=== PATIENT | male | born 1955 | race African-American/Black ===

== ENCOUNTER 2023-10-19 00:06 | Emergency (ER) | payer MEDICARE, SELFPAY ==
[2023-10-19 00:07] VITALS: BP 153/68; PULSE 89; RESP 18; TEMP 37.2; O2SAT 96; BMI 22.2
--- NOTE | 2023-10-19 00:25 | EDS_ITS ---
HPI History of Present Illness Chief Complaint: General Illness Informant: patient and family Narrative Narrative: Family member brings in his patient because has not been feeling well for 3 days, and he seemed a little confused tonight. Patient states he had a bout of diarrhea today. States has been feeling generally weak and a little dehydrated. He has urinary frequency, so he has not been drinking as much water because it makes him have to urinate even more. He is a diabetic but was controlled with diet, then 1 point he was put on metformin but he went to the doctor his blood sugar was low so they took him off the metformin estimated 6 months or so ago. The last time he checked his blood sugar with a finger prick was about 2 months ago. Family member states she was gone for 9 days with some friends and came back to him like this and it is a big change. [facility] Medical History (Updated 10/19/23 @ 04:[address] Juan M Ferris MD) Hearing deficit Type 2 diabetes mellitus Allergy/AdvReac Type Severity Reaction Status Date / Time No Known Allergies Allergy Verified 10/19/23 00:07 Social History Smoking Status: Never smoker ROS ROS ED Constitutional Constitutional ED: Reports fatigue and malaise; Denies chills or fever(s) Eyes Eyes: Denies change in vision or diplopia ENT ENT ED: Reports dry mouth; Denies rhinorrhea or sore throat Cardiovascular Cardiovascular: Denies chest pain or palpitations Respiratory/Chest Respiratory/Chest: Denies cough or dyspnea Gastrointestinal Gastrointestinal: Reports diarrhea; Denies abdominal pain, nausea or vomiting Genitourinary Genitourinary ED: Reports urinary frequency; Denies dysuria or hematuria Musculoskeletal Musculoskeletal: Denies back pain or neck pain Integumentary Denies abscess or rash Neurologic Neurologic: Reports confusion; Denies headache(s), paresthesias or weakness Psychiatric Psychiatric: Denies anxiety or suicidal thoughts EXAM Physical Exam Const Vital Signs: 10/19/23 00:07 10/19/23 01:00 10/19/23 02:12 Temperature 98.9 F 99.9 F H Temperature Source Oral Oral Pulse Rate 89 68 Respiratory Rate 18 16 Respiratory Effort Normal Respiratory Pattern Normal Blood Pressure 153/68 H 153/68 H Blood Pressure Mean 96 96 Pulse Ox 96 98 Oxygen Delivery Method Room Air 10/19/23 02:20 10/19/23 02:30 10/19/23 02:45 Temperature 99.5 F H Temperature Source Oral Pulse Rate Respiratory Rate Respiratory Effort Respiratory Pattern Blood Pressure 153/71 H 145/67 H Blood Pressure Mean 93 89 Pulse Ox 99 98 97 Oxygen Delivery Method Positive well nourished and well developed General Appearance ED: well developed and NAD HEENT Reports moist mucous membranes normocephalic and atraumatic Eyes PERRL and EOMs intact bilaterally Neck full ROM, no lymphadenopathy, supple, no meningeal signs and thyroid normal Chest Wall inspection of chest normal and palpation of chest normal Resp normal respiratory effort and clear to auscultation bilaterally Cardio regular rate, regular rhythm and no murmurs Rate: tachycardic GI non-tender and non-distended Auscultation: normoactive bowel sounds Palpation: soft Back/Spine no CVA tenderness General Back: other FROM Extremity normal to inspection General Extremety ED: Negative for edema, pulses abnormal or tenderness General Extremity: Negative for edema or pulses abnormal Neuro oriented x3, CN's II-XII intact bilaterally and no sensory deficits noted Sensorium / Orientation: awake and alert Motor Exam: strength 5/5 throughout Skin no rashes or lesions noted and no wounds MDM MDM MDM Narrative Medical decision making narrative: Patient sounds like he is having urinary frequency possibly due to hyperglycemia possibly due to infection. We started with a BGT, it is 246, which is abnormally high but not as high as I expected. He is not dyspneic or tachypneic or appearing like he is in DKA. Obtain some basic labs in addition to urinalysis. Did an EKG, he was initially tachycardic but by the time EKG was obtained his pulse was down to the 80s, it is abnormal but there is no old 1 for comparison so I ran a troponin. It is within normal limits and he has been having symptoms for several days. His other blood counts are noted. His BUN and creatinine are abnormal but I do not have any other values to compare it with since he has never been here before. However I was able to access [facility] and see that he had a record from 2018 at [facility] showing a normal creatinine of 0.84 with a BUN of 19 as part of a renal function panel. Of course, it is unknown if his creatinine elevation is acute or happened a long time ago as there is 6 years in between these 2 measurements. I do not think he needs to be admitted for this abnormality at this time, it can be followed up on as an outpatient. In discussing his blood sugar further with him, he admits that he removed himself from metformin when his blood sugar was low at 1 point. I advised him to go back on the medication which he has at home, and reassured him that this medication will not cause a hypoglycemic reaction. It took him a while to give us a urine sample, it shows proteinuria but no signs of infection. Patient is doing well clinically and hemodynamically. At this time my recommendation is to go back on his metformin, stay hydrated, and follow-up with his doctor for repeat testing. The proteinuria suggest kidney injury, but he is also probably dehydrated due to the glycosuria. This will need to be repeated but he does not need to be admitted for emergently. History & Record Review Additional record(s) reviewed:: Prior labs (, 11/21/2017 renal function panel) Lab Data Attestation: I reviewed the patient's lab results. Labs: Laboratory Results - last 24 hr 10/19/23 10/19/23 10/19/23 00:45 01:10 02:55 WBC 9.9 RBC 3.97 L Hgb 11.2 L Hct 35.2 L MCV 88.7 MCH 28.2 MCHC 31.8 L RDW Std Deviation 42.5 RDW Coeff of Natalee 13.0 Plt Count 146 L MPV 11.8 Immature Gran % (Auto) 1.200 H Neut % (Auto) 83.0 H Lymph % (Auto) 5.7 L Elbert % (Auto) 9.9 Eos % (Auto) 0.0 Baso % (Auto) 0.2 Absolute Neuts (auto) 8.2 H Absolute Lymphs (auto) 0.56 L Nucleated RBC % 0 Sodium 133 L Potassium 3.7 Chloride 99 Carbon Dioxide 28.0 Anion Gap 6 BUN 32 H Creatinine 1.70 H Estim Creat Clear Calc 39.12 Est GFR (MDRD) Af Amer 51 L Est GFR (MDRD) Non-Af 43 L BUN/Creatinine Ratio 18.8 Glucose 201 H Calcium 8.8 Troponin I High Sens 58 Urine Color Yellow Urine Clarity Clear Urine pH 6.0 Ur Specific [place] 1.015 Urine Protein 500 H Urine Glucose (UA) Normal Urine Ketones 5 H Urine Occult Blood 50 H Urine Nitrite Negative Urine Bilirubin Negative Urine Urobilinogen Normal Ur Leukocyte Esterase Negative Urine RBC 0 SEEN Urine WBC 0 SEEN Ur Squamous Epith Cells 0 SEEN Urine Bacteria 1+ Urine Mucus 0 SEEN POC Glucose 247 H Rhythm Strip Rhythm Strip: Sinus Rhythm Rate: 90 Ectopy: PVC(s) EKG Initial EKG: Attestation: I personally reviewed and interpreted this EKG as follows: Interpretation: Sinus Rhythm and Non-Specific ST Changes (0.5mm STD V4-6 and I, aVL laterally w/ T wave inv's, upsloping FRANK V1-2 1mm) Prior EKG tracings: not available for review Prior: No Prior Discharge Plan Triage Chief Complaint: General Illness ED Provider: Juan M Ferris Dx/Rx/DC Orders Clinical Impression: Hyperglycemia due to type 2 diabetes mellitus, Renal insufficiency, Proteinuria Instructions: Diabetes and Kidney Disease, Blood Sugar Check Steps Primary Care Provider: Sivan Henderson Referrals: Sivan Henderson MD [Primary Care Provider] - 3-5 Days Activity Restrictions/Additional Instructions: Take your metformin as previously prescribed. Drink plenty of water. Print Language: Indonesian Disposition Disposition: Home, Self Care
--- NOTE | 2023-10-19 00:25 | EKG12_ITS ---
Test Reason : BB Blood Pressure : / mmHG Vent. Rate : 091 BPM Atrial Rate : 091 BPM P-R Int : 166 ms QRS Dur : 088 ms QT Int : 318 ms P-R-T Axes : 062 -07 101 degrees QTc Int : 391 ms Sinus rhythm with occasional Premature ventricular complexes Possible Left atrial enlargement Left ventricular hypertrophy ( R in aVL , Sokolow-Gilbert ) ST & T WAVE ABNORMALITY, PROBABLY LVH Abnormal ECG Confirmed by Karlos Saleh ([id number]), acquisition editor HYACINTH CORONADO ([id number]) on 10/19/2023 8:11:37 AM Referred By: Confirmed By:Karlos Saleh
[2023-10-19 01:00] VITALS: BP 153/68; PULSE 68; RESP 16; TEMP 37.7; O2SAT 98
[2023-10-19 01:08] LABS: Absolute Lymphocyte Count 0.56 X10^3/uL (0.83-4.51); Absolute Neutrophil Count 8.2 X10^3/uL (2.0-7.7); Basophil# 0.02 X10^3/uL; Basophil% 0.2 % (0-1); Hematocrit 35.2 % (40-54); Hemoglobin 11.2 g/dL (13.0-16.5); Lymphocyte # 0.56 X10^3/ul (0.83-4.51); Lymphocyte % 5.7 % (19-41); Mean Corp Hgb Conc 31.8 g/dL (32-36); Mean Corpuscular Hgb 28.2 pg (27.0-32.0); Mean Corpuscular Volume 88.7 fL (80-94); Mean Platelet Vol. 11.8 fl (6.2-12.0); Monocyte# 0.98 X10^3/uL; Monocyte% 9.9 % (0-10); NRBC Flagged by Analyzer 0 % (0-5); Neutrophil # 8.19 X10^3/uL (2.7-7.7); POSITIVE DIFFERENTIAL YES; Platelet Count 146 K/mm3 (150-450); RBC Distribution Width SD 42.5 fl (35.1-43.9); Red Blood Count 3.97 M/mm3 (4.6-6.2); White Blood Count 9.9 K/mm3 (4.4-11.0)
[2023-10-19 01:26] LABS: Anion Gap 6 (5-15); BUN 32 mg/dL (7-18); BUN/Creat Ratio 18.8 RATIO (10-20); Calcium,Total 8.8 mg/dL (8.5-10.1); Chloride 99 mmol/L (98-107); EST Glomerular Filtration Rate 43 mL/min (>60); Est Glom Filt Rate - Afr Amer 51 mL/min (>60); Estimated Creatinine Clearance 39.12 ml/min; Glucose 201 mg/dL (74-106); Potassium 3.7 mmol/L (3.5-5.1); Sodium Level 133 mmol/L (136-145); Troponin-I HS 58 pg/mL (3.0-78.0)
[2023-10-19 01:29] LABS: Bedside Glucose 247 mg/dL (74-106)
[2023-10-19] MEDS: 0.9% Normal Saline (1000mL) 1,000 ML 999 ML IV (02:07)
[2023-10-19 02:20] VITALS: O2SAT 99
[2023-10-19 02:30] VITALS: BP 153/71; O2SAT 98
[2023-10-19 02:45] VITALS: BP 145/67; TEMP 37.5; O2SAT 97
[2023-10-19 03:01] LABS: Mucous, Urine 0 SEEN /hpf (<or=2+); Red Blood Cells-Urine 0 SEEN /hpf (0-5); Squamous Epithelial Cells - UA 0 SEEN /hpf (0-5); White Blood Cells 0 SEEN /hpf (0-5)
[2023-10-19 03:02] LABS: Glucose, Dipstick Normal (Normal); Ketone-Dipstick 5 mg/dl (Negative); Leukocyte Esterase-Dipstick Negative /ul (Negative); Nitrite-Dipstick Negative (Negative); Occult Blood-Urine 50 /ul (Negative); Protein-Dipstick 500 mg/dl (Negative); Specific Gravity, Urine 1.015 (1.002-1.030); Urine Bilirubin Dipstick Negative (Negative); Urine Urobilinogen Normal (Normal)
[2023-10-19 03:03] LABS: Color, Urine Yellow (Yellow); Urine Clarity Clear (Clear)
[2023-10-19 03:51] LABS: Bacteria 1+ /hpf (None Seen)
[2023-10-19 04:29] VITALS: BP 140/67; PULSE 72; RESP 16; TEMP 36.3; O2SAT 99
== END 2023-10-19 04:40 | disposition home or self-care (01) ==
PROVIDERS: Emergency Provider Emergency Medicine; PCP Family Medicine Sports Medicine; Visit Provider Emergency Medicine
DX: E11.65 Type 2 diabetes mellitus with hyperglycemia (principal); R80.9 Proteinuria, unspecified; N28.9 Disorder of kidney and ureter, unspecified
CPT/HCPCS: 96360; 99283; 80048; 81001; 82962; 84484; 85025; 93005; J7030; A4216

== ENCOUNTER 2023-10-21 20:06 | Inpatient (IN) | payer MEDICARE, SELFPAY ==
[2023-10-21] VITALS (9 sets, daily range): BP systolic 124–184; BP diastolic 63–84; PULSE 72–84; RESP 15–26; TEMP 36.4–37.1; O2SAT 94–100; BMI 23.6; BMI 21.9
--- NOTE | 2023-10-21 20:31 | EKG12_ITS ---
Test Reason : DYSRHYTHMIA Blood Pressure : / mmHG Vent. Rate : 086 BPM Atrial Rate : 086 BPM P-R Int : 154 ms QRS Dur : 092 ms QT Int : 366 ms P-R-T Axes : 070 003 073 degrees QTc Int : 437 ms Normal sinus rhythm Possible Left atrial enlargement Minimal voltage criteria for LVH, may be normal variant ( Sokolow-Gilbert ) Cannot rule out Septal infarct , age undetermined Abnormal ECG Confirmed by Karlos Saleh ([id number]), mapping editor PRICE CHAVEZ ([id number]) on 10/22/2023 10:15:13 AM Referred By: Confirmed By:Karlos Saleh
--- NOTE | 2023-10-21 20:32 | CT_ITS ---
STUDY: CT BRAIN WITHOUT CONTRAST REASON FOR EXAM: Male, 68 years old. dizzy RADIATION DOSAGE (If Supplied By Facility): CTDIvol = ( 44.99 ) mGy, DLP = ( 796.11 ) mGycm TECHNIQUE: Transaxial CT imaging of the brain was performed without administration of intravenous contrast material. Individualized dose optimization techniques were used for this CT. COMPARISON: No relevant priors. FINDINGS: Normal soft tissue structures. Normal calvarium. There is mild cerebral atrophy with widening of the extra-axial spaces and ventricular dilatation. There are areas of decreased attenuation within the white matter tracts of the supratentorial brain, consistent with microvascular disease changes. 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 Normal brainstem. Normal cerebellum. 5 mm round dense mass with possible small calcifications within the third ventricle and correlation with MRI with contrast would be useful. There is no intracranial hemorrhage. There are no findings of an acute ischemic infarction. Mucosal thickening of the right maxillary sinus consistent with chronic sinusitis. CT/Brain/Head without Contrast IMPRESSION: Chronic involutional changes of the brain. 5 mm round mass within the third ventricle and correlation with MRI with contrast recommended. Electronically Signed: Quintin Padilla MD at 21:04 EDT ,
--- NOTE | 2023-10-21 20:32 | EX.ED.DYSGE1 ---
HPI <TERESO Fermin - Last Filed: 10/21/23 22:05> History of Present Illness Chief Complaint: Fever Narrative Narrative: Patient is a 68-year-old male with history of hypertension hyperlipidemia, diabetes who presents to the emerged department for ongoing weakness, fever and chills. Patient is speaking for the patient, the patient is alert however slightly somnolent, patient does appear to be confused. Per the , the patient has been feeling this way for the last 4 to 5 days. Over the last 2 days, the patient had a 102 fever at home. Patient was seen here on early Wednesday morning, and was discharged home. The patient has not gotten better is actually getting worse. The is concerned because the patient is not acting like himself. Patient is urinating more frequently and sometimes incontinent. The did not give any antipyretics at home. PFSH <TERESO Fermin - Last Filed: 10/21/23 22:05> [facility] Medical History (Updated 10/21/23 @ 22:[address] Luis Carlos Wolff, DO) Hearing deficit Type 2 diabetes mellitus Home Medications ?Medication ?Instructions ?Recorded ?Last Taken ?Type ascorbic acid (vitamin C) 1,000 mg 1,000 mg PO DAILY 10/21/23 Unknown History tablet,extended release (C Complex) aspirin 81 mg chewable tablet 1 tab PO DAILY 10/21/23 Unknown History (Aspirin Childrens) atorvastatin 40 mg tablet 40 mg PO QHS 10/21/23 Unknown History cholecalciferol (vitamin D3) 25 25 mcg PO DAILY 10/21/23 Unknown History mcg (1,000 unit) capsule (Vitamin D3) lisinopril 40 mg tablet 40 mg PO DAILY 10/21/23 Unknown History metformin 500 mg tablet 500 mg PO BID 10/21/23 Unknown History metoprolol succinate 50 mg 50 mg PO DAILY 10/21/23 Unknown History tablet,extended release 24 hr multivitamin (Daily Multi-Vitamin 1 tab PO DAILY 10/21/23 Unknown History tablet) vitamin B12 500 mcg-folic acid 400 1 tab PO DAILY 10/21/23 Unknown History mcg tablet Allergy/AdvReac Type Severity Reaction Status Date / Time No Known Allergies Allergy Verified 10/21/23 20:09 Social History Smoking Status: Never smoker ROS <TERESO Fermin - Last Filed: 10/21/23 22:05> ROS ED ROS Narrative Constitutional: Negative for weight loss. Positive for fever, chills, weakness Eyes: Negative for vision loss, vision change, double vision ENT: Negative for any sore throat, ear pain, congestion Cardiovascular: Negative for any chest pain, tightness, palpitations Respiratory: Negative for any cough, sputum production, hemoptysis, dyspnea, dyspnea on exertion, orthopnea Gastrointestinal: Negative for any abdominal pain, nausea, vomiting, diarrhea, constipation, blood in stool, blood in vomit : Negative for any dysuria, retention, blood in urine. Positive for urinary frequency Muscle skeletal: Negative for any neck pain, back pain Neurological: Negative for any headache, syncope. Positive for dizziness Skin: Negative for any rashes, itching, abrasions, lacerations Psychiatric: Negative for any depression, anxiety, stress, suicidal ideation, homicidal ideation Hematologic: Negative for any excessive bruising, easy bleeding EXAM <Jorge L Ordoñez NP-C - Last Filed: 10/21/23 22:05> Physical Exam Narrative Exam Narrative: Vital signs reviewed. Patient is febrile here at 38.1. Patient is alert and orient x 1-2 however the does most the talking. The patient does appear to lose his thought when he starts speaking. HEET: Head normocephalic atraumatic, TMs clear bilaterally. Posterior pharynx is clear, dry mucous membranes. Nares clear bilaterally. Neck: Supple with no lymphadenopathy or tenderness. No signs of meningismus. Cardiac: Regular rate and rhythm no murmurs gallops or rubs, equal peripheral pulses bilaterally. Respiratory: Lung sounds are clear upper lobes, diminished lower lobes. No chest tenderness. Abdomen: Soft, nontender, nondistended. No abdominal bruit or pulsatile masses. No hepatosplenomegaly Extremities: No peripheral edema, no signs of gross trauma or deformity. Active full range of motion of all extremities. Neuro: Cranial nerves II through XII intact, no focal neurological deficits. Skin: Clean dry and intact with no rash, purpura, petechiae, vesicles or pustules. Backs/flank: No CVA tenderness, no midline spinal tenderness, no deformity. Psych: Normal mood and affect. No SI, HI or acute psychosis. Const Vital Signs: 10/21/23 20:07 10/21/23 20:09 10/21/23 21:09 Temperature 98.8 F 98.8 F 98.2 F Temperature Source Temporal Temporal Temporal Pulse Rate 84 84 84 Respiratory Rate 16 16 18 Blood Pressure 144/63 H 144/63 H 184/84 H Blood Pressure Mean 90 90 117 Pulse Ox 97 94 100 Oxygen Delivery Method Room Air Room Air Room Air 10/21/23 21:15 10/21/23 22:00 10/21/23 22:06 Temperature 98.5 F Temperature Source Temporal Pulse Rate 79 Respiratory Rate 16 Blood Pressure 133/63 H 133/63 H Blood Pressure Mean 86 86 Pulse Ox 96 Oxygen Delivery Method Room Air Room Air 10/21/23 22:30 Temperature 98.5 F Temperature Source Pulse Rate 80 Respiratory Rate 16 Blood Pressure 144/65 H Blood Pressure Mean 91 Pulse Ox 95 Oxygen Delivery Method Positive well nourished and well developed General Appearance ED: well developed <Dr. Luis Carlos Wolff DO - Last Filed: 10/21/23 22:43> Physical Exam Const Vital Signs: 10/21/23 20:07 10/21/23 20:09 10/21/23 21:09 Temperature 98.8 F 98.8 F 98.2 F Temperature Source Temporal Temporal Temporal Pulse Rate 84 84 84 Respiratory Rate 16 16 18 Blood Pressure 144/63 H 144/63 H 184/84 H Blood Pressure Mean 90 90 117 Pulse Ox 97 94 100 Oxygen Delivery Method Room Air Room Air Room Air 10/21/23 21:15 10/21/23 22:00 10/21/23 22:06 Temperature 98.5 F Temperature Source Temporal Pulse Rate 79 Respiratory Rate 16 Blood Pressure 133/63 H 133/63 H Blood Pressure Mean 86 86 Pulse Ox 96 Oxygen Delivery Method Room Air Room Air 10/21/23 22:30 Temperature 98.5 F Temperature Source Pulse Rate 80 Respiratory Rate 16 Blood Pressure 144/65 H Blood Pressure Mean 91 Pulse Ox 95 Oxygen Delivery Method MDM <TERESO Fermin - Last Filed: 10/21/23 22:05> MDM Lab Data Labs: Laboratory Results - last 24 hr 10/21/23 10/21/23 20:25 21:08 WBC 14.1 H RBC 4.18 L Hgb 11.9 L Hct 36.6 L MCV 87.6 MCH 28.5 MCHC 32.5 RDW Std Deviation 41.7 RDW Coeff of Natalee 13.0 Plt Count 206 MPV 11.8 Immature Gran % (Auto) 0.400 Neut % (Auto) 87.8 H Lymph % (Auto) 4.2 L [place] % (Auto) 7.5 Eos % (Auto) 0.0 Baso % (Auto) 0.1 Absolute Neuts (auto) 12.3 H Absolute Lymphs (auto) 0.59 L Nucleated RBC % 0 Differential Comment SEE COMMENT Platelet Estimate ADEQUATE RBC Morphology N CHROM Anisocytosis RARE PT 15.2 H INR 1.2 APTT 39.0 H Sodium 129 L Potassium 4.3 Chloride 96 L Carbon Dioxide 25.0 Anion Gap 8 BUN 29 H Creatinine 2.06 H Estim Creat Clear Calc 33.37 Est GFR (MDRD) Af Amer 41 L Est GFR (MDRD) Non-Af 34 L BUN/Creatinine Ratio 14.1 Glucose 240 H Lactic Acid 1.8 Calcium 8.6 Total Bilirubin 0.50 AST 79 H ALT 55 Alkaline Phosphatase 105 Total Protein 8.5 H Albumin 2.5 L Globulin 6.0 H Albumin/Globulin Ratio 0.4 L Urine Color Yellow Urine Clarity Sl. Cloudy Urine pH 6.0 Ur Specific [place] 1.015 Urine Protein 500 H Urine Glucose (UA) Normal Urine Ketones Negative Urine Occult Blood 25 H Urine Nitrite Negative Urine Bilirubin Negative Urine Urobilinogen Normal Ur Leukocyte Esterase Negative Urine RBC 0-5 SEEN Urine WBC 0-5 SEEN Ur Squamous Epith Cells 0-5 SEEN Amorphous Sediment 2+ URATE Urine Bacteria RARE Urine Mucus 0 SEEN Radiography Diagnostic Testing: Clinical Impression(s) from Imaging Studies Brain CT 10/21/23 20:32 IMPRESSION: Chronic involutional changes of the brain. 5 mm round mass within the third ventricle and correlation with MRI with contrast recommended. Electronically Signed: Quintin Padilla MD at 21:04 EDT Reading Location ID and State: [id number] / [employer] Tel , Service support , Chest X-Ray 10/21/23 20:50 IMPRESSION: Left lower lobe pneumonia. Electronically Signed: Quintin Padilla MD at 21:04 EDT , EKG Normal sinus rhythm: Attestation: I personally reviewed and interpreted this EKG as follows: Treatment and Re-Evaluation :: Differential diagnosis includes however is not limited to: Septicemia, UTI, COVID-19 influenza, RSV, CVA, dehydration, hyperglycemia Patient does appear weak, does appear ill appearing, he was febrile on my initial evaluation. He is alert however some of his answers are not appropriate. Per the , this is not like him. Patient secondary to the fever, multiple days of altered mental status, patient received a septic workup. Patient received a chest x-ray, CT scan of the brain. Urinalysis basic laboratory values. Patient be given oral Tylenol because he has not received any recently. IV fluids will be given. All radiologic examinations were read, reviewed by the emergency department attending. From these reads, a plan of care will be put in place. Patient CBC shows a leukocytosis with a white blood count of 14.1, hemoglobin 11.9, patient's PT was 15.2 with an INR of 1.2 APTT 39.0. Patient's sodium was low at 129, it was 133 2 days ago. Patient's creatinine was 2.06, 2 days ago was 1.7. Patient's AST is 79, patient currently waiting for CT scan of the brain, chest x-ray. Patient given IV fluids, oral Tylenol. <Dr. Luis Carlos Wolff, DO - Last Filed: 10/21/23 22:43> [facility] Narrative Medical decision making narrative: I have personally performed a face to face assessment of the patient and have reviewed the SANDRA Note. I performed a substantive portion of the visit including all aspects of the following. My tenorio findings include: History is [patient presents to the emergency department with complaint of fever and confusion x 5 days. Seen in the emergency department 5 days ago for same complaint. Fever up to 102. He had had 1 or 2 episodes of diarrhea. He was given fluids and had a workup in the emergency department and sent home. He continued with fever. He is weak and having a hard time ambulating and making at the bathroom on time. He stumbles. Has been off balance. Denies headache. Denies chest pain. Denies abdominal pain. No rashes. He has had no vomiting or diarrhea or significant cough.] Exam is [HEENT-PERRLA, EOMI. Cranial nerves II through XII grossly intact. TMs clear. Mucous membranes moist. No adenopathy. Cardiovascular-regular rate and rhythm without murmur or ectopy Lungs-clear to auscultation, chest wall stable without crepitus or subcu emphysema Abdomen-normoactive bowel sounds, soft, nontender, no rebound or rigidity, no peritoneal signs. Extremities-intact ?4, normal range of motion, normal pulses, atraumatic] Medical Decison Making [patient presents with fever and confusion ongoing for at least 5 days. Seen in the emergency department 4 days ago had workup that was relatively benign. IV line established. Blood cultures ordered. CBC with differential white count of 14.1 with hemoglobin 11.9 platelet count of 206. Chemistries unremarkable. BUN was elevated 29 and creatinine 2.06. Glucose was 240. Urinalysis was unremarkable 1 view chest x-ray obtained showed left lower lobe infiltrate. Patient started on Rocephin and Zithromax. CT scan of the brain without contrast obtained showed 5 mm mass in the third ventricle and recommended obtaining MRI to evaluate further.] Case discussed with hospitalist will evaluate patient for admission Other additions or changes: [None] Lab Data Attestation: I reviewed the patient's lab results. Labs: Laboratory Results - last 24 hr 10/21/23 10/21/23 20:25 21:08 WBC 14.1 H RBC 4.18 L Hgb 11.9 L Hct 36.6 L MCV 87.6 MCH 28.5 MCHC 32.5 RDW Std Deviation 41.7 RDW Coeff of Natalee 13.0 Plt Count 206 MPV 11.8 Immature Gran % (Auto) 0.400 Neut % (Auto) 87.8 H Lymph % (Auto) 4.2 L [place] % (Auto) 7.5 Eos % (Auto) 0.0 Baso % (Auto) 0.1 Absolute Neuts (auto) 12.3 H Absolute Lymphs (auto) 0.59 L Nucleated RBC % 0 Differential Comment SEE COMMENT Platelet Estimate ADEQUATE RBC Morphology N CHROM Anisocytosis RARE PT 15.2 H INR 1.2 APTT 39.0 H Sodium 129 L Potassium 4.3 Chloride 96 L Carbon Dioxide 25.0 Anion Gap 8 BUN 29 H Creatinine 2.06 H Estim Creat Clear Calc 33.37 Est GFR (MDRD) Af Amer 41 L Est GFR (MDRD) Non-Af 34 L BUN/Creatinine Ratio 14.1 Glucose 240 H Lactic Acid 1.8 Calcium 8.6 Total Bilirubin 0.50 AST 79 H ALT 55 Alkaline Phosphatase 105 Total Protein 8.5 H Albumin 2.5 L Globulin 6.0 H Albumin/Globulin Ratio 0.4 L Urine Color Yellow Urine Clarity Sl. Cloudy Urine pH 6.0 Ur Specific [place] 1.015 Urine Protein 500 H Urine Glucose (UA) Normal Urine Ketones Negative Urine Occult Blood 25 H Urine Nitrite Negative Urine Bilirubin Negative Urine Urobilinogen Normal Ur Leukocyte Esterase Negative Urine RBC 0-5 SEEN Urine WBC 0-5 SEEN Ur Squamous Epith Cells 0-5 SEEN Amorphous Sediment 2+ URATE Urine Bacteria RARE Urine Mucus 0 SEEN Radiography Diagnostic Testing: Clinical Impression(s) from Imaging Studies Brain CT 10/21/23 20:32 IMPRESSION: Chronic involutional changes of the brain. 5 mm round mass within the third ventricle and correlation with MRI with contrast recommended. Electronically Signed: Quintin Padilla MD at 21:04 EDT Reading Location ID and State: [address] [place] [address] Tel , Service support , Chest X-Ray 10/21/23 20:50 IMPRESSION: Left lower lobe pneumonia. Electronically Signed: Quintin Padilla MD at 21:04 EDT Reading Location ID and State: [place] / [employer] Tel , Service support , 1 view chest x-ray obtained interpreted by myself as increased markings left lower lobe suspicious for infiltrate. Radiology in agreement. EKG Initial EKG: Attestation: I personally reviewed and interpreted this EKG as follows: Comments: Sinus rhythm with rate of 86 bpm with old septal infarct Discharge Plan Dx/Rx/DC Orders Clinical Impression: Fever, Pneumonia, Confusion, Mass of brain Disposition Disposition: Acute Care [facility]
[2023-10-21 20:40] LABS: Mucous, Urine 0 SEEN /hpf (<or=2+)
[2023-10-21 20:43] LABS: Color, Urine Yellow (Yellow); Glucose, Dipstick Normal (Normal); Ketone-Dipstick Negative (Negative); Leukocyte Esterase-Dipstick Negative /ul (Negative); Nitrite-Dipstick Negative (Negative); Occult Blood-Urine 25 /ul (Negative); Protein-Dipstick 500 mg/dl (Negative); Specific Gravity, Urine 1.015 (1.002-1.030); Urine Bilirubin Dipstick Negative (Negative); Urine Clarity Sl. Cloudy (Clear); Urine Urobilinogen Normal (Normal)
--- NOTE | 2023-10-21 20:50 | RAD_ITS ---
STUDY: X-RAY CHEST REASON FOR EXAM: Male, 68 years old. cough TECHNIQUE: Single AP portable view of the chest. COMPARISON: None. FINDINGS: Status post median sternotomy. Alveolar opacity in the lower left lung consistent with left lower lobe pneumonia. There is no demonstrated pleural abnormality. Normal size heart. Normal mediastinum and nam. Normal visualized pulmonary arteries. Normal visualized aortic arch and descending thoracic aorta. Normal visualized thoracic spine. Normal visualized ribs, clavicles, and shoulders. There is no demonstrated abnormality of the visualized soft tissue structures of the upper abdomen. RAD/Chest 1 View (Portable) IMPRESSION: Left lower lobe pneumonia. Electronically Signed: Quintin Padilla MD at 21:04 EDT ,
[2023-10-21 20:53] LABS: Amorphous Sediment 2+ URATE; Bacteria RARE /hpf (None Seen); Red Blood Cells-Urine 0-5 SEEN /hpf (0-5); Squamous Epithelial Cells - UA 0-5 SEEN /hpf (0-5); White Blood Cells 0-5 SEEN /hpf (0-5)
[2023-10-21 21:18] LABS: Absolute Lymphocyte Count 0.59 X10^3/uL (0.83-4.51); Absolute Neutrophil Count 12.3 X10^3/uL (2.0-7.7); Basophil# 0.02 X10^3/uL; Basophil% 0.1 % (0-1); Hematocrit 36.6 % (40-54); Hemoglobin 11.9 g/dL (13.0-16.5); Lymphocyte # 0.59 X10^3/ul (0.83-4.51); Lymphocyte % 4.2 % (19-41); Mean Corp Hgb Conc 32.5 g/dL (32-36); Mean Corpuscular Hgb 28.5 pg (27.0-32.0); Mean Corpuscular Volume 87.6 fL (80-94); Mean Platelet Vol. 11.8 fl (6.2-12.0); Monocyte# 1.05 X10^3/uL; Monocyte% 7.5 % (0-10); NRBC Flagged by Analyzer 0 % (0-5); Neutrophil # 12.34 X10^3/uL (2.7-7.7); Neutrophil % 87.8 % (47-70); POSITIVE DIFFERENTIAL YES; Platelet Count 206 K/mm3 (150-450); RBC Distribution Width SD 41.7 fl (35.1-43.9); Red Blood Count 4.18 M/mm3 (4.6-6.2); White Blood Count 14.1 K/mm3 (4.4-11.0)
[2023-10-21] MEDS: 0.9% Normal Saline (1000mL) 1,000 ML 999 ML IV (21:18)
[2023-10-21] MEDS: Acetaminophen 500 MG Tablet 1000 MG PO (21:22)
[2023-10-21 21:31] LABS: International Normalized Ratio 1.2; Prothrombin Time (Protime)PT. 15.2 SECONDS (11.7-14.9)
[2023-10-21 21:37] LABS: ALB/GLOB Ratio 0.4 RATIO (0.9-2.4); AST(SGOT) 79 U/L (15-37); Alanine Aminotransfer ALT/SGPT 55 U/L (16-61); Albumin, Serum 2.5 g/dL (3.2-5.0); Alkaline Phosphatase 105 U/L (45-117); Anion Gap 8 (5-15); BUN 29 mg/dL (7-18); BUN/Creat Ratio 14.1 RATIO (10-20); Calcium,Total 8.6 mg/dL (8.5-10.1); Chloride 96 mmol/L (98-107); Creatinine, Serum 2.06 mg/dL (0.70-1.30); EST Glomerular Filtration Rate 34 mL/min (>60); Est Glom Filt Rate - Afr Amer 41 mL/min (>60); Estimated Creatinine Clearance 33.37 ml/min; Glucose 240 mg/dL (74-106); Potassium 4.3 mmol/L (3.5-5.1); Protein, Total 8.5 g/dL (6.4-8.2); Sodium Level 129 mmol/L (136-145)
[2023-10-21 21:44] LABS: Lactic Acid 1.8 mmol/L (0.4-1.9)
[2023-10-21 21:46] LABS: Differential Indicated SCAN CRITERIA MET
[2023-10-21 21:48] LABS: Anisocytosis RARE; Platelet Estimate ADEQUATE (ADEQ); Red Cell Morphology N CHROM NORMAL (NORM C&C)
[2023-10-21] MEDS: Ceftriaxone 1 GM/50 ML BAG IV (22:25)
--- NOTE | 2023-10-21 22:32 | PCM.HP.STD ---
HPI - General General Date of Admission: 10/21/23 Date of Service: 10/21/23 Chief Complaint: Fever and Confusion. HPI Narrative RIAN PONCE, is a 68 M with a past medical history of essential hypertension, hyperlipidemia, DM-2; of unknown control on metformin and recent evaluation in our ER here for fever, diarrhea and altered mental status with suspicion for possible adverse drug reaction to metformin on October 19, 2023, who re-presents to [facility] ER complaining of fever and confusion. Mr. Ponce is not a fully-reliable historian at this time so information was gathered from chart, medical staff, computer and his at the bedside. According to his the patient's symptoms began approximately 4 to 5 days prior to admission with intermittent fevers up to 102 ?F for the past 2 days that she treated with oral Tylenol. The patient also admits to increased urination and intermittent urinary incontinence and his is concerned because he is not acting like himself and his was at the bedside and greatly helped to augment the history. There is no report of nausea, vomiting, constipation, chest pain or shortness of breath but he does admit to generalized weakness with ambulatory dysfunction. In the ER he was noted to have radiographic evidence of a Left lower lobe infiltrate consistent with suspected community-acquired pneumonia with laboratory evidence of leukocytosis of 14.1 present on admission complicated by clinical evidence of respiratory insufficiency and laboratory evidence of mild dehydration with an elevated serum creatinine of 2.06 mg/dL and a BUN of 29 mg/dL (up from his baseline of 1.76 mg/dL) a few days ago with mild hyponatremia of 129 mmol/L present on admission and hypoalbuminemia of 2.5 g/dL present on admission suspicious for protein-calorie malnutrition compounded by acute metabolic encephalopathy and generalized weakness with ambulatory dysfunction with CT evidence of a ~5 mm round mass in his third ventricle with recommendation made to obtain MRI and he was then admitted to the general medical floor for ongoing care for status expected to be greater than 2 midnights. [facility] Medical History HTN (hypertension) Hearing deficit Type 2 diabetes mellitus Home Medications ?Medication ?Instructions ?Recorded ?Last Taken ?Type ascorbic acid (vitamin C) 1,000 mg 1,000 mg PO DAILY 10/21/23 Unknown History tablet,extended release (C Complex) aspirin 81 mg chewable tablet 1 tab PO DAILY 10/21/23 Unknown History (Aspirin Childrens) atorvastatin 40 mg tablet 40 mg PO QHS 10/21/23 Unknown History cholecalciferol (vitamin D3) 25 25 mcg PO DAILY 10/21/23 Unknown History mcg (1,000 unit) capsule (Vitamin D3) garlic 100 mg tablet 100 mg PO DAILY 10/21/23 Unknown History lisinopril 40 mg tablet 40 mg PO DAILY 10/21/23 Unknown History metformin 500 mg tablet 500 mg PO BID 10/21/23 Unknown History metoprolol succinate 50 mg 50 mg PO DAILY 10/21/23 Unknown History tablet,extended release 24 hr multivitamin (Daily Multi-Vitamin 1 tab PO DAILY 10/21/23 Unknown History tablet) omega-3 fatty acids 500 mg PO DAILY 10/21/23 Unknown History vitamin B12 500 mcg-folic acid 400 1 tab PO DAILY 10/21/23 Unknown History mcg tablet Allergy/AdvReac Type Severity Reaction Status Date / Time No Known Allergies Allergy Verified 10/21/23 20:09 Social History Smoking Status: Never smoker ROS ROS Narrative Full review of systems was not possible due to patient's acute illness and metabolic encephalopathy causing confusion. Vital Signs Vital Signs Vital Signs: 10/21/23 20:07 10/21/23 20:09 10/21/23 21:09 Temperature 98.8 F 98.8 F 98.2 F Temperature Source Temporal Temporal Temporal Pulse Rate 84 84 84 Respiratory Rate 16 16 18 Blood Pressure 144/63 H 144/63 H 184/84 H Blood Pressure Mean 90 90 117 Pulse Ox 97 94 100 Oxygen Delivery Method Room Air Room Air Room Air 10/21/23 21:15 10/21/23 22:00 10/21/23 22:06 Temperature 98.5 F Temperature Source Temporal Pulse Rate 79 Respiratory Rate 16 Blood Pressure 133/63 H 133/63 H Blood Pressure Mean 86 86 Pulse Ox 96 Oxygen Delivery Method Room Air Room Air 10/21/23 22:30 Temperature 98.5 F Temperature Source Pulse Rate 80 Respiratory Rate 16 Blood Pressure 144/65 H Blood Pressure Mean 91 Pulse Ox 95 Oxygen Delivery Method Weight Weight: 160 lb Body Mass Index (BMI) 23.6 Physical Exam Const alert, no apparent distress and average body habitus Constitutional Narrative: Patient appears acutely ill and is notably febrile and confused. General Appearance: cooperative Orientation / Consciousness: confused and lethargic HEENT normocephalic, head/scalp atraumatic and hearing grossly normal bilaterally HEENT Narrative: Mucous membranes dry. Eyes PERRL and EOMs intact bilaterally Neck no lymphadenopathy and supple Resp Resp Narrative: Decreased breath sounds over left lower lobe. Cardio regular rate and regular rhythm GI normal to inspection, nondistended, normoactive bowel sounds, soft to palpation, non-tender and non-distended Extremity normal to inspection and full ROM Skin Skin Narrative: Patient has no evidence of abscess, rash or jaundice. Neuro CN's II-XII intact bilaterally, moves all extremities and no focal motor deficits Sensorium / Orientation: awake, alert, oriented to person and oriented to place Speech: speech normal Psych affect normal Results Medical Records Data Attestation: I reviewed the patient's medical records Lab / Micro Data Attestation: I reviewed the patient's lab results. 10/21/23 21:08 10/21/23 21:08 Labs: Laboratory Results - last 24 hr 10/21/23 20:25: Urine Color Yellow, Urine Clarity Sl. Cloudy, Urine pH 6.0, Ur Specific [place] 1.015, Urine Protein 500 H, Urine Glucose (UA) Normal, Urine Ketones Negative, Urine Occult Blood 25 H, Urine Nitrite Negative, Urine Bilirubin Negative, Urine Urobilinogen Normal, Ur Leukocyte Esterase Negative, Urine RBC 0-5 SEEN, Urine WBC 0-5 SEEN, Ur Squamous Epith Cells 0-5 SEEN, Amorphous Sediment 2+ URATE, Urine Bacteria RARE, Urine Mucus 0 SEEN 10/21/23 21:08: WBC 14.1 H, RBC 4.18 L, Hgb 11.9 L, Hct 36.6 L, MCV 87.6, MCH 28.5, MCHC 32.5, RDW Std Deviation 41.7, RDW Coeff of Natalee 13.0, Plt Count 206, MPV 11.8, Immature Gran % (Auto) 0.400, Neut % (Auto) 87.8 H, Lymph % (Auto) 4.2 L, [place] % (Auto) 7.5, Eos % (Auto) 0.0, Baso % (Auto) 0.1, Absolute Neuts (auto) 12.3 H, Absolute Lymphs (auto) 0.59 L, Nucleated RBC % 0, Differential Comment SEE COMMENT, Platelet Estimate ADEQUATE, RBC Morphology N CHROM, Anisocytosis RARE, PT 15.2 H, INR 1.2, APTT 39.0 H, Sodium 129 L, Potassium 4.3, Chloride 96 L, Carbon Dioxide 25.0, Anion Gap 8, BUN 29 H, Creatinine 2.06 H, Estim Creat Clear Calc 33.37, Est GFR (MDRD) Af Amer 41 L, Est GFR (MDRD) Non-Af 34 L, BUN/Creatinine Ratio 14.1, Glucose 240 H, Lactic Acid 1.8, Calcium 8.6, Total Bilirubin 0.50, AST 79 H, ALT 55, Alkaline Phosphatase 105, Total Protein 8.5 H, Albumin 2.5 L, Globulin 6.0 H, Albumin/Globulin Ratio 0.4 L Micro: Microbiology 10/21/23 20:56 Mucosa - Nasopharyngeal SARS-CoV-2, Influenza & RSV (PCR) - Final Imaging Radiology Impression Brain CT 10/21/23 20:32 IMPRESSION: Chronic involutional changes of the brain. 5 mm round mass within the third ventricle and correlation with MRI with contrast recommended. Electronically Signed: Quintin Padilla MD at 21:04 EDT Reading Location ID and State: [id number] / [employer] Tel , Service support , Chest X-Ray 10/21/23 20:50 IMPRESSION: Left lower lobe pneumonia. Electronically Signed: Quintin Padilla MD at 21:04 EDT Reading Location ID and State: [id number] / [employer] Tel , Service support , Assessment & Plan Assessment/Plan (1) Pneumonia: QUALIFIERS: Laterality: left Lung location: lower lobe of lung Pneumonia type: due to unspecified organism Qualified Code(s): J18.9 - Pneumonia, unspecified organism (2) Respiratory insufficiency: (3) Mass of brain: (4) Confusion: (5) Fever: QUALIFIERS: Fever type: due to other condition Qualified Code(s): R50.81 - Fever presenting with conditions classified elsewhere (6) Renal insufficiency: (7) Dehydration: (8) Hyponatremia: (9) Hypoalbuminemia: (10) Generalized weakness: (11) Ambulatory dysfunction: (12) Adverse drug reaction: QUALIFIERS: Encounter type: initial encounter Qualified Code(s): T50.905A - Adverse effect of unspecified drugs, medicaments and biological substances, initial encounter (13) Diarrhea: QUALIFIERS: Diarrhea type: unspecified type Qualified Code(s): R19.7 - Diarrhea, unspecified PLAN: Plan 1. Left lower lobe infiltrate consistent with suspected community-acquired pneumonia with leukocytosis of 14.1 present on admission - Admit to general medical floor. Continue broad-spectrum antibiotics with IV Rocephin and IV azithromycin and await culture and sensitivity data. Check urine antigens for Legionella and strep pneumonia. Give Mucinex 1200 mg p.o. twice daily. 2. Respiratory insufficiency attributable to #1 - Wean supplemental oxygen as tolerated. 3. CT evidence of a ~5 mm round mass in his third ventricle with recommendation made to obtain MRI compounding #1 & #2 - Check MRI of the brain as recommended by radiology. 4. Mild hyponatremia of 129 mmol/L along with additional laboratory evidence of dehydration with elevated serum creatinine of 2.06 milligram per deciliter present on admission (up from his baseline of 1.76 mg/dL) a few days ago compounding #1 - #3 - Volume resuscitate with normal saline IV fluid and recheck levels in a.m. to ensure improvement. Hold lisinopril or any other potentially nephrotoxic agents. Check urine and serum osmolality. 5. Hypoalbuminemia of 2.5 g/dL present on admission suspicious for protein calorie malnutrition adding to the pathology of #1 - #4 - Check prealbumin to confirm suspicion. Add Ensure to meals. 6. Recent evaluation in the ER here for fever, diarrhea and altered mental status with suspicion for possible adverse drug reaction to metformin on October 19, 2023 - Noted. Metformin will be stopped in any case due to decreased renal function and suspected ongoing side effects. Check stool studies to evaluate for possible infectious cause of diarrhea and placed on enteric precautions. Hemoccult stools. 7. Acute metabolic encephalopathy arising from #1 - #6 - Continue supportive care outlined above and monitor for improvement. Check TSH, B12, folate, UDS and DWIGHT to evaluate for other potential reversible causes of confusion. 8. Generalized weakness with ambulatory dysfunction emanating from #1 - #7 - PT/OT and case management to consult and treat further recommendations without appreciated advance. 9. Essential hypertension - Resume treatment with metoprolol but hold lisinopril. Give IV hydralazine as needed for systolic blood pressure greater than 160 mmHg. 10. Hyperlipidemia - Continue statin. 11. DM-2; of unknown control on metformin - ADA diet. FSBS q. AC/HS plus lowest intensity sliding scale insulin. Check hemoglobin A1c to objectively evaluate quality of diabetic control. 12. DVT prophylaxis - Heparin 5000 units SQ twice daily plus SCDs. Total time: Approximately 75 minutes. Charges/Coding Visit Charges Inpatient E&M: 60897 Init Hosp L3
[2023-10-21] MEDS: Azithromycin 500 MG in Dextrose 5%-Water (250mL Bag) 250 ML 250 MG IV (23:07)
[2023-10-21 23:52] LABS: Osmolality, Urine 415 mOsm/KG
[2023-10-21 23:57] LABS: Hemoglobin A1c 8.1 % (3.8-5.6)
[2023-10-22] VITALS (14 sets, daily range): BP systolic 115–160; BP diastolic 64–92; PULSE 59–89; RESP 15–28; TEMP 37.1–38.8; O2SAT 94–99; BMI 23.3
[2023-10-22 00:12] LABS: Amphetamine Urine NEGATIVE (<1000 ng/mL); Barbiturate Urine NEGATIVE (< 200 ng/mL); Benzodiazepine Urine NEGATIVE (< 200 ng/mL); Cocaine Urine NEGATIVE (< 300 ng/mL); Ecstacy Urine NEGATIVE (< 500 ng/mL); Methadone Urine NEGATIVE (< 300 ng/mL); Opiates Urine NEGATIVE (< 300 ng/mL); PCP Urine NEGATIVE (< 25 ng/mL); THC Urine NEGATIVE (< 50 ng/mL); Vista UDS pH Range 4
[2023-10-22] MEDS: 0.9% Normal Saline (1000mL) 1,000 ML 70 ML IV ×3 (00:23→21:35)
[2023-10-22 00:33] LABS: Prealbumin 7.6 mg/dL (20.0-40.0); Thyroid Stim Hormone (TSH) 3.03 uIU/mL (0.358-3.74)
[2023-10-22 00:38] LABS: Vitamin B12 478 pg/mL (211-911)
[2023-10-22 01:45] LABS: Osmolality, Serum 291 mOsm/KG (280-301)
[2023-10-22] MEDS: Acetaminophen 325 MG Tablet 650 MG PO ×2 (05:30→23:21)
[2023-10-22 06:49] LABS: Absolute Lymphocyte Count 0.37 X10^3/uL (0.83-4.51); Absolute Neutrophil Count 11.1 X10^3/uL (2.0-7.7); Basophil# 0.02 X10^3/uL; Basophil% 0.2 % (0-1); Hemoglobin 10.7 g/dL (13.0-16.5); Lymphocyte # 0.37 X10^3/ul (0.83-4.51); Mean Corp Hgb Conc 32.4 g/dL (32-36); Mean Corpuscular Hgb 27.9 pg (27.0-32.0); Mean Corpuscular Volume 86.2 fL (80-94); Mean Platelet Vol. 12.1 fl (6.2-12.0); Monocyte# 0.92 X10^3/uL; Monocyte% 7.3 % (0-10); NRBC Flagged by Analyzer 0 % (0-5); Neutrophil # 11.14 X10^3/uL (2.7-7.7); Neutrophil % 88.9 % (47-70); POSITIVE DIFFERENTIAL YES; Platelet Count 181 K/mm3 (150-450); RBC Distribution Width CV 12.9 % (11.6-14.6); RBC Distribution Width SD 40.4 fl (35.1-43.9); Red Blood Count 3.83 M/mm3 (4.6-6.2); White Blood Count 12.5 K/mm3 (4.4-11.0)
[2023-10-22 07:11] LABS: Bedside Glucose 185 mg/dL (74-106)
--- NOTE | 2023-10-22 07:36 | PN.HOSP_ITS ---
Reason for Visit Reason for Visit: Fever/confusion Subjective Subjective Patient is a 68-year-old white male who presented to the emergency department at [facility] on 10/21/2023 with fever and confusion he presented to the emergency department here on 18 October with some fever, diarrhea, and altered mental status and there was some suspicion for possible adverse drug reaction to metformin at that time and he was discharged home. At this admission his gave most of the history and she reported that 4 to 5 days prior to admission he was having intermittent fevers up to 102 that have been predominantly present over the last 2 days that she had treated with Tylenol as well as increased urination with intermittent incontinence and the was concerned because he was not acting like himself. He had also had concomitant generalized weakness and gait dysfunction. Vital signs on presentation showed temperature 98.8, heart rate was 84, blood pressure was 144/63 and pulse ox was 97% on room air. Tmax since admission is 102. CBC on presentation showed a significant leukocytosis with a stable appearing anemia. There was a significant left shift with an 87.8% neutrophilia. Coags were slightly elevated from baseline. Chemistry panel showed hyponatremia with a sodium of 129 elevated BUN at 29 and serum creatinine of 2.06 with unknown baseline and a glucose of 240. His liver functions were fairly unremarkable. Vitamin B12 was normal folate was normal and TSH was 3.03. CT of the brain showed chronic delusional changes and a 5 mm round mass in the third ventricle. Chest x-ray was suggestive of a left lower lobe infiltrate on the rate however I did not appreciate it on my review of the imaging. Strep pneumo and Legionella antigens are negative. COVID/flu/RSV was unremarkable. Blood and urine cultures were obtained however his UA was not suggestive of infection. He was admitted to the medical floor and placed on CAP coverage with azithromycin and ceftriaxone. Patient seems to be mentating better. He is alert and oriented x 3 at this point. We did discuss the fact that we found a small stroke on his MRI and that is why we transition him down to PCU. Patient states overall he is feeling better as well. He denies any significant cough at this time however he did say that he had some cough about 3 days ago at 1 point he had some blood-tinged sputum but has not had any since. Objective Data Objective Data Vital Signs: Vital Signs Temp Pulse Resp BP Pulse Ox O2 Del Method 98.9 F 89 18 160/69 H 96 Room Air 10/22/23 06:53 10/22/23 05:00 10/22/23 05:21 10/22/23 05:00 10/22/23 07:21 10/22/23 07:21 Oxygen Delivery Method Room Air Weight: 71.6 kg Body Mass Index (BMI) 23.3 Intake & Output: Intake and Output for Last 24 Hours 10/20/23 10/21/23 10/22/23 23:59 23:59 23:59 Intake Total 1050 / 1100 455 / 455 Output Total 400 / 400 Balance 1050 / 1100 55 / 55 Lab / Micro Data 10/22/23 06:28 10/22/23 06:28 Labs: Laboratory Results - last 24 hr 10/21/23 20:25: Urine Color Yellow, Urine Clarity Sl. Cloudy, Urine pH 6.0, Ur Specific [place] 1.015, Urine Protein 500 H, Urine Glucose (UA) Normal, Urine Ketones Negative, Urine Occult Blood 25 H, Urine Nitrite Negative, Urine Bilirubin Negative, Urine Urobilinogen Normal, Ur Leukocyte Esterase Negative, Urine RBC 0-5 SEEN, Urine WBC 0-5 SEEN, Ur Squamous Epith Cells 0-5 SEEN, Amorphous Sediment 2+ URATE, Urine Bacteria RARE, Urine Mucus 0 SEEN, Urine Osmolality 415, Urine Opiates Screen NEGATIVE, Urine Methadone Screen NEGATIVE, Ur Barbiturates Screen NEGATIVE, Ur Phencyclidine Scrn NEGATIVE, Ur Amphetamines Screen NEGATIVE, MDMA (Ecstasy) Screen NEGATIVE, U Benzodiazepines Scrn NEGATIVE, Urine Cocaine Screen NEGATIVE, U Cannabinoids Screen NEGATIVE, Ur Drug Screen Comment 10/21/23 21:08: WBC 14.1 H, RBC 4.18 L, Hgb 11.9 L, Hct 36.6 L, MCV 87.6, MCH 28.5, MCHC 32.5, RDW Std Deviation 41.7, RDW Coeff of Natalee 13.0, Plt Count 206, MPV 11.8, Immature Gran % (Auto) 0.400, Neut % (Auto) 87.8 H, Lymph % (Auto) 4.2 L, [place] % (Auto) 7.5, Eos % (Auto) 0.0, Baso % (Auto) 0.1, Absolute Neuts (auto) 12.3 H, Absolute Lymphs (auto) 0.59 L, Nucleated RBC % 0, Differential Comment SEE COMMENT, Platelet Estimate ADEQUATE, RBC Morphology N CHROM, Anisocytosis RARE, PT 15.2 H, INR 1.2, APTT 39.0 H, Sodium 129 L, Potassium 4.3, Chloride 96 L, Carbon Dioxide 25.0, Anion Gap 8, BUN 29 H, Creatinine 2.06 H, Estim Creat Clear Calc 33.37, Est GFR (MDRD) Af Amer 41 L, Est GFR (MDRD) Non-Af 34 L, BUN/Creatinine Ratio 14.1, Glucose 240 H, Hemoglobin A1c 8.1 H, Lactic Acid 1.8, Calcium 8.6, Total Bilirubin 0.50, AST 79 H, ALT 55, Alkaline Phosphatase 105, T otal Protein 8.5 H, Albumin 2.5 L, Globulin 6.0 H, Albumin/Globulin Ratio 0.4 L, Prealbumin 7.6 L, Folate 30.00, TSH 3.03 10/21/23 23:56: Serum Osmolality 291, Vitamin B12 478, Ethyl Alcohol 3.0 10/22/23 06:28: WBC 12.5 H, RBC 3.83 L, Hgb 10.7 L, Hct 33.0 L, MCV 86.2, MCH 27.9, MCHC 32.4, RDW Std Deviation 40.4, RDW Coeff of Natalee 12.9, Plt Count 181, M PV 12.1 H, Immature Gran % (Auto) 0.600, Neut % (Auto) 88.9 H, Lymph % (Auto) 3.0 L, [place] % (Auto) 7.3, Eos % (Auto) 0.0, Baso % (Auto) 0.2, Absolute Neuts (auto) 11.1 H, Absolute Lymphs (auto) 0.37 L, Nucleated RBC % 0 10/22/23 06:47: POC Glucose 185 H Micro: Microbiology 10/21/23 20:25 Urine, Clean Catch Legionella Antigen - Final 10/21/23 20:25 Urine, Clean Catch Streptococcus pneumoniae Antigen (M - Final 10/21/23 20:56 Mucosa - Nasopharyngeal SARS-CoV-2, Influenza & RSV (PCR) - Final Radiography Diagnostic Testing: Radiology Impression Brain CT 10/21/23 20:32 IMPRESSION: Chronic involutional changes of the brain. 5 mm round mass within the third ventricle and correlation with MRI with contrast recommended. Electronically Signed: Quintin Padilla MD at 21:04 EDT Reading Location ID and State: [id number] / [employer] Tel , Service support , Chest X-Ray 10/21/23 20:50 IMPRESSION: Left lower lobe pneumonia. 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 technician at bedside, patient appears comfortable, does not appear toxic, very pleasant, appears younger than stated age, patient does appear to be chilling as he is wrapped in multiple blankets HEENT head/scalp atraumatic and moist oral mucous membranes HEENT Narrative: Mallampati is 2, no thrush Eyes PERRL, EOMs intact bilaterally and conjunctivae normal Eyes Narrative: No scleral icterus Neck no lymphadenopathy and supple Neck Narrative: Trachea midline, no thyroid enlargement Resp normal respiratory effort, no retractions, no use of accessory muscles and clear to auscultation bilaterally Auscultation: Negative for rales, rhonchi or wheezes Cardio regular rate, regular rhythm, S1 normal heart sound, S2 normal heart sound, no murmurs, no rub, no gallops and no clicks GI normal to inspection, nondistended, normoactive bowel sounds, soft to palpation and non-tender Extremity no clubbing, cyanosis or edema Extremity Narrative: Pedal pulses are 2+ Neuro oriented x3, moves all extremities and no focal motor deficits Speech: speech normal Psych affect normal Psych Narrative: Very pleasant, interacts appropriately Assessment & Plan Assessment/Plan (1) Generalized weakness: (2) Mass of brain: (3) Confusion: (4) Fever: QUALIFIERS: Fever type: due to other condition Qualified Code(s): R50.81 - Fever presenting with conditions classified elsewhere (5) Elevated serum creatinine: (6) Hyponatremia: (7) Dehydration: (8) Toxic metabolic encephalopathy: PLAN: Plan Fever -Chest x-ray was suggestive of left lower lobe pneumonia per radiology read however I did not appreciate this specifically on my review and it does not sound like the patient has been producing any sputum or having any significant cough -Blood and urine cultures are pending -UA was not suggestive of infection -Check procalcitonin -Add on sputum culture if patient can produce -Continue azithromycin and ceftriaxone -Will likely be able to discontinue azithromycin soon as Legionella was negative -Tmax in the last 24 hours was 102 degrees Leukocytosis -White count was greater than 14,000 on admission with a significant left shift -Trended down today but still elevated -See above workup -Repeat CBC in a.m. Acute right 9 mm lacunar infarct of the right [place]ez radiata -Aspirin 81 mg daily -Continue home atorvastatin -Check lipid panel -Check hemoglobin A1c -Check echocardiogram -Check NIH's -Carotid Dopplers -MRA brain -Continue to address vascular risk modifications -Neuro has been consulted and they had no significant changes from the already made plan Toxic/metabolic encephalopathy -Likely related to the above -Patient is now alert and oriented x 3 seems to be resolved -CT was unremarkable for any acute findings that would cause this etiology -Continue to monitor clinically Elevated serum creatinine secondary to suspected dehydration -Baseline is unknown -It was 1.7 when he was here to 48 hours prior to this presentation and greater than 2 on admission -Continue IV fluids with normal saline at 70 cc/h for now -Avoid nephrotoxins as able -Hold home lisinopril with elevated serum creatinine -Awaiting a.m. lab Hyponatremia -Appears to be related to hypovolemic hyponatremia baseline serum and urine osmolality No urine sodium obtained -Continue to monitor--> I do not believe we need any further workup at this time -Also could be related to pneumonia if actually present -AM labs pending Generalized weakness/debility -Suspect related to the above infection -PT/OT consultation -Case management/social work consulted for assistance with discharge planning Third ventricle mass -[address] -MRI shows an 8 mm lesion within or adjacent to the right side of the third ventricle which was indicative of ependymoma, subependymoma or central neuro cytoma, choroid plexus papilloma or intraventricular meningioma -Neuro has been consulted await input -Etiology and significance unclear Essential hypertension -Continue metoprolol -Lisinopril on hold due to renal dysfunction -As needed hydralazine for systolic blood pressure greater than 160 Hyperlipidemia -Continue home atorvastatin DM-2 -Uncontrolled with a hemoglobin A1c of 8.1 -Hold home oral agents given elevated serum creatinine -SSI -Cardiac/carb controlled diet -Accu-Cheks as ordered -May need to add basal insulin depending on fasting blood sugars DVT prophylaxis -Continue subcu heparin twice daily CODE STATUS -Full code is verified today Charges/Coding Visit Charges Inpatient E&M: 53702 Subs Hosp L3
[2023-10-22 08:29] LABS: Lactic Acid 1.1 mmol/L (0.4-1.9)
--- NOTE | 2023-10-22 08:30 | MRI_ITS ---
We are attempting to reach an attending provider to discuss findings. An addendum with communication details will be sent when the communication is complete. EXAM: MR HEAD WITHOUT AND WITH INTRAVENOUS CONTRAST CLINICAL INDICATION: 5 mm mass in third ventricle on head CT. TECHNIQUE: Multiplanar and multisequence MR images of the brain were obtained without and with intravenous contrast. CONTRAST: IV 14 CC CLARISCAN COMPARISON: No relevant prior studies available. FINDINGS: BRAIN AND EXTRA-AXIAL SPACES: 9 mm focus of restricted diffusion noted along the right cortez radiata suggestive of acute lacunar infarct. Chronic lacunar infarcts are seen within the thalami bilaterally. Diffuse periventricular white matter changes also consistent with chronic microvascular change. Prominence of the cortical sulci and ventricles related to volume loss change. 8 mm partially calcified nonenhancing mass lesion noted along the right side of the third ventricle which may represent an ependymoma, subependymoma, central neurocytoma, choroid plexus papilloma or intraventricular meningioma. SELLA: Normal. Normal sella turcica, pituitary gland, infundibular stalk, optic chiasm and hypothalamus. AUDITORY SYSTEM: Normal. The internal auditory canals are patent. BONES/JOINTS: Intact calvarium. SINUSES: Prominent mucosal thickening within the right maxillary sinus. MASTOID AIR CELLS: Unremarkable as visualized. Clear. ORBITS: Unremarkable as visualized. Both globes, extraocular muscles, optic nerves and retrobulbar fat appear unremarkable. VASCULATURE: Unremarkable as visualized. Normal flow voids in the major intracranial circulation. MRI/Brain W/WO Contrast IMPRESSION: 1. Acute right 9 mm lacunar type infarct involving the right cortez radiata. 2. 8mm lesion within or adjacent to the right side of third ventricle which may represent, an ependymoma, subependymoma, central neurocytoma, choroid plexus papilloma or intraventricular meningioma. Electronically Signed: Blair Hinojosa MD at 10:30 EDT ,
[2023-10-22 08:33] LABS: ALB/GLOB Ratio 0.4 RATIO (0.9-2.4); AST(SGOT) 59 U/L (15-37); Alanine Aminotransfer ALT/SGPT 39 U/L (16-61); Albumin, Serum 1.9 g/dL (3.2-5.0); Alkaline Phosphatase 89 U/L (45-117); Anion Gap 9 (5-15); BUN 25 mg/dL (7-18); BUN/Creat Ratio 14.7 RATIO (10-20); Calcium,Total 8.2 mg/dL (8.5-10.1); Chloride 101 mmol/L (98-107); EST Glomerular Filtration Rate 43 mL/min (>60); Est Glom Filt Rate - Afr Amer 51 mL/min (>60); Estimated Creatinine Clearance 40.43 ml/min; Globulin 4.9 g/dL (2.2-4.2); Glucose 184 mg/dL (74-106); Magnesium 2.1 mg/dL (1.6-2.6); Protein, Total 6.8 g/dL (6.4-8.2); Sodium Level 130 mmol/L (136-145)
[2023-10-22] MEDS: Aspirin 81 MG TAB.CHEW PO (09:28)
[2023-10-22] MEDS: Lactobacillis Acidophilus 2 CAP PO ×2 (09:29→21:37)
[2023-10-22] MEDS: Ascorbic Acid 500 MG Tablet 1000 MG PO (09:29)
[2023-10-22] MEDS: Metoprolol(XL)Succ 50 MG Tablet PO (09:29)
[2023-10-22] MEDS: Multivitamins,Therapeutic Tablet 1 TABLET PO (09:29)
[2023-10-22] MEDS: Heparin Injection (Vial) 5,000 UNIT/ML VIAL 5000 UNIT SC ×2 (09:29→21:37)
[2023-10-22] MEDS: Cholecalciferol (VIT D3) 25 MCG TABLET (1,000 UNITS) PO (09:30)
[2023-10-22] MEDS: Sodium Phosphate/Na Biphos 21 MMOL in 0.9% Normal Saline (250mL Bag) 250 ML 84 MMOL IV (10:14)
--- NOTE | 2023-10-22 10:57 | ECHOD_ITS ---
Reason For Study: TIA/STROKE Procedure This was a 2D Doppler, Color Flow transthoracic echocardiogram. Exam performed portable in patient room. Left Ventricle Normal LV size. The estimated ejection fraction is 60 %. No evidence for diastolic dysfunction. No regional wall motion abnormalities noted. Right Ventricle Normal RV size. Normal systolic function. Atria The left atrium is mildly enlarged. Normal right atrium. Normal atrial septum. Bubble contrast study negative for right to left interatrial shunt. Mitral Valve There is no mitral valve stenosis. Trivial mitral valve insufficiency. Tricuspid Valve There is no tricuspid stenosis. Trivial tricuspid valve insufficiency. Unable to estimate RV systolic pressure due to insufficient tricuspid regurgitant envelope. Aortic Valve Trisinus/trileaflet aortic valve. Aortic sclerosis, no stenosis. There is no aortic stenosis. No aortic valve insufficiency. Pulmonic Valve There is no pulmonic valvular stenosis. Trivial pulmonic valve insufficiency. Great Vessels Normal aortic root. Pericardium/Pleural No pericardial effusion. Medication Performed a rapid injection of agitated mix of 9 cc saline and 1cc air to assess for atrial septal defect. MMode/2D Measurements & Calculations LVIDd: 4.8 cm IVSd: 1.4 cm Ao root diam: 3.5 cm LVIDs: 4.0 cm LVPWd: 1.3 cm RVDd: 3.8 cm FS: 17.1 % LAV(MOD-bp): 64.0 ml LVAd ap2: 31.9 cm2 SV(MOD-sp2): 57.6 ml LAV(MOD-bp) Indexed: 33.3 ml/m2 LVLd ap2: 8.1 cm LAV(MOD-sp2): 68.1 ml EDV(MOD-sp2): 104.5 ml LAV(MOD-sp4): 60.1 ml EDV(sp2-el): 106.6 ml LVAs ap2: 20.4 cm2 LVLs ap2: 7.7 cm ESV(MOD-sp2): 46.9 ml ESV(sp2-el): 45.9 ml EF(MOD-sp2): 55.1 % LA A4 area: 19.5 cm2 LA dimension(2D): 4.3 cm RA A4 area: 12.3 cm2 TAPSE: 0.88 cm Time Measurements MV dec time: 0.21 sec Doppler Measurements & Calculations MV E max keith: 92.5 cm/sec Lat Peak E' Keith: 14.0 cm/sec Med Peak E' Keith: 8.2 cm/sec MV A max keith: 93.4 cm/sec E/E' lat: 6.6 E/E' med: 11.3 MV E/A: 0.99 MV V2 max: 91.8 cm/sec Ao V2 max: 142.9 cm/sec MV max P.4 mmHg MV dec slope: 475.2 cm/sec2 Ao max P.2 mmHg MV V2 mean: 64.2 cm/sec Ao V2 mean: 104.7 cm/sec MV mean P.8 mmHg Ao mean P.0 mmHg MV V2 VTI: 30.4 cm Ao V2 VTI: 25.5 cm AV (velocity ratio): 0.83 LV V1 max: 120.2 cm/sec PA V2 max: 92.5 cm/sec PI end-d keith: 120.8 cm/sec LV V1 max P.8 mmHg PA V2 mean: 67.9 cm/sec LV V1 mean P.4 mmHg LV V1 mean: 86.3 cm/sec LV V1 VTI: 21.1 cm ECHO/Echo Complete Interpretation Summary The estimated ejection fraction is 60 %. No evidence for diastolic dysfunction. The left atrium is mildly enlarged. Trivial mitral valve insufficiency. Ordering Physician: Sheri Montenegro Referring Physician: RICHAR RAINES Performed By: Lorin Chicas RCS
--- NOTE | 2023-10-22 10:57 | CDU_ITS ---
Reason For Study: HX Stroke Rt. Velocities/BP Lt. Velocities/BP Prox CCA 81.0/10.8 cm/sec. Prox CCA 113.9/15.1 cm/sec. Mid CCA 107.3/21.7 cm/sec. Mid CCA 164.4/21.7 cm/sec. Dist CCA 153.4/30.5 cm/sec. Dist CCA 135.9/8.6 cm/sec. Prox ICA 107.3/17.3 cm/sec. Prox ICA 118.3/17.3 cm/sec. Mid ICA 133.8/22.8 cm/sec. Mid ICA 76.6/15.1 cm/sec. Dist ICA 83.2/17.3 cm/sec. Dist ICA 100.8/21.7 cm/sec. Rt. ICA/CCA = 1.2. Lt. ICA/CCA = 0.50. Prox ECA 140.3/4.2 cm/sec. Prox ECA 131.5/4.2 cm/sec. Rt. Vert. 63.4/10.8 cm/sec. Lt. Vert. 72.2/17.3 cm/sec. Right Extracranial There is heterogeneous, irregular atherosclerotic plaque noted in the right common carotid artery. There is heterogeneous, irregular atherosclerotic plaque noted in the right internal carotid artery. The distal right internal carotid artery is not well visualized. There is heterogeneous, irregular atherosclerotic plaque noted in the right external carotid artery. Antegrade flow is noted in the right vertebral artery. Left Extracranial There is heterogeneous, irregular atherosclerotic plaque noted in the left common carotid artery. There is heterogeneous, irregular atherosclerotic plaque noted in the left internal carotid artery. The distal left internal carotid artery is not well visualized. There is homogeneous, smooth atherosclerotic plaque noted in the left external carotid artery. Antegrade flow is noted in the left vertebral artery. Procedure Carotid Duplex [id number]. This is a Carotid Duplex examination using B-mode, color flow and specral Doppler. The exam was diagnostic. The study was technically difficult. Exam performed in department. VL/Carotid Duplex Ultrasound Interpretation Summary Moderate (50-69%) stenosis right extracranial internal carotid. Mild (<50%) stenosis left extracranial internal carotid. Patent and antegrade vertebrals bilaterally. Ordering Physician: Sheri Montenegro Referring Physician: Sivan Henderson Performed By: Ezequiel Ramirez RVT
--- NOTE | 2023-10-22 11:23 | CASEMGMT ---
KAYY NAVARRO Assessment Face to Face with patient for initial transition planning/care coordination assessment. KAYY NAVARRO introduced self and role at [facility], pt voices understanding. Pt is A&Ox4 and is resting comfortably in bed and is calm. Pt is being transferred to PCU soon in regard to possible stroke. Pt was able to answer all of this KAYY NAVARRO questions appropriately. Care providers, pharmacy, and demographics verified. Admitting dx: Pneumonia PCP: Sivan Henderson Specialists: Denies Preferred Pharmacy: [facility] Insurance: [facility] Prescription Benefit: Yes LNOK: Byron Ponce Living Arrangements: Pt lives with his in a single story home with 2 steps to enter ADLs/IADLs: States ind Transportation: Self, DME: Working [employer] and supplies, BP Cuff, Pulse Ox. Pt is 98% on RA currently. Denies other DME uses at this time HHC/SNF: Denies history Pt?s goal: Return to PLOF Plan: TBD. PT/OT pending. 6-Click is 14. CM/SW to follow in regard to safe DC from [facility]. Hiram Canada RN, CM
--- NOTE | 2023-10-22 14:25 | ST.MBS ---
Modified Barium Swallow Patient Information Study Date: 10/22/23 Study Time: 13:30 Direct Billable Minutes: 62 Total Minutes procedure & reportin Diagnosis: Mass of Brain G93.89; PNA J18.9 Referring Physician: Sheri Montenegro Reason for Referral: Objectively assess swallow function, assess risk for aspiration, and determine recommendations for least restrictive diet textures and compensatory strategies to improve safety of swallow. Medical History: PMH: HTN, Hearing Deficit, DM type 2, HLD. He had recent evaluation in our ER for fever, diarrhea, and altered mental status with suspicion for possible adverse drug reaction to metformin on October 19, 2023. He re-presented to [facility] ER 10/21/23 with fever and confusion. According to his the patient's symptoms began approximately 4 to 5 days prior to admission with intermittent fevers up to 102 ?F for the past 2 days that she treated with oral Tylenol. The patient also admitted to increased urination and intermittent urinary incontinence. His was concerned because he was not acting like himself. provided much of his history. In the ER, he was noted to have radiographic evidence of a Left lower lobe infiltrate consistent with suspected community-acquired pneumonia with laboratory evidence of leukocytosis of 14.1. He also had clinical evidence of respiratory insufficiency and mild dehydration. There was also concern for protein-calorie malnutrition compounded by acute metabolic encephalopathy and generalized weakness with ambulatory dysfunction. CT evidence of a ~5 mm round mass in his third ventricle. He was admitted to PCU for medical care. Brain MRI 10/22/23 IMPRESSION: 1. Acute right 9 mm lacunar type infarct involving the right cortez radiata. 2. 8mm lesion within or adjacent to the right side of third ventricle which may represent, an ependymoma, subependymoma, central neurocytoma, choroid plexus papilloma or intraventricular meningioma. Current Diet Ordered: Regular textures / Thin liquids Dentition: Natural Teeth and Missing Teeth Mental Status: Impaired (Toxic metabolic encephalopathy) Respiratory Status: Oxygenating on Room Air Penetration-Aspiration Scale Penetration-Aspiration Scale: OBJECTIVE ASSESSMENT OF SWALLOW FUNCTION (QUANTITATIVE ? PER TRIAL): PENETRATION / ASPIRATION SCALE (BARFIELD): 1 = does not enter airway 2 = enters airway/above vocal folds/ejected 3 = enters airway/above vocal folds/not ejected 4 = enters airway/contacts vocal folds/ejected 5 = enters airway/contacts vocal folds/not ejected 6 = enters airway/below vocal folds/ejected 7 = enters airway/below vocal folds/not ejected despite effort 8 = enters airway/below vocal folds/no effort VIDEOFLOROSCOPIC SCALE SCORE (BARFIELD): Grade I = aspiration of material that has penetrated into the laryngeal vestibule, intact cough reflex Grade II = aspiration < 10 % of the bolus, intact cough reflex Grade III = aspiration of < 10 % of the bolus, reduced cough reflex or aspiration of > 10 % of the bolus, intact cough reflex Grade IV = aspiration of > 10 % of the bolus, reduced cough reflex Penetration-Aspiration Scale Score Thin Liquid via teaspoon: Result: 1= does not enter airway Thin Liquid via teaspoon Trial 2: Result: 1= does not enter airway Thin Liquid via large single sip: cup: Result: 1= does not enter airway Thin Liquid via sequential sips: cup: Result: 1= does not enter airway Comment: Patient became short of breath and INCLINOMETER TESTER monitored SpO2 the remainder of the evaluation, which remained mid 90s. [place] Thick Liquid via small single sip: cup: Result: 1= does not enter airway Pudding via teaspoon: Result: 1= does not enter airway Comment: Esophageal screen - Complete clearance. 06/03 Cookie: Result: 1= does not enter airway Comment: Esophageal screen - Mild retention of cookie in the mid-lower esophagus. Thin Liquid via single sip: straw: Result: 1= does not enter airway Oral Phase Labial Seal: Escape beyond interlabial space; no extension beyond mitra border Tongue Control During Bolus Hold: Escape to lateral buccal cavity/floor of mouth Bolus Preparation/Mastication: Slow prolonged chewing/mashing with complete recollection Bolus Transport/Lingual Motion: Delayed initiation of tongue motion Pharyngeal Phase Initiation of Pharyngeal Swallow: Bolus head in valleculae Soft Palate Elevation: No bolus between soft palate and pharyngeal wall Laryngeal Elevation: Comp. Superior move thyroid cart w/comp. apprx arytenoid cart-epig pet Anterior Hyoid Excursion: Partial anterior movement Epiglottic Movement: Partial inversion (inconsistent) Laryngeal Vestibule Closure at Height of Swallow: Complete; no air/contrast in laryngeal vestibule Pharyngeal Stripping Wave: Present - complete Pharyngoesophageal Segment Opening: Parital distension and partial duration; parital obstruction of flow Tongue Base Retraction: Narrow column of contrast between tongue base & post. pharyngeal wall Pharyngeal Residue: Collection of residue within or on pharyngeal structures Esophageal Phase Esophageal Clearance: Esophageal retention w/ retrograde flow through pharyngoesophageal seg Diagnosis/Impression Diagnosis: Mild oropharyngeal dysphagia R13.12 Impression: The oral phase was primarily marked by... -Loss of portion of liquid bolus to FOM; otherwise, good bolus control. -Delayed initiation of tongue motion. -Prolonged, but complete mastication with the patient easily fatiguing from both eating and drinking. The pharyngeal phase was primarily marked by... -Mildy decreased tongue base retraction resulting in mild pharyngeal residue after the swallow. -Decreased anterior hyoid excursion and inconsistent epiglottic inversion; however, he maintained good airway closure during the swallow with no laryngeal penetration or aspiration observed. The esophageal phase was primarily marked by... -Mild retention of cookie in the mid-lower esophagus. -Small, pouch-like collection of barium at the level of C6-C-7. INCLINOMETER TESTER to review this finding, as well as the bony anterior protrusions observed on C5 and C6, with radiologist, Dr. Larsen, on 10/26/23. Figure 1. Retention of thin liquids via straw in pouch-like collection in the upper esophagus with retrograde flow to the pyriforms after the swallow was complete. Recommendations Diet: Regular Textures (Easy to Chew Textures - IDDSI Level 7 ) and Thin Liquids Compensatory Strategies: Small Bites, Small Sips, Slow Rate, Sitting upright and Remain sitting upright for 30 minutes after PO intake Supervision: Assist as needed (Assist feeding as needed d/t the patient becoming easily overexerted) Recommend Repeat Modified Barium Swallow: No Need for Skilled Speech Therapy Services: Yes Comment: -Train the patient in use of strategies to decrease risk for aspiration. -Train the patient in oropharyngeal exercise program to improve tongue base retraction and anterior hyoid excursion (Deysi Pollack). Recommended Referrals: Dietitian Consult (INCLINOMETER TESTER spoke with ceramic restorerPhuong, and expressed concerns for the patient consuming adequate nutrition/hydration because he fatigues so easily when eating and drinking.) Education Completed: 1. Described result of evaluation., 2. Pt understands evaluation & agrees with goals and treatment plan. and 7. Pt requires further education on strategies & risks. Status Active ST Patient: Active Contact Information [facility] Speech Therapy:: Denisse Kiran M.A. [facility]-INCLINOMETER TESTER? Speech-Language Pathologist?? [place] [address] [address]?? [place] [address]?? [email or web address]?? [phone]
--- NOTE | 2023-10-22 14:29 | NEURO.CONS ---
Assessment and Plan: Neuro Assessment/Plan RIAN RODRIGUEZ is a 68 M with a past medical history of HTN, DM and HLD , being evaluated by Teleneurology for acute stroke Diagnosis: acute lacunar ischemic stroke likely due small vessel disease Plan: vessel images MRA head and neck TTE Hba1c, Lipid Panel ASA 81 mg daily Lipitor 40 mg vascular risk modification HPI Consult Data Date of Consult: 10/22/23 HPI Narrative HPI Narrative: This is a 68 M with a past medical history of essential hypertension, hyperlipidemia, DM-2; presnted with fever, diarrhea and confusion, he was diagnosed with pneumonia. work up included MRI of the brain that showed acute right lacunar ishemic stroke [facility] Medical History HTN (hypertension) Hearing deficit Type 2 diabetes mellitus Home Medications ?Medication ?Instructions ?Recorded ?Last Taken ?Type ascorbic acid (vitamin C) 1,000 mg 1,000 mg PO DAILY 10/21/23 Unknown History tablet,extended release (C Complex) aspirin 81 mg chewable tablet 1 tab PO DAILY 10/21/23 Unknown History (Aspirin Childrens) atorvastatin 40 mg tablet 40 mg PO QHS 10/21/23 Unknown History cholecalciferol (vitamin D3) 25 25 mcg PO DAILY 10/21/23 Unknown History mcg (1,000 unit) capsule (Vitamin D3) garlic 100 mg tablet 100 mg PO DAILY 10/21/23 Unknown History lisinopril 40 mg tablet 40 mg PO DAILY 10/21/23 Unknown History metformin 500 mg tablet 500 mg PO BID 10/21/23 Unknown History metoprolol succinate 50 mg 50 mg PO DAILY 10/21/23 Unknown History tablet,extended release 24 hr multivitamin (Daily Multi-Vitamin 1 tab PO DAILY 10/21/23 Unknown History tablet) omega-3 fatty acids 500 mg PO DAILY 10/21/23 Unknown History vitamin B12 500 mcg-folic acid 400 1 tab PO DAILY 10/21/23 Unknown History mcg tablet Allergy/AdvReac Type Severity Reaction Status Date / Time No Known Allergies Allergy Verified 10/21/23 20:09 Social History Smoking Status: Never smoker Vital Signs Vital Signs Vital Signs: 10/21/23 20:07 10/21/23 20:09 10/21/23 21:09 Temperature 98.8 F 98.8 F 98.2 F Temperature Source Temporal Temporal Temporal Pulse Rate 84 84 84 Respiratory Rate 16 16 18 Respiratory Effort Respiratory Depth Respiratory Pattern Blood Pressure 144/63 H 144/63 H 184/84 H Blood Pressure Mean 90 90 117 Blood Pressure Source Blood Pressure Position Blood Pressure Location Pulse Ox 97 94 100 Oxygen Delivery Method Room Air Room Air Room Air 10/21/23 21:15 10/21/23 22:00 10/21/23 22:06 Temperature 98.5 F Temperature Source Temporal Pulse Rate 79 Respiratory Rate 16 Respiratory Effort Respiratory Depth Respiratory Pattern Blood Pressure 133/63 H 133/63 H Blood Pressure Mean 86 86 Blood Pressure Source Blood Pressure Position Blood Pressure Location Pulse Ox 96 Oxygen Delivery Method Room Air Room Air 10/21/23 22:30 10/21/23 23:00 10/21/23 23:21 Temperature 98.5 F 97.6 F L Temperature Source Temporal Pulse Rate 80 73 Respiratory Rate 16 26 H 15 Respiratory Effort Normal Non-Labored Respiratory Depth Normal Respiratory Pattern Normal Blood Pressure 144/65 H 135/67 H Blood Pressure Mean 91 89 Blood Pressure Source Blood Pressure Position Blood Pressure Location Pulse Ox 95 95 Oxygen Delivery Method Room Air Room Air 10/21/23 23:38 10/22/23 05:00 10/22/23 05:00 Temperature 98.5 F 102 F H 102 F H Temperature Source Temporal Temporal Temporal Pulse Rate 72 86 89 Respiratory Rate 17 15 16 Respiratory Effort Respiratory Depth Respiratory Pattern Blood Pressure 124/65 H 160/69 H 160/69 H Blood Pressure Mean 84 99 99 Blood Pressure Source Monitor Monitor Blood Pressure Position Semi-Fowlers Semi-Fowlers Blood Pressure Location Right Arm Right Arm Pulse Ox 96 99 98 Oxygen Delivery Method Room Air Room Air Room Air 10/22/23 05:21 10/22/23 06:53 10/22/23 07:21 Temperature 98.9 F Temperature Source Temporal Pulse Rate Respiratory Rate 18 Respiratory Effort Non-Labored Respiratory Depth Normal Respiratory Pattern Normal Blood Pressure Blood Pressure Mean Blood Pressure Source Blood Pressure Position Blood Pressure Location Pulse Ox 94 96 Oxygen Delivery Method Room Air Room Air 10/22/23 08:11 10/22/23 08:11 10/22/23 09:29 Temperature 98.9 F Temperature Source Oral Pulse Rate 72 72 Respiratory Rate 16 Respiratory Effort Normal Non-Labored Respiratory Depth Normal Respiratory Pattern Normal Blood Pressure 139/64 H 139/64 H Blood Pressure Mean 89 Blood Pressure Source Monitor Blood Pressure Position Sitting Blood Pressure Location Right Arm Pulse Ox 98 Oxygen Delivery Method Room Air Room Air 10/22/23 12:05 Temperature 99.1 F Temperature Source Temporal Pulse Rate 59 L Respiratory Rate 18 Respiratory Effort Respiratory Depth Respiratory Pattern Blood Pressure 142/92 H Blood Pressure Mean 108 Blood Pressure Source Monitor Blood Pressure Position Supine Blood Pressure Location Left Arm Pulse Ox 98 Oxygen Delivery Method Room Air Weight Weight: 71.6 kg Body Mass Index (BMI) 23.3 EEG Results Procedure Details EEG Procedure Details: RIAN RODRIGUEZ is a 68 year old M with a past medical history of , who presents for evaluation of Electroencephalogram on DATE at TIME NIHSS NIHSS Nursing Documentation NIHSS Nursing Documentation: NIHSS: Ischemic Stroke/TIA Start: 10/22/23 11:20 Text: For PCU Patients: NIH and Neuro Check every 4 Status: Active hours, PRN and with change in RN caregiver. Freq: [id number] Protocol: Activity Type Activity Date Activity User E-sign Co-sign Detail Recorded Client Recorded Date Recorded By Document 10/22/23 12:22 TK desktop 10/22/23 12:24 TK 10/22/23 12:22 NIH Stroke Scale [NIHSS] A score of 0 is normal or asymptomatic . Total possible score is 42. Inpatient: RN or Physician to activate a stroke alert for onset of new stroke symptoms or with NIHSS increase >/= 3 points. Following change in neurological status, NIHSS will be performed per physician order or more frequently PRN. -1a. Level of Consciousness Alert; keenly responsive -1b. LOC Questions Answers BOTH questions correctly. -1c. LOC Commands Performs both tasks correctly . -2. Best Gaze Partial gaze palsy; -3. Visual No visual loss -4. Facial Palsy Normal symmetrical movements -5a. Left Arm No drift; arm holds 90 (or 45 ) degrees for full 10 seconds -5b. Right Arm No drift; arm holds 90 (or 45 ) degrees for full 10 seconds -6a. Left Leg No drift; leg holds 30-degree position for full 5 seconds -6b. Right Leg No drift; leg holds 30-degree position for full 5 seconds -7. Limb Ataxia Absent -8. Sensory Normal; no sensory loss -9. Best Language Mild-to- moderate aphasia; -10. Dysarthria Mild-to- moderate dysarthria; -11. Extinction and Inattention No abnormality -Total 3 Query Text:A score of 0 is normal or asymptomatic. Total possible score is 42 . ED: Notify Physician for NIHSS increase by > / = 3 points. Inpatient: RN or Physician to activate a stroke alert for NIHSS increase of > / = 3 points. Coma Scale [Assess] -Eye Opening Spontaneous -Motor Obeys Commands -Verbal Oriented [Total] -Coma Scale Total 15 Physical Exam Neuro Neuro Narrative: awake alert oriented to self and place following simple commands, able to name, and repeat face symmetric move all ext with no drift Lab / Micro Data 10/22/23 06:28 10/22/23 06:28 Labs: Laboratory Results - last 24 hr 10/21/23 20:25: Urine Color Yellow, Urine Clarity Sl. Cloudy, Urine pH 6.0, Ur Specific [place] 1.015, Urine Protein 500 H, Urine Glucose (UA) Normal, Urine Ketones Negative, Urine Occult Blood 25 H, Urine Nitrite Negative, Urine Bilirubin Negative, Urine Urobilinogen Normal, Ur Leukocyte Esterase Negative, Urine RBC 0-5 SEEN, Urine WBC 0-5 SEEN, Ur Squamous Epith Cells 0-5 SEEN, Amorphous Sediment 2+ URATE, Urine Bacteria RARE, Urine Mucus 0 SEEN, Urine Osmolality 415, Urine Opiates Screen NEGATIVE, Urine Methadone Screen NEGATIVE, Ur Barbiturates Screen NEGATIVE, Ur Phencyclidine Scrn NEGATIVE, Ur Amphetamines Screen NEGATIVE, MDMA (Ecstasy) Screen NEGATIVE, U Benzodiazepines Scrn NEGATIVE, Urine Cocaine Screen NEGATIVE, U Cannabinoids Screen NEGATIVE, Ur Drug Screen Comment 10/21/23 21:08: WBC 14.1 H, RBC 4.18 L, Hgb 11.9 L, Hct 36.6 L, MCV 87.6, MCH 28.5, MCHC 32.5, RDW Std Deviation 41.7, RDW Coeff of Natalee 13.0, Plt Count 206, MPV 11.8, Immature Gran % (Auto) 0.400, Neut % (Auto) 87.8 H, Lymph % (Auto) 4.2 L, [place] % (Auto) 7.5, Eos % (Auto) 0.0, Baso % (Auto) 0.1, Absolute Neuts (auto) 12.3 H, Absolute Lymphs (auto) 0.59 L, Nucleated RBC % 0, Differential Comment SEE COMMENT, Platelet Estimate ADEQUATE, RBC Morphology N CHROM, Anisocytosis RARE, PT 15.2 H, INR 1.2, APTT 39.0 H, Sodium 129 L, Potassium 4.3, Chloride 96 L, Carbon Dioxide 25.0, Anion Gap 8, BUN 29 H, Creatinine 2.06 H, Estim Creat Clear Calc 33.37, Est GFR (MDRD) Af Amer 41 L, Est GFR (MDRD) Non-Af 34 L, BUN/Creatinine Ratio 14.1, Glucose 240 H, Hemoglobin A1c 8.1 H, Lactic Acid 1.8, Calcium 8.6, Total Bilirubin 0.50, AST 79 H, ALT 55, Alkaline Phosphatase 105, Total Protein 8.5 H, Albumin 2.5 L, Globulin 6.0 H, Albumin/Globulin Ratio 0.4 L, Prealbumin 7.6 L, Folate 30.00, TSH 3.03 10/21/23 23:56: Serum Osmolality 291, Vitamin B12 478, Ethyl Alcohol 3.0 10/22/23 06:28: WBC 12.5 H, RBC 3.83 L, Hgb 10.7 L, Hct 33.0 L, MCV 86.2, MCH 27.9, MCHC 32.4, RDW Std Deviation 40.4, RDW Coeff of Natalee 12.9, Plt Count 181, MPV 12.1 H, Immature Gran % (Auto) 0.600, Neut % (Auto) 88.9 H, Lymph % (Auto) 3.0 L, [place] % (Auto) 7.3, Eos % (Auto) 0.0, Baso % (Auto) 0.2, Absolute Neuts (auto) 11.1 H, Absolute Lymphs (auto) 0.37 L, Nucleated RBC % 0, Sodium 130 L, Potassium 4.0, Chloride 101, Carbon Dioxide 20.0 L, Anion Gap 9, BUN 25 H, Creatinine 1.70 H, Estim Creat Clear Calc 40.43, Est GFR (MDRD) Af Amer 51 L, Est GFR (MDRD) Non-Af 43 L, BUN/Creatinine Ratio 14.7, Glucose 184 H, Lactic Acid 1.1, Calcium 8.2 L, Phosphorus 2.0 L, Magnesium 2.1, Total Bilirubin 0.40, AST 59 H, ALT 39, Alkaline Phosphatase 89, Total Protein 6.8, Albumin 1.9 L, Globulin 4.9 H, Albumin/Globulin Ratio 0.4 L 10/22/23 06:47: POC Glucose 185 H Micro: Microbiology 10/21/23 20:25 Urine, Clean Catch Legionella Antigen - Final 10/21/23 20:25 Urine, Clean Catch Streptococcus pneumoniae Antigen (M - Final 10/21/23 20:56 Mucosa - Nasopharyngeal SARS-CoV-2, Influenza & RSV (PCR) - Final Imaging Radiology Impression Brain CT 10/21/23 20:32 IMPRESSION: Chronic involutional changes of the brain. 5 mm round mass within the third ventricle and correlation with MRI with contrast recommended. Electronically Signed: Quintin Padilla MD at 21:04 EDT , Chest X-Ray 10/21/23 20:50 IMPRESSION: Left lower lobe pneumonia. Electronically Signed: Quintin Padilla MD at 21:04 EDT , Brain MRI 10/22/23 08:30 IMPRESSION: 1. Acute right 9 mm lacunar type infarct involving the right cortez radiata. 2. 8mm lesion within or adjacent to the right side of third ventricle which may represent, an ependymoma, subependymoma, central neurocytoma, choroid plexus papilloma or intraventricular meningioma. Electronically Signed: Blair Hinojosa MD at 10:30 EDT , ADDENDUM: 10/22/23 1045 IMPRESSION: 1. Acute right 9 mm lacunar type infarct involving the right cortez radiata. 2. 8mm lesion within or adjacent to the right side of third ventricle which may represent, an ependymoma, subependymoma, central neurocytoma, choroid plexus papilloma or intraventricular meningioma. N.B. : The above Results were Read Back by Blair Hinojosa MD to Sheri Montenegro MD, and understanding confirmed on 10/22/2023 10:38:23 (ET). Electronically Signed: Blair Hinojosa MD at 10:30 EDT , Active Medications Active Medications Active Medications: Current Medications Generic Name Dose Route Start Last Admin Trade Name Freq PRN Reason Stop Dose Admin Acetaminophen 650 mg 10/21/23 23:21 10/22/23 05:30 Acetaminophen 325 Mg Tablet PO 650 mg Q6H PRN PRN Administration Pain 1-10 Or Fever>100.7 Albuterol Sulfate 2.5 mg 10/21/23 23:21 Albuterol 2.5 Mg/3 Ml Vial.Neb. INHALATION Q2H PRN PRN SOB &/OR WHEEZING Ascorbic Acid 1,000 mg 10/22/23 10:00 10/22/23 09:29 Ascorbic Acid 500 Mg Tablet PO 1,000 mg DAILY ANGIE Administration Aspirin 81 mg 10/22/23 08:00 10/22/23 09:28 Aspirin 81 Mg Tab.Chew PO 81 mg DAILYCM ANGIE Administration Atorvastatin Calcium 40 mg 10/22/23 22:00 Atorvastatin Calcium 40 Mg Tablet PO QHS ANGIE Cholecalciferol 25 mcg 10/22/23 10:00 10/22/23 09:30 Cholecalciferol (Vit D3) 25 Mcg Tablet (1,000 Units) PO 25 mcg DAILY ANGIE Administration Dextrose 0 gm 10/21/23 23:21 Dextrose 50%-Water 25 Gm/50 Ml Disp.Syrin IV X1 PRN HYPOGLYCEMIA Protocol Glucagon 1 mg 10/21/23 23:21 Glucagon 1 Mg/Ml Syringe IM X1 PRN HYPOGLYCEMIA Heparin Sodium (Porcine) 5,000 unit 10/22/23 10:00 10/22/23 09:29 Heparin Injection (Vial) 5,000 Unit/Ml Vial SC 5,000 unit Q12 ANGIE Administration Ceftriaxone Sodium 1 gm in 50 mls @ 100 mls/hr 10/22/23 22:00 Rocephin IV 2200 ANGIE Azithromycin 500 mg/ Dextrose 255 mls @ 250 mls/hr 10/22/23 22:00 IV 2200 ANGIE Sodium Chloride 1,000 mls @ 70 mls/hr 10/21/23 23:21 10/22/23 10:14 IV 0 mls/hr .[id number] ANGIE Infusion Sodium Chloride 250 mls @ 15 mls/hr 10/21/23 23:22 IV .[id number] PRN Additional IVPB Infusion Sodium Chloride 250 mls @ 15 mls/hr 10/21/23 23:22 IV .[id number] PRN Saline Flush Insulin Human Lispro 0 unit 10/22/23 07:00 10/22/23 12:04 Insulin Lispro 100 Unit/Ml Insuln.Pen SC Not Given ACHS ANGIE Protocol Melatonin 3 mg 10/21/23 23:21 Melatonin 3 Mg Tablet PO QHS PRN PRN INSOMNIA Metoprolol Succinate 50 mg 10/22/23 10:00 10/22/23 09:29 Metoprolol(Xl)Succ 50 Mg Tablet PO 50 mg DAILY ANGIE Administration Protocol Multivitamins 1 tablet 10/22/23 08:00 10/22/23 09:29 Multivitamins,Therapeutic Tablet PO 1 tablet DAILYCM ANGIE Administration Ondansetron HCl 4 mg 10/21/23 23:21 Ondansetron 4 Mg/2 Ml Vial IV Q8H PRN PRN NAUSEA/VOMITING Sodium Chloride 10 - 40 ml 10/21/23 23:22 0.9% Saline Lock 10 Ml Syringe IV UD PRN SALINE FLUSH
--- NOTE | 2023-10-22 15:18 | CHAPLAIN ---
Type of Pastoral Visit ___ Initial Visit ___ Follow-up Visit ___ On-call Visit ___ General Patient Visit ___ Spiritual Assessment ___ Family Conference ___ Bereavement ___ Rapid Response ___ Code Blue ___ Other (describe below) Pastoral Care Referral From ___ Patient ___ Family ___ Nurse ___ Physician ___ Merchandise Associate ___ Drivability Technician ___ Other (describe below) Sacrament/Intervention ___ Active listening ___ Anointing ___ Voodoo ___ Bereavement ___ Communion ___ Emily exploration ___ ___ Life review ___ Prayer ___ Reconciliation ___ Sacrament of Sick ___ Supportive presence ___ Wedding ___ Other (describe below) Pastoral Comments patient is asleep and did not respond to his name
--- NOTE | 2023-10-22 15:58 | CASEMGMT ---
Therapy mentioned patient would be a good Acute Rehab patient. SW went to talk with patient, but he was sleeping. SW attempted to call patient's , but she was unavailable. Per RN CM assessment it looks like patient's plan was to return home. JAZMINE and KAYY NAVARRO to follow. Carmen Mccain INSURANCE UNDERWRITER [employer]ACY
[2023-10-22] MEDS: Insulin Lispro 100 UNIT/ML INSULN.PEN SC ×2 (16:42→21:37)
[2023-10-22 18:03] LABS: Procalcitonin 1.09 ng/mL (0.00-0.09)
[2023-10-22 18:37] LABS: Bedside Glucose 212 mg/dL (74-106)
[2023-10-22] MEDS: Ceftriaxone 1 GM/50 ML BAG IV (21:33)
[2023-10-22] MEDS: Atorvastatin Calcium 40 MG Tablet PO (21:38)
[2023-10-22] MEDS: Azithromycin 500 MG in Dextrose 5%-Water (250mL Bag) 250 ML 250 MG IV (22:33)
[2023-10-23] VITALS (11 sets, daily range): BP systolic 125–155; BP diastolic 62–76; PULSE 70–78; RESP 16–18; TEMP 36.6–37.6; O2SAT 92–96; BMI 23.3; BMI 23.2
[2023-10-23 01:41] LABS: Bedside Glucose 177 mg/dL (74-106)
[2023-10-23 06:59] LABS: Bedside Glucose 142 mg/dL (74-106)
[2023-10-23 08:09] LABS: Absolute Lymphocyte Count 0.49 X10^3/uL (0.83-4.51); Absolute Neutrophil Count 9.4 X10^3/uL (2.0-7.7); Basophil# 0.02 X10^3/uL; Basophil% 0.2 % (0-1); Eosinophil# 0.05 X10^3/uL; Eosinophils% 0.5 % (0-5); Hematocrit 36.2 % (40-54); Hemoglobin 11.4 g/dL (13.0-16.5); Lymphocyte # 0.49 X10^3/ul (0.83-4.51); Lymphocyte % 4.4 % (19-41); Mean Corp Hgb Conc 31.5 g/dL (32-36); Mean Corpuscular Hgb 27.8 pg (27.0-32.0); Mean Corpuscular Volume 88.3 fL (80-94); Mean Platelet Vol. 12.2 fl (6.2-12.0); Monocyte# 0.98 X10^3/uL; Monocyte% 8.9 % (0-10); NRBC Flagged by Analyzer 0 % (0-5); Neutrophil # 9.44 X10^3/uL (2.7-7.7); Neutrophil % 85.4 % (47-70); POSITIVE DIFFERENTIAL YES; Platelet Count 205 K/mm3 (150-450); RBC Distribution Width CV 13.1 % (11.6-14.6); RBC Distribution Width SD 42.8 fl (35.1-43.9); White Blood Count 11.1 K/mm3 (4.4-11.0)
--- NOTE | 2023-10-23 09:00 | MRI_ITS ---
INDICATION: stroke EXAMINATION: MRA - MRA Head W/O Contrast TECHNIQUE: Routine kaibab of Mejia/brain 3D time of flight MR angiogram protocol was performed without gadolinium. 3D reconstructions were reviewed. IV Contrast Dosage and Agent: None. COMPARISON: None. FINDINGS: --Anterior Circulation: ICAs: No significant stenosis at the intracranial/visualized segments. ACAs: No significant stenosis at the visualized segments. ACOM: Present. MCAs: No significant stenosis at the visualized segments. --Posterior Circulation: PCOMs: Present bilaterally. music professor: No significant stenosis at the visualized segments. BASILAR ARTERY: No significant stenosis. VERTEBRAL ARTERIES: Right vertebral artery is quite small in size which may be developmental. No evidence of intracranial aneurysm or vascular malformation. Lesion involving the right side of the third ventricles again seen. MRI/MRA Head ONLY without Contrast IMPRESSION: No evidence of acute arterial occlusion. Small right vertebral artery. Lesion involving the third ventricle again seen. Electronically Signed: Blair Hinojosa MD at 16:18 EDT ,
[2023-10-23 09:03] LABS: Phosphorus 2.9 mg/dL (2.5-4.9)
--- NOTE | 2023-10-23 09:15 | CASEMGMT ---
Addendum entered by Peri Mendoza 10/23/23 11:54: Social Work SW spoke with pt's on the phone. Pt's states pt was completely independent and very active prior to this hospitalization. does not feel she can care for pt as he currently is and would like short term rehab prior to return home. SW discussed Inpatient Rehab with and she is agreeable to this. SW read list of providers to and her preference is [facility]. Email sent to Clemencia in Rehab. Pt will need precert prior to admission. SW notified that A list of [facility] and SNF providers including quality and resource use data and consistent with the patient?s preferred geographic region, medical needs, and insurance network provided from the [employer] Guide were left in pt room for her review. Physician updated. Plan: [facility], pending acceptance and precert SHAHIDA Richard Addendum entered by Peri Mendoza 10/23/23 09:36: Social Work SW spoke with PT who states pt is not safe to return home at this time due to functional debility. Phone call placed to pt and VM left requesting return call to discuss discharge plan. SHAHIDA Richard Original Note: Social Work SW me with pt and introduced self and role of SW. SW completed PHQ9 with pt score of 1/27 indicating no concerns for depression. SW spoke with pt regarding discharge plan and possible need for short term rehab. SW spoke about inpatient rehab and pt denies need for short term rehab. Pt was independent and active prior to admission and feels he can return home at this time. Pt states his is able to assist as needed. SW presented options of home health therapy vs. outpt therapy. Pt is uncertain at this time. PT entered room and will work with pt to determine level of care needed. SHAHIDA Richard
[2023-10-23 09:19] LABS: Anion Gap 9 (5-15); BUN 24 mg/dL (7-18); BUN/Creat Ratio 13.4 RATIO (10-20); Calcium,Total 8.3 mg/dL (8.5-10.1); Chloride 100 mmol/L (98-107); Cholesterol 75 mg/dL (200); Creatinine, Serum 1.79 mg/dL (0.70-1.30); EST Glomerular Filtration Rate 40 mL/min (>60); Est Glom Filt Rate - Afr Amer 49 mL/min (>60); Glucose 151 mg/dL (74-106); High Density Lipoprotein 12 mg/dL; Magnesium 2.3 mg/dL (1.6-2.6); Potassium 3.9 mmol/L (3.5-5.1); Sodium Level 133 mmol/L (136-145); Triglycerides 110 mg/dL; Very Low Density Lipoprotein 22 mg/dL (5-40)
[2023-10-23] MEDS: Aspirin 81 MG TAB.CHEW PO (10:15)
[2023-10-23] MEDS: Multivitamins,Therapeutic Tablet 1 TABLET PO (10:15)
[2023-10-23] MEDS: Ascorbic Acid 500 MG Tablet 1000 MG PO (10:15)
[2023-10-23] MEDS: Lactobacillis Acidophilus 2 CAP PO ×2 (10:15→21:26)
[2023-10-23] MEDS: Metoprolol(XL)Succ 50 MG Tablet PO (10:15)
[2023-10-23] MEDS: Cholecalciferol (VIT D3) 25 MCG TABLET (1,000 UNITS) PO (10:15)
[2023-10-23] MEDS: Heparin Injection (Vial) 5,000 UNIT/ML VIAL 5000 UNIT SC ×2 (10:15→21:27)
[2023-10-23] MEDS: Insulin Lispro 100 UNIT/ML INSULN.PEN SC ×2 (11:27→21:28)
[2023-10-23 11:49] LABS: Bedside Glucose 151 mg/dL (74-106)
--- NOTE | 2023-10-23 12:47 | PCM.PN.HOSP ---
Reason for Visit Reason for Visit: Fever/confusion Subjective Subjective Patient states overall he is feeling much better than he did yesterday and at presentation. He still has some functional debility for which currently he is is concerned about taking him home so case management is pursuing rehab right now however if he improves he may still be able to go home. Cultures are still pending. Tmax in the last 24 hours has been 100.9. Procalcitonin was elevated. Objective Data Objective Data Vital Signs: Vital Signs Temp Pulse Resp BP Pulse Ox O2 Del Method 98.2 F 77 18 138/70 H 95 Room Air 10/23/23 10:00 10/23/23 10:15 10/23/23 10:00 10/23/23 10:00 10/23/23 10:00 10/23/23 10:00 Oxygen Delivery Method Room Air Weight: 71.3 kg Body Mass Index (BMI) 23.2 Intake & Output: Intake and Output for Last 24 Hours 10/21/23 10/22/23 10/23/23 23:59 23:59 23:59 Intake Total 1050 / 1100 2599.67 / 2599.67 922.5 / 922.5 Output Total 550 / 550 400 / 400 Balance 1050 / 1100 2049.67 / 2049.67 522.5 / 522.5 Lab / Micro Data 10/23/23 07:49 10/23/23 07:49 Labs: Laboratory Results - last 24 hr 10/22/23 06:28: Procalcitonin 1.09 H 10/22/23 16:39: POC Glucose 212 H 10/22/23 21:31: POC Glucose 177 H 10/23/23 06:38: POC Glucose 142 H 10/23/23 07:49: WBC 11.1 H, RBC 4.10 L, Hgb 11.4 L, Hct 36.2 L, MCV 88.3, MCH 27.8, MCHC 31.5 L, RDW Std Deviation 42.8, RDW Coeff of Natalee 13.1, Plt Count 205, MPV 12.2 H, Immature Gran % (Auto) 0.600, Neut % (Auto) 85.4 H, Lymph % (Auto) 4.4 L, [place] % (Auto) 8.9, Eos % (Auto) 0.5, Baso % (Auto) 0.2, Absolute Neuts (auto) 9.4 H, Absolute Lymphs (auto) 0.49 L, Nucleated RBC % 0, Sodium 133 L, Potassium 3.9, Chloride 100, Carbon Dioxide 24.0, Anion Gap 9, BUN 24 H, Creatinine 1.79 H, Estim Creat Clear Calc 38.40, Est GFR (MDRD) Af Amer 49 L, Est GFR (MDRD) Non-Af 40 L, BUN/Creatinine Ratio 13.4, Glucose 151 H, Calcium 8.3 L, Phosphorus 2.9, Magnesium 2.3, Triglycerides 110, Cholesterol 75, LDL Cholesterol 41, VLDL Cholesterol 22, HDL Cholesterol 12 L 10/23/23 11:26: POC Glucose 151 H Micro: Microbiology 10/21/23 20:25 Urine, Clean Catch Urine Culture - Preliminary Culture exhibits no growth. 10/21/23 20:25 Urine, Clean Catch Legionella Antigen - Final 10/21/23 20:25 Urine, Clean Catch Streptococcus pneumoniae Antigen (M - Final 10/21/23 20:56 Mucosa - Nasopharyngeal SARS-CoV-2, Influenza & RSV (PCR) - Final Physical Exam Const alert, oriented x3, no apparent distress, average body habitus and well nourished Constitutional Narrative: Older, -[place] male, sitting up in wheelchair at the bedside as he is just returned from MRI for his MRA, patient appears comfortable does not appear toxic, looks as if he is feeling much better than yesterday, aide at the bedside, appears less fatigued, appears much younger than stated age General Appearance: cooperative HEENT normocephalic, head/scalp atraumatic, hearing grossly normal bilaterally and moist oral mucous membranes HEENT Narrative: Mallampati 2, no thrush Resp normal respiratory effort, no retractions, no use of accessory muscles and clear to auscultation bilaterally Auscultation: Negative for rales, rhonchi or wheezes Cardio regular rate, regular rhythm, S1 normal heart sound, S2 normal heart sound, no murmurs, no rub, no gallops and no clicks GI normal to inspection, nondistended, normoactive bowel sounds, soft to palpation and non-tender Extremity normal to inspection, full ROM and no clubbing, cyanosis or edema Extremity Narrative: Pedal pulses are 2+ Neuro oriented x3, CN's II-XII intact bilaterally, moves all extremities and no focal motor deficits Neuro Narrative: Significant gait abnormalities with a wide base of support and somewhat shuffling which is not his baseline, generalized weakness but no current focal deficits, NIH is 1 Sensorium / Orientation: awake, alert, oriented to person, oriented to place and oriented to time Speech: speech normal Psych affect normal Psych Narrative: Very pleasant, interacts appropriately Assessment & Plan Assessment/Plan (1) Generalized weakness: (2) Mass of brain: (3) Confusion: (4) Fever: QUALIFIERS: Fever type: due to other condition Qualified Code(s): R50.81 - Fever presenting with conditions classified elsewhere (5) Elevated serum creatinine: (6) Hyponatremia: (7) Dehydration: (8) Toxic metabolic encephalopathy: PLAN: Plan Fever -Etiology is unclear -White count continues to trend down as does differential -Urine cultures unremarkable -Strep pneumo and Legionella antigens are negative -Blood cultures remain pending -Not able to produce a sputum culture -Procalcitonin was elevated at 1.09 -Continue ceftriaxone since he is improving but will discontinue azithromycin with negative Legionella -Tmax in the last 24 hours was 100.9 degrees Leukocytosis -Improving leukocytosis and left shift -See above workup -Repeat CBC in a.m. Acute right 9 mm lacunar infarct of the right cortez radiata -Aspirin 81 mg daily -Continue home atorvastatin -Allowing for some mild permissive hypertension -If creatinine stable we will restart lisinopril tomorrow -Total cholesterol 75/LDL 41/HDL 12/triglycerides 110 -Hemoglobin A1c was 8.1 -Check echocardiogram -Cont NIH--> most recently 1 -Carotid Dopplers completed and pending read -MRA brain was done and pending read -Continue to address vascular risk modifications -Neuro has been consulted and they had no significant changes from the already made plan Toxic/metabolic encephalopathy -Likely related to the above -Patient is now alert and oriented x 3 seems to be resolved -CT was unremarkable for any acute findings that would cause this etiology -Continue to monitor clinically Elevated serum creatinine secondary to suspected dehydration -Baseline is unknown but based on the data we have now I do suspect he has some CKD we will continue to follow and should be able to clarify further -It was 1.7 when he was here to 48 hours prior to this presentation and greater than 2 on admission -Discontinue IV fluids -Currently 1.79 -Avoid nephrotoxins as able -Hold home lisinopril with elevated serum creatinine -Repeat BMP in a.m. Hyponatremia -Trending up -Continue to monitor--> no further workup at this time -Also could be related to pneumonia if actually present -Repeat in a.m. Generalized weakness/debility -Suspect related to the above infection -PT/OT following -Case management/social work consulted for assistance with discharge planning -Current plan is for rehab at discharge unless his functional status improved significantly Third ventricle mass -[address] -MRI shows an 8 mm lesion within or adjacent to the right side of the third ventricle which was indicative of ependymoma, subependymoma or central neuro cytoma, choroid plexus papilloma or intraventricular meningioma -Awaiting further neurology input -Will have follow-up as an outpatient with neurosurgery Essential hypertension -Continue metoprolol -Lisinopril on hold due to renal dysfunction -As needed hydralazine for systolic blood pressure greater than 160 Hyperlipidemia -Continue home atorvastatin DM-2 -Uncontrolled with a hemoglobin A1c of 8.1 -Will need to get improved glycemic control. -Hold home oral agents given elevated serum creatinine -SSI -Cardiac/carb controlled diet -Accu-Cheks as ordered DVT prophylaxis -Continue subcu heparin twice daily CODE STATUS -Full code Charges/Coding Visit Charges Inpatient E&M: 71456 Subs Hosp L2
[2023-10-23 17:17] LABS: Bedside Glucose 142 mg/dL (74-106)
[2023-10-23] MEDS: Atorvastatin Calcium 40 MG Tablet PO (21:26)
[2023-10-23] MEDS: Ceftriaxone 1 GM/50 ML BAG IV (21:28)
[2023-10-24] VITALS (8 sets, daily range): BP systolic 126–150; BP diastolic 58–80; PULSE 67–76; RESP 16–18; TEMP 36.2–37.1; O2SAT 92–98; BMI 23.5
[2023-10-24 00:12] LABS: Bedside Glucose 192 mg/dL (74-106)
[2023-10-24 06:52] LABS: Hematocrit 31.7 % (40-54); Hemoglobin 10.4 g/dL (13.0-16.5); Mean Corp Hgb Conc 32.8 g/dL (32-36); Mean Corpuscular Hgb 28.4 pg (27.0-32.0); Mean Corpuscular Volume 86.6 fL (80-94); Mean Platelet Vol. 12.1 fl (6.2-12.0); Platelet Count 224 K/mm3 (150-450); RBC Distribution Width SD 41.2 fl (35.1-43.9); Red Blood Count 3.66 M/mm3 (4.6-6.2); White Blood Count 10.1 K/mm3 (4.4-11.0)
[2023-10-24 06:54] LABS: Bedside Glucose 124 mg/dL (74-106)
[2023-10-24 07:19] LABS: Anion Gap 9 (5-15); BUN 26 mg/dL (7-18); BUN/Creat Ratio 14.9 RATIO (10-20); Calcium,Total 8.4 mg/dL (8.5-10.1); Chloride 101 mmol/L (98-107); Creatinine, Serum 1.75 mg/dL (0.70-1.30); EST Glomerular Filtration Rate 41 mL/min (>60); Est Glom Filt Rate - Afr Amer 50 mL/min (>60); Estimated Creatinine Clearance 39.28 ml/min; Glucose 140 mg/dL (74-106); Potassium 3.8 mmol/L (3.5-5.1); Sodium Level 133 mmol/L (136-145)
[2023-10-24] MEDS: Lisinopril 10 MG Tablet PO (09:23)
[2023-10-24] MEDS: Cholecalciferol (VIT D3) 25 MCG TABLET (1,000 UNITS) PO (09:24)
[2023-10-24] MEDS: Aspirin 81 MG TAB.CHEW PO (09:24)
[2023-10-24] MEDS: Metoprolol(XL)Succ 50 MG Tablet PO (09:24)
[2023-10-24] MEDS: Ascorbic Acid 500 MG Tablet 1000 MG PO (09:24)
[2023-10-24] MEDS: Multivitamins,Therapeutic Tablet 1 TABLET PO (09:24)
[2023-10-24] MEDS: Lactobacillis Acidophilus 2 CAP PO ×2 (09:24→20:59)
[2023-10-24] MEDS: Heparin Injection (Vial) 5,000 UNIT/ML VIAL 5000 UNIT SC ×2 (09:25→20:59)
--- NOTE | 2023-10-24 10:13 | PN.NEURO_ITS ---
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 Plan: stroke work up, MRA head with no acute finding carotid duplex pending TTE pending cont ASA/statin and vascular risk modification Encephalopathy likely due sepsis metabolic encephalopathy work up includes ammonia, tsh, b12, folate routine EEG 3rd vent lesion: on my read there are some 3rd vent obstruction but no significant hydrocephalus as per the primary team the pt had some shuffling gait and recent decline in functional status CT chest abd and pelvis ( malignancy work up) will push the images to pac and request NSGY at [facility] to review the images and consider possible transfer or out pt work up for the 3rd vent lesion Subject: Neurology Subjective RIAN RODRIGUEZ is a 68 year old M, who we are seeing in consultation today for advice on the management of acute stroke, 3rd vent lesion and related patient care. NIHSS NIHSS Nursing Documentation NIHSS Nursing Documentation: NIHSS: Ischemic Stroke/TIA Start: 10/22/23 11:20 Text: For PCU Patients: NIH and Neuro Check every 4 Status: Active hours, PRN and with change in RN caregiver. Freq: [id number] Protocol: Activity Type Activity Date Activity User E-sign Co-sign Detail Recorded Client Recorded Date Recorded By Document 10/24/23 09:20 [facility] desktop 10/24/23 09:40 AMG 10/24/23 09:20 NIH Stroke Scale [NIHSS] A score of 0 is normal or asymptomatic . Total possible score is 42. Inpatient: RN or Physician to activate a stroke alert for onset of new stroke symptoms or with NIHSS increase >/= 3 points. Following change in neurological status, NIHSS will be performed per physician order or more frequently PRN. -1a. Level of Consciousness Alert; keenly responsive -1b. LOC Questions Answers BOTH questions correctly. -1c. LOC Commands Performs both tasks correctly . -2. Best Gaze Normal -3. Visual No visual loss -4. Facial Palsy Normal symmetrical movements -5a. Left Arm No drift; arm holds 90 (or 45 ) degrees for full 10 seconds -5b. Right Arm No drift; arm holds 90 (or 45 ) degrees for full 10 seconds -6a. Left Leg No drift; leg holds 30-degree position for full 5 seconds -6b. Right Leg No drift; leg holds 30-degree position for full 5 seconds -7. Limb Ataxia Absent -8. Sensory Normal; no sensory loss -9. Best Language No aphasia; normal -10. Dysarthria Normal -11. Extinction and Inattention No abnormality -Total 0 Query Text:A score of 0 is normal or asymptomatic. Total possible score is 42 . ED: Notify Physician for NIHSS increase by > / = 3 points. Inpatient: RN or Physician to activate a stroke alert for NIHSS increase of > / = 3 points. Coma Scale [Assess] -Eye Opening Spontaneous -Motor Obeys Commands -Verbal Oriented [Total] -Coma Scale Total 15 Objective Data Objective Data Vital Signs: Vital Signs Temp Pulse Resp BP Pulse Ox O2 Del Method 98.7 F 76 18 142/70 H 94 Room Air 10/24/23 09:23 10/24/23 09:24 10/24/23 09:23 10/24/23 09:23 10/24/23 09:23 10/24/23 09:23 Oxygen Delivery Method Room Air Weight: 72.3 kg Body Mass Index (BMI) 23.5 Intake & Output: Intake and Output for Last 24 Hours 10/22/23 10/23/23 10/24/23 23:59 23:59 23:59 Intake Total 2599.67 / 2599.67 1412.33 / 1412.33 50 / 50 Output Total 550 / 550 400 / 400 Balance 2049.67 / 2049.67 1012.33 / 1012.33 50 / 50 Lab / Micro Data 10/24/23 05:05 10/24/23 05:05 Labs: Laboratory Results - last 24 hr 10/23/23 11:26: POC Glucose 151 H 10/23/23 16:59: POC Glucose 142 H 10/23/23 21:24: POC Glucose 192 H 10/24/23 05:05: WBC 10.1, RBC 3.66 L, Hgb 10.4 L, Hct 31.7 L, MCV 86.6, MCH 28.4, MCHC 32.8, RDW Std Deviation 41.2, RDW Coeff of Natalee 13.0, Plt Count 224, M PV 12.1 H, Sodium 133 L, Potassium 3.8, Chloride 101, Carbon Dioxide 23.0, Anion Gap 9, BUN 26 H, Creatinine 1.75 H, Estim Creat Clear Calc 39.28, Est GFR (MDRD) Af Amer 50 L, Est GFR (MDRD) Non-Af 41 L, BUN/Creatinine Ratio 14.9, G lucose 140 H, Calcium 8.4 L 10/24/23 06:28: POC Glucose 124 H Micro: Microbiology 10/21/23 20:25 Urine, Clean Catch Urine Culture - Preliminary Culture exhibits no growth. 10/21/23 20:25 Urine, Clean Catch Legionella Antigen - Final 10/21/23 20:25 Urine, Clean Catch Streptococcus pneumoniae Antigen (M - Final 10/21/23 20:56 Mucosa - Nasopharyngeal SARS-CoV-2, Influenza & RSV (PCR) - Final Radiography Diagnostic Testing: Radiology Impression Head MRA 10/23/23 09:00 IMPRESSION: No evidence of acute arterial occlusion. Small right vertebral artery. Lesion involving the third ventricle again seen. Electronically Signed: Blair Hinojosa MD at 16:18 EDT , Physical Exam Neuro Neuro Narrative: awake alert oriented x3 following commands EMOI face symmetric no focal weakness
[2023-10-24] MEDS: Insulin Lispro 100 UNIT/ML INSULN.PEN SC ×3 (11:29→20:59)
[2023-10-24 11:54] LABS: Bedside Glucose 194 mg/dL (74-106)
[2023-10-24 16:41] LABS: Bedside Glucose 184 mg/dL (74-106)
--- NOTE | 2023-10-24 17:15 | PCM.PN.HOSP ---
Reason for Visit Reason for Visit: Fever/confusion Subjective Subjective Patient states he is overall feeling much better. No fever in the last 24 hours. White count has normalized. He did better with therapy today however still not good enough to go home. I discussed this with both he and his he voices understanding and his is in agreements that he cannot come home with his current rehab status. We did discuss the tumor in his third ventricle and outpatient follow-up will be required at discharge at [facility]. Objective Data Objective Data Vital Signs: Vital Signs Temp Pulse Resp BP Pulse Ox O2 Del Method 98.2 F 67 18 148/80 H 96 Room Air 10/24/23 16:25 10/24/23 16:25 10/24/23 16:25 10/24/23 16:25 10/24/23 16:25 10/24/23 16:25 Oxygen Delivery Method Room Air Weight: 72.3 kg Body Mass Index (BMI) 23.5 Intake & Output: Intake and Output for Last 24 Hours 10/22/23 10/23/23 10/24/23 23:59 23:59 23:59 Intake Total 2599.67 / 2599.67 1412.33 / 1412.33 550 / 550 Output Total 550 / 550 400 / 400 Balance 2049.67 / 2049.67 1012.33 / 1012.33 550 / 550 Lab / Micro Data 10/24/23 05:05 10/24/23 05:05 Labs: Laboratory Results - last 24 hr 10/23/23 16:59: POC Glucose 142 H 10/23/23 21:24: POC Glucose 192 H 10/24/23 05:05: WBC 10.1, RBC 3.66 L, Hgb 10.4 L, Hct 31.7 L, MCV 86.6, MCH 28.4, MCHC 32.8, RDW Std Deviation 41.2, RDW Coeff of Natalee 13.0, Plt Count 224, MPV 12.1 H, Sodium 133 L, Potassium 3.8, Chloride 101, Carbon Dioxide 23.0, Anion Gap 9, BUN 26 H, Creatinine 1.75 H, Estim Creat Clear Calc 39.28, Est GFR (MDRD) Af Amer 50 L, Est GFR (MDRD) Non-Af 41 L, BUN/Creatinine Ratio 14.9, Glucose 140 H, Calcium 8.4 L 10/24/23 06:28: POC Glucose 124 H 10/24/23 11:28: POC Glucose 194 H 10/24/23 16:19: POC Glucose 184 H Micro: Microbiology 10/21/23 20:25 Urine, Clean Catch Urine Culture - Final Culture exhibits no growth. 10/21/23 20:25 Urine, Clean Catch Legionella Antigen - Final 10/21/23 20:25 Urine, Clean Catch Streptococcus pneumoniae Antigen (M - Final 10/21/23 20:56 Mucosa - Nasopharyngeal SARS-CoV-2, Influenza & RSV (PCR) - Final Radiography Diagnostic Testing: Radiology Impression Echocardiogram 10/22/23 10:57 Interpretation Summary The estimated ejection fraction is 60 %. No evidence for diastolic dysfunction. The left atrium is mildly enlarged. Trivial mitral valve insufficiency. Ordering Physician: Sheri Montenegro Referring Physician: RICHAR RAINES Performed By: Lorin Chicas RCS Physical Exam Const alert, oriented x3, no apparent distress, average body habitus, healthy appearing and well nourished Constitutional Narrative: Older, -[place] male, sitting up in bed, appears comfortable, nontoxic, is at the bedside General Appearance: cooperative HEENT normocephalic, head/scalp atraumatic, hearing grossly normal bilaterally and moist oral mucous membranes HEENT Narrative: Mallampati 2, no thrush, dentition is good Resp normal respiratory effort, no retractions, no use of accessory muscles and No clear to auscultation bilaterally Resp Narrative: Crackles in left lower lobe Auscultation: crackles; Negative for rales, rhonchi or wheezes Cardio regular rate, regular rhythm, S1 normal heart sound, S2 normal heart sound, no murmurs, no rub, no gallops and no clicks GI normal to inspection, nondistended, normoactive bowel sounds, soft to palpation and non-tender Extremity no clubbing, cyanosis or edema Extremity Narrative: Pedal pulses are 2+ Neuro oriented x3, moves all extremities and no focal motor deficits Speech: speech normal Psych affect normal Psych Narrative: Very pleasant, interacts appropriately Assessment & Plan Assessment/Plan (1) Generalized weakness: (2) Mass of brain: (3) Confusion: (4) Fever: QUALIFIERS: Fever type: due to other condition Qualified Code(s): R50.81 - Fever presenting with conditions classified elsewhere (5) Elevated serum creatinine: (6) Hyponatremia: (7) Dehydration: (8) Toxic metabolic encephalopathy: PLAN: Plan Left lower lobe pneumonia -Patient with abnormal exam of the left lower lobe today which is consistent with the x-ray findings -White count has normalized -Urine cultures unremarkable -Strep pneumo and Legionella antigens are negative -Blood cultures remain pending -Not able to produce a sputum culture -Procalcitonin was elevated at 1.09--> repeat in a.m. -Will discontinue ceftriaxone and start him on Levaquin day 1 of 5 to complete a total of 7-day course with antibiotics -Fevers have resolved Leukocytosis -Resolved Acute right 9 mm lacunar infarct of the right cortez radiata -Aspirin 81 mg daily -Continue home atorvastatin -Will now restart antihypertensives for improved blood pressure control -Total cholesterol 75/LDL 41/HDL 12/triglycerides 110 -Hemoglobin A1c was 8.1 -Echocardiogram was unremarkable -Cont NIH--> most recently 1 -Carotid Dopplers completed and pending read -MRA brain was unremarkable for any acute findings -Continue to address vascular risk modifications -Neuro has been consulted and they had no significant changes from the already made plan Toxic/metabolic encephalopathy -Resolved CKD stage IIIb -It does appear that his baseline serum creatinine runs between 1.7 and 1.8 as he has leveled out at this time -Avoid nephrotoxins as able -Restarting home lisinopril -Repeat BMP in a.m. Hyponatremia -Stable at 133 right now -We have no data prior to 10/19/2023 Generalized weakness/debility -Suspect related to the above infection -PT/OT following and currently recommending placement in either rehab or skilled facility -Hoping for rehab visits would be the most appropriate place for him to go -Case management/social work consulted for assistance with discharge planning -Current plan is for rehab at discharge unless his functional status improved significantly Third ventricle mass -[address] -MRI shows an 8 mm lesion within or adjacent to the right side of the third ventricle which was indicative of ependymoma, subependymoma or central neuro cytoma, choroid plexus papilloma or intraventricular meningioma -Neurology recommended neurosurgery review the imaging which they have and patient needs outpatient follow-up in the next [address] Holt at [facility] (phone [phone]) Essential hypertension -Continue metoprolol -Restart home lisinopril but decrease dose from 40 to 10 mg daily -As needed hydralazine for systolic blood pressure greater than 160 Hyperlipidemia -Continue home atorvastatin DM-2 -Uncontrolled with a hemoglobin A1c of 8.1 -Will need to get improved glycemic control. -Hold home oral agents given elevated serum creatinine -SSI -Cardiac/carb controlled diet -Accu-Cheks as ordered DVT prophylaxis -Continue subcu heparin twice daily CODE STATUS -Full code Charges/Coding Visit Charges Inpatient E&M: 39378 Subs Hosp L2
[2023-10-24] MEDS: Atorvastatin Calcium 40 MG Tablet PO (20:59)
[2023-10-24 21:48] LABS: Bedside Glucose 187 mg/dL (74-106)
[2023-10-25 02:40] VITALS: BP 151/71; PULSE 64; RESP 16; TEMP 36.2; O2SAT 95
[2023-10-25 06:00] VITALS: BMI 23.0
[2023-10-25 06:19] LABS: Absolute Lymphocyte Count 0.66 X10^3/uL (0.83-4.51); Absolute Neutrophil Count 6.1 X10^3/uL (2.0-7.7); Basophil# 0.01 X10^3/uL; Basophil% 0.1 % (0-1); Eosinophil# 0.21 X10^3/uL; Eosinophils% 2.8 % (0-5); Hematocrit 30.9 % (40-54); Lymphocyte # 0.66 X10^3/ul (0.83-4.51); Lymphocyte % 8.7 % (19-41); Mean Corp Hgb Conc 32.4 g/dL (32-36); Mean Corpuscular Hgb 27.9 pg (27.0-32.0); Mean Corpuscular Volume 86.3 fL (80-94); Mean Platelet Vol. 11.4 fl (6.2-12.0); Monocyte# 0.59 X10^3/uL; Monocyte% 7.8 % (0-10); NRBC Flagged by Analyzer 0 % (0-5); Neutrophil # 6.06 X10^3/uL (2.7-7.7); Neutrophil % 79.8 % (47-70); Platelet Count 237 K/mm3 (150-450); RBC Distribution Width CV 13.1 % (11.6-14.6); RBC Distribution Width SD 41.2 fl (35.1-43.9); Red Blood Count 3.58 M/mm3 (4.6-6.2); White Blood Count 7.6 K/mm3 (4.4-11.0)
[2023-10-25] MEDS: levoFLOXacin 750 MG Tablet PO (06:29)
[2023-10-25] MEDS: Insulin Lispro 100 UNIT/ML INSULN.PEN SC (06:32)
[2023-10-25 06:41] LABS: Anion Gap 9 (5-15); BUN 25 mg/dL (7-18); BUN/Creat Ratio 15.5 RATIO (10-20); Calcium,Total 8.8 mg/dL (8.5-10.1); Chloride 105 mmol/L (98-107); Creatinine, Serum 1.61 mg/dL (0.70-1.30); EST Glomerular Filtration Rate 45 mL/min (>60); Est Glom Filt Rate - Afr Amer 55 mL/min (>60); Estimated Creatinine Clearance 42.69 ml/min; Glucose 177 mg/dL (74-106); Magnesium 2.5 mg/dL (1.6-2.6); Potassium 3.5 mmol/L (3.5-5.1); Sodium Level 136 mmol/L (136-145)
[2023-10-25 07:22] VITALS: O2SAT 97
[2023-10-25 08:59] LABS: Bedside Glucose 156 mg/dL (74-106)
[2023-10-25 09:04] VITALS: BP 158/82; PULSE 75; RESP 16; TEMP 36.7; O2SAT 97
[2023-10-25] MEDS: Aspirin 81 MG TAB.CHEW PO (09:13)
[2023-10-25] MEDS: Cholecalciferol (VIT D3) 25 MCG TABLET (1,000 UNITS) PO (09:13)
[2023-10-25] MEDS: Ascorbic Acid 500 MG Tablet 1000 MG PO (09:14)
[2023-10-25] MEDS: Multivitamins,Therapeutic Tablet 1 TABLET PO (09:14)
[2023-10-25] MEDS: Lactobacillis Acidophilus 2 CAP PO ×2 (09:14→20:43)
[2023-10-25 09:15] VITALS: PULSE 75
[2023-10-25] MEDS: Metoprolol(XL)Succ 50 MG Tablet PO (09:15)
[2023-10-25] MEDS: Lisinopril 40 MG Tablet PO (09:15)
[2023-10-25] MEDS: Heparin Injection (Vial) 5,000 UNIT/ML VIAL 5000 UNIT SC ×2 (09:17→20:38)
[2023-10-25] MEDS: Insulin Glargine-YFGN 100 UNIT/ML Pen 10 UNIT SC (09:17)
[2023-10-25 09:35] VITALS: BMI 23.0
[2023-10-25 11:51] LABS: Bedside Glucose 140 mg/dL (74-106)
--- NOTE | 2023-10-25 11:58 | PN.HOSP_ITS ---
Reason for Visit Reason for Visit: Fever/confusion Subjective Subjective No complaints. Remains afebrile for 48 hours now. Patient states he feels like his brain and his body are now communicating better and he feels like he is moving better. Objective Data Objective Data Vital Signs: Vital Signs Temp Pulse Resp BP Pulse Ox O2 Del Method 98.0 F 75 16 158/82 H 97 Room Air 10/25/23 09:04 10/25/23 09:15 10/25/23 09:04 10/25/23 09:04 10/25/23 09:04 10/25/23 09:04 Oxygen Delivery Method Room Air Weight: 70.8 kg Body Mass Index (BMI) 23.0 Intake & Output: Intake and Output for Last 24 Hours 10/23/23 10/24/23 10/25/23 23:59 23:59 23:59 Intake Total 1412.33 / 1412.33 1050 / 1050 Output Total 400 / 400 Balance 1012.33 / 1012.33 1050 / 1050 Lab / Micro Data 10/25/23 05:45 10/25/23 05:45 Labs: Laboratory Results - last 24 hr 10/24/23 16:19: POC Glucose 184 H 10/24/23 20:58: POC Glucose 187 H 10/25/23 05:45: WBC 7.6, RBC 3.58 L, Hgb 10.0 L, Hct 30.9 L, MCV 86.3, MCH 27.9, MCHC 32.4, RDW Std Deviation 41.2, RDW Coeff of Natalee 13.1, Plt Count 237, MPV 11.4, Immature Gran % (Auto) 0.800, Neut % (Auto) 79.8 H, Lymph % (Auto) 8.7 L, Taylor % (Auto) 7.8, Eos % (Auto) 2.8, Baso % (Auto) 0.1, Absolute Neuts (auto) 6.1, Absolute Lymphs (auto) 0.66 L, Nucleated RBC % 0, Sodium 136, Potassium 3.5, Chloride 105, Carbon Dioxide 22.0, Anion Gap 9, BUN 25 H, Creatinine 1.61 H , Estim Creat Clear Calc 42.69, Est GFR (MDRD) Af Amer 55 L, Est GFR (MDRD) Non- Af 45 L, BUN/Creatinine Ratio 15.5, Glucose 177 H, Calcium 8.8, Magnesium 2.5 10/25/23 06:31: POC Glucose 156 H 10/25/23 11:32: POC Glucose 140 H Micro: Microbiology 10/21/23 20:25 Urine, Clean Catch Urine Culture - Final Culture exhibits no growth. 10/21/23 20:25 Urine, Clean Catch Legionella Antigen - Final 10/21/23 20:25 Urine, Clean Catch Streptococcus pneumoniae Antigen (M - Final 10/21/23 20:56 Mucosa - Nasopharyngeal SARS-CoV-2, Influenza & RSV (PCR) - Final Radiography Diagnostic Testing: Radiology Impression Carotid Duplex 10/22/23 10:57 Interpretation Summary Moderate (50-69%) stenosis right extracranial internal carotid. Mild (<50%) stenosis left extracranial internal carotid. Patent and antegrade vertebrals bilaterally. Ordering Physician: Sheri Montenegro Referring Physician: Sivan Henderson Performed By: Ezequiel Ramirez RVT Physical Exam Const alert, oriented x3, no apparent distress, average body habitus, healthy appearing and well nourished Constitutional Narrative: Older, -Turkish male, reclining in a chair at the bedside, appears comfortable, nontoxic, very pleasant General Appearance: cooperative HEENT normocephalic, head/scalp atraumatic and moist oral mucous membranes HEENT Narrative: Mild hearing loss, Mallampati is 2, dentition is good, no thrush Resp normal respiratory effort, no retractions, no use of accessory muscles and No clear to auscultation bilaterally Resp Narrative: Still mild crackles in left lower lobe but improved in the last 24 hours Auscultation: crackles; Negative for rales, rhonchi or wheezes Cardio regular rate, regular rhythm, S1 normal heart sound, S2 normal heart sound, no murmurs, no rub, no gallops and no clicks GI normal to inspection, nondistended, normoactive bowel sounds, soft to palpation and non-tender Extremity no clubbing, cyanosis or edema Extremity Narrative: Pedal pulses are 2+ Skin Skin Narrative: Small area on left forearm where blistering has occurred from Tegaderm Neuro oriented x3, moves all extremities and no focal motor deficits Speech: speech normal Psych affect normal Psych Narrative: Very pleasant, interacts appropriately Assessment & Plan Assessment/Plan (1) Generalized weakness: (2) Mass of brain: (3) Confusion: (4) Fever: QUALIFIERS: Fever type: due to other condition Qualified Code(s): R50.81 - Fever presenting with conditions classified elsewhere (5) Elevated serum creatinine: (6) Hyponatremia: (7) Dehydration: (8) Toxic metabolic encephalopathy: (9) Bilateral carotid artery stenosis: PLAN: Plan Left lower lobe pneumonia -Seems to be improving -White count and fever have resolved -Remains on room air with sats at 97% -Strep pneumo and Legionella antigens are negative -Blood cultures remain pending however I suspect if they be positive they would be reported out at this time -Not able to produce a sputum culture -Procalcitonin was elevated at 1.09--> repeat Pro-Tobias is pending -Continue Levaquin day 3 of 7 Acute right 9 mm lacunar infarct of the right cortez radiata -Aspirin 81 mg daily -Continue home atorvastatin -Continue home antihypertensives -Echocardiogram was unremarkable -Carotid Dopplers do show moderate stenosis on the right extracranial internal carotid artery and mild of the left extracranial carotid artery with patent vertebral arteries -MRA brain was unremarkable for any acute findings -Continue to address vascular risk modifications -Neuro has been consulted and they had no significant changes from the already made plan Bilateral carotid artery stenosis -Moderate right/mild left -Refer to vascular surgery at discharge for medical management -Continue aspirin -Continue atorvastatin -Continue blood pressure control CKD stage IIIb -Current serum creatinine is 1.61 and seems to be running close to his baseline -Avoid nephrotoxins as able -Restarting home lisinopril -Repeat BMP in a.m. Hyponatremia -Resolved despite hypernatremia Generalized weakness/debility -Suspect related to the above infection -PT/OT following and currently recommending placement in either rehab or skilled facility -Hoping for rehab visits would be the most appropriate place for him to go -Will need to be accepted and then pre-CERT will need to be obtained -Case management/social work consulted for assistance with discharge planning -Current plan is for rehab at discharge unless his functional status improved significantly Third ventricle mass -[address] -MRI shows an 8 mm lesion within or adjacent to the right side of the third ventricle which was indicative of ependymoma, subependymoma or central neuro cytoma, choroid plexus papilloma or intraventricular meningioma -Neurology recommended neurosurgery review the imaging which they have and patient needs outpatient follow-up in the next [address] Holt at [facility] (phone [phone]) Essential hypertension -Continue metoprolol -Continue lisinopril but increase dose to 40 mg daily and continue to monitor blood pressures -Goal BP is less than 130/80 -As needed hydralazine for systolic blood pressure greater than 160 Hyperlipidemia -Continue home atorvastatin DM-2 -Uncontrolled with a hemoglobin A1c of 8.1 -Will need to get improved glycemic control. -Discontinue oral agents at discharge due to renal dysfunction -Add Lantus 10 units daily for now -Suspect [facility] be [facility] an outpatient -SSI -Cardiac/carb controlled diet -Accu-Cheks as ordered DVT prophylaxis -Continue subcu heparin twice daily CODE STATUS -Full code Disposition: -Patient has been medically stable for discharge since 10/24/2023. Will need acceptance from rehab and pre-CERT as current recommendations are for ongoing inpatient rehab at discharge. Patient will need follow-up at [facility] neurosurgery within the next 1 to 2 weeks as well as vascular surgery follow-up within the next 3 months. Charges/Coding Visit Charges Inpatient E&M: 23499 Subs Hosp L2
[2023-10-25 15:44] VITALS: BP 155/76; PULSE 66; RESP 16; TEMP 36.6; O2SAT 100
[2023-10-25 17:08] LABS: Bedside Glucose 160 mg/dL (74-106)
[2023-10-25] MEDS: Atorvastatin Calcium 40 MG Tablet PO (20:39)
[2023-10-25 21:40] VITALS: BP 159/85; PULSE 66; RESP 18; TEMP 35.9; O2SAT 97
[2023-10-25 22:09] VITALS: BMI 23.0
[2023-10-26] VITALS (7 sets, daily range): BP systolic 133–147; BP diastolic 69–78; PULSE 66–70; RESP 12–18; TEMP 35.9–36.5; O2SAT 96–99; BMI 23.1
[2023-10-26 01:11] LABS: Bedside Glucose 146 mg/dL (74-106)
[2023-10-26] MEDS: Insulin Lispro 100 UNIT/ML INSULN.PEN SC (06:22)
[2023-10-26 06:42] LABS: Bedside Glucose 152 mg/dL (74-106)
[2023-10-26 07:39] LABS: Absolute Lymphocyte Count 0.68 X10^3/uL (0.83-4.51); Absolute Neutrophil Count 5.9 X10^3/uL (2.0-7.7); Basophil# 0.02 X10^3/uL; Basophil% 0.3 % (0-1); Eosinophil# 0.22 X10^3/uL; Hematocrit 32.7 % (40-54); Hemoglobin 10.7 g/dL (13.0-16.5); Lymphocyte # 0.68 X10^3/ul (0.83-4.51); Lymphocyte % 9.2 % (19-41); Mean Corp Hgb Conc 32.7 g/dL (32-36); Mean Corpuscular Hgb 28.8 pg (27.0-32.0); Mean Corpuscular Volume 87.9 fL (80-94); Mean Platelet Vol. 11.4 fl (6.2-12.0); Monocyte# 0.54 X10^3/uL; Monocyte% 7.3 % (0-10); NRBC Flagged by Analyzer 0 % (0-5); Neutrophil # 5.86 X10^3/uL (2.7-7.7); Neutrophil % 79.4 % (47-70); Platelet Count 289 K/mm3 (150-450); RBC Distribution Width CV 13.2 % (11.6-14.6); RBC Distribution Width SD 42.3 fl (35.1-43.9); Red Blood Count 3.72 M/mm3 (4.6-6.2); White Blood Count 7.4 K/mm3 (4.4-11.0)
[2023-10-26 08:01] LABS: Anion Gap 8 (5-15); BUN 25 mg/dL (7-18); BUN/Creat Ratio 17.9 RATIO (10-20); Calcium,Total 8.6 mg/dL (8.5-10.1); Chloride 106 mmol/L (98-107); EST Glomerular Filtration Rate 53 mL/min (>60); Est Glom Filt Rate - Afr Amer 64 mL/min (>60); Glucose 149 mg/dL (74-106); Potassium 3.3 mmol/L (3.5-5.1); Sodium Level 137 mmol/L (136-145)
[2023-10-26] MEDS: Multivitamins,Therapeutic Tablet 1 TABLET PO (08:41)
[2023-10-26] MEDS: Aspirin 81 MG TAB.CHEW PO (08:41)
[2023-10-26] MEDS: Metoprolol(XL)Succ 50 MG Tablet PO (08:42)
[2023-10-26] MEDS: Lisinopril 40 MG Tablet PO (08:42)
[2023-10-26] MEDS: Ascorbic Acid 500 MG Tablet 1000 MG PO (08:42)
[2023-10-26] MEDS: Lactobacillis Acidophilus 2 CAP PO (08:42)
[2023-10-26] MEDS: Cholecalciferol (VIT D3) 25 MCG TABLET (1,000 UNITS) PO (08:43)
[2023-10-26] MEDS: Insulin Glargine-YFGN 100 UNIT/ML Pen 10 UNIT SC (08:43)
[2023-10-26] MEDS: Heparin Injection (Vial) 5,000 UNIT/ML VIAL 5000 UNIT SC (08:43)
--- NOTE | 2023-10-26 10:52 | CASEMGMT ---
JAZMINE received a phone call from patient's Byron. Byron was inquiring about [facility] Acute Rehab. JAZMINE explained to Byron that patient is walking too far with therapy and insurance will not approve him to go anywhere for inpatient rehab. SW explained other options of home health and outpatient. Byron felt like outpatient would be better. JAZMINE explained patient could go to [facility] for outpatient. SW explained to her where it is located as she was not aware. Byron said she would like to talk with the doctor when she comes in after bit. JAZMINE told her SW will notify physician. JAZMINE updated RN CM and physician. Plan: d/c home with outpatient therapy. Carmen MOLINA
[2023-10-26] MEDS: amLODIPine 5 MG Tablet PO (11:01)
[2023-10-26 11:40] LABS: Bedside Glucose 135 mg/dL (74-106)
[2023-10-26 12:25] LABS: Procalcitonin 1.02 ng/mL (0.00-0.09)
--- NOTE | 2023-10-26 13:46 | PCM.DC.SUM ---
Providers Date of Admission: 10/21/23 Date of Discharge: 10/26/23 Primary Care Physician: Dr. Sivan Henderson MD Consultations 10/22/23 11:20 Consult: Tele-Neurology Routine Consulting Provider: [facility] Reason for Consult: Acute Ischemic Stroke/TIA EMERGENT Consult: No MD Notified: Yes Date Notified: 10/22/23 Time Notified: 10:55 Method of Notification: Answering Service Nursing Unit Staff Notify [facility] of Tele-Neurology Consult: Yes Reason For Visit: LEFT LOWER LOBE PNEUMONIA, RESPIRATORY Diagnosis Discharge Diagnosis (1) Generalized weakness: Status: Acute Code(s): R53.1 - Weakness (2) Mass of brain: Status: Acute Code(s): G93.89 - Other specified disorders of brain (3) Confusion: Status: Acute Code(s): R41.0 - Disorientation, unspecified (4) Fever: Status: Acute Code(s): R50.9 - Fever, unspecified Qualifiers: Fever type: due to other condition Qualified Code(s): R50.81 - Fever presenting with conditions classified elsewhere (5) Elevated serum creatinine: Status: Acute Code(s): R79.89 - Other specified abnormal findings of blood chemistry (6) Hyponatremia: Status: Acute Code(s): E87.1 - Hypo-osmolality and hyponatremia (7) Dehydration: Status: Acute Code(s): E86.0 - Dehydration (8) Toxic metabolic encephalopathy: Status: Acute Code(s): G92.8 - Other toxic encephalopathy (9) Bilateral carotid artery stenosis: Status: Acute Code(s): I65.23 - Occlusion and stenosis of bilateral carotid arteries Plan Left lower lobe pneumonia -Seems to be improving -White count and fever have resolved -Remains on room air with sats at 97% -Strep pneumo and Legionella antigens are negative -Blood cultures remain pending however I suspect if they be positive they would be reported out at this time -Not able to produce a sputum culture -Procalcitonin was elevated at 1.09--> repeat Pro-Tobias is pending -Continue Levaquin day 3 of 7 Acute right 9 mm lacunar infarct of the right cortez radiata -Aspirin 81 mg daily -Continue home atorvastatin -Continue home antihypertensives -Echocardiogram was unremarkable -Carotid Dopplers do show moderate stenosis on the right extracranial internal carotid artery and mild of the left extracranial carotid artery with patent vertebral arteries -MRA brain was unremarkable for any acute findings -Continue to address vascular risk modifications -Neuro has been consulted and they had no significant changes from the already made plan Bilateral carotid artery stenosis -Moderate right/mild left -Refer to vascular surgery at discharge for medical management -Continue aspirin -Continue atorvastatin -Continue blood pressure control CKD stage IIIb -Current serum creatinine is 1.61 and seems to be running close to his baseline -Avoid nephrotoxins as able -Restarting home lisinopril -Repeat BMP in a.m. Hyponatremia -Resolved despite hypernatremia Generalized weakness/debility -Suspect related to the above infection -PT/OT following and currently recommending placement in either rehab or skilled facility -Hoping for rehab visits would be the most appropriate place for him to go -Will need to be accepted and then pre-CERT will need to be obtained -Case management/social work consulted for assistance with discharge planning -Current plan is for rehab at discharge unless his functional status improved significantly Third ventricle mass -[address] -MRI shows an 8 mm lesion within or adjacent to the right side of the third ventricle which was indicative of ependymoma, subependymoma or central neuro cytoma, choroid plexus papilloma or intraventricular meningioma -Neurology recommended neurosurgery review the imaging which they have and patient needs outpatient follow-up in the next 1 to [address] Holt at [facility] (phone [phone]) Essential hypertension -Continue metoprolol -Continue lisinopril but increase dose to 40 mg daily and continue to monitor blood pressures -Goal BP is less than 130/80 -As needed hydralazine for systolic blood pressure greater than 160 Hyperlipidemia -Continue home atorvastatin DM-2 -Uncontrolled with a hemoglobin A1c of 8.1 -Will need to get improved glycemic control. -Discontinue oral agents at discharge due to renal dysfunction -Add Lantus 10 units daily for now -Suspect patient would be a good Trulicity candidate as an outpatient -SSI -Cardiac/carb controlled diet -Accu-Cheks as ordered DVT prophylaxis -Continue subcu heparin twice daily CODE STATUS -Full code Disposition: -Patient has been medically stable for discharge since 10/24/2023. Will need acceptance from rehab and pre-CERT as current recommendations are for ongoing inpatient rehab at discharge. Patient will need follow-up at [facility] within the next 1 to 2 weeks as well as vascular surgery follow-up within the next 3 months. Medications at Discharge Home Medications ascorbic acid (vitamin C) 1,000 mg tablet,extended release (C Complex) 1,000 mg PO DAILY vitamin 10/21/23 aspirin 81 mg chewable tablet (Aspirin Childrens) 1 tab PO DAILY heart health 10/21/23 atorvastatin 40 mg tablet 40 mg PO QHS 10/21/23 cholecalciferol (vitamin D3) 25 mcg (1,000 unit) capsule (Vitamin D3) 25 mcg PO DAILY 10/21/23 garlic 100 mg tablet 100 mg PO DAILY 10/21/23 lisinopril 40 mg tablet 40 mg PO DAILY 10/21/23 metoprolol succinate 50 mg tablet,extended release 24 hr 50 mg PO DAILY 10/21/23 multivitamin (Daily Multi-Vitamin tablet) 1 tab PO DAILY 10/21/23 omega-3 fatty acids 500 mg PO DAILY 10/21/23 vitamin B12 500 mcg-folic acid 400 mcg tablet 1 tab PO DAILY 10/21/23 amlodipine 5 mg tablet 5 mg PO DAILY #30 tabs 10/26/23 levofloxacin 750 mg tablet 750 mg PO Q48@0600 3 days #3 tabs 10/26/23 metformin 1,000 mg tablet 1,000 mg PO BID #60 tabs 10/26/23 Hospital Course Operations None Procedures 2-D Echocardiogram, EKG, Modified Barium Swallow and - (CT brain/chest x-ray/MRI brain/carotid duplex/MRA brain) Summary of Care Provided Minutes Spent on Discharge: 45 Hospital Course: Patient is a 68-year-old white male who presented to the emergency department at [facility] on 10/21/2023 with fever and confusion he presented to the emergency department here on 18 October with some fever, diarrhea, and altered mental status and there was some suspicion for possible adverse drug reaction to metformin at that time and he was discharged home. At this admission his gave most of the history and she reported that 4 to 5 days prior to admission he was having intermittent fevers up to 102 that have been predominantly present over the last 2 days that she had treated with Tylenol as well as increased urination with intermittent incontinence and the was concerned because he was not acting like himself. He had also had concomitant generalized weakness and gait dysfunction. Vital signs on presentation showed temperature 98.8, heart rate was 84, blood pressure was 144/63 and pulse ox was 97% on room air. Tmax since admission is 102. CBC on presentation showed a significant leukocytosis with a stable appearing anemia. There was a significant left shift with an 87.8% neutrophilia. Coags were slightly elevated from baseline. Chemistry panel showed hyponatremia with a sodium of 129 elevated BUN at 29 and serum creatinine of 2.06 with unknown baseline and a glucose of 240. His liver functions were fairly unremarkable. Vitamin B12 was normal folate was normal and TSH was 3.03. CT of the brain showed chronic delusional changes and a 5 mm round mass in the third ventricle. Chest x-ray was suggestive of a left lower lobe infiltrate on the rate however I did not appreciate it on my review of the imaging. Strep pneumo and Legionella antigens are negative. COVID/flu/RSV was unremarkable. Blood and urine cultures were obtained however his UA was not suggestive of infection. He was admitted to the medical floor and placed on CAP coverage with azithromycin and ceftriaxone. An MRI was ordered for the abnormality on his CT of the brain with and without contrast. Strep pneumo and Legionella tendons are negative, urine culture was unremarkable, blood cultures were unremarkable. COVID/flu/RSV was negative. We were unable to gather a sputum culture as patient was not able to produce however his lung sounds were abnormal in the left base which was correlated with his abnormal chest x-ray. This improved during his hospital course on antibiotic so I highly suspect he may have had an aspiration pneumonia related to his above events. His did report that he did have a witnessed aspiration event. He was treated with Levaquin during his hospital course and discharged to complete 3 more days at the time of discharge. His MRI was performed with and without contrast and showed an acute right 9 mm lacunar type infarct involving the right cortez radiata as well as an 8 mm lesion within or adjacent to the right side of the third ventricle. Carotid duplex showed moderate stenosis in the right extracranial internal carotid artery and mild stenosis in the left extracranial carotid artery with patent antegrade flow in the vertebral arteries bilaterally. His lipid panel demonstrated LDL of 41 so he was maintained on his home atorvastatin at 40 mg daily. He continued his home aspirin 81 mg daily. His blood pressure slowly improved with time so we continued his home blood pressure medication however his blood pressure still remain above goal of 130/80 so amlodipine 5 mg was started prior to discharge. He may need up titration for this as well. A modified barium swallow was performed and showed some mild oropharyngeal dysphagia which improved during his hospital course. Speech therapy was continued however diet was for regular textures and thin liquids throughout his hospitalization and he will have ongoing outpatient therapy services for PT/OT/and speech therapy after discharge at [facility]. His hemoglobin A1c was found to be elevated at 8.1. Our goal is to improve his glycemic index and drop his hemoglobin A1c to less than 7.0. As noted above he had some elevated serum creatinine on admission at 1.7 and his metformin was held. By the time of discharge his serum creatinine dropped to 1.4 so we did feel we could go ahead and restart his metformin however he will need close outpatient follow-up with regards to his renal function and metformin use. We did increase the dose from 500 twice daily to thousand twice daily and have recommended he follow-up with his primary care physician for ongoing care with regards to his diabetes within the next 1 to 2 weeks after discharge. Given the fact that this was a lacunar infarct, neurology recommended controlling his risk factors including his blood pressure which we addressed, his cholesterol which seems to be well-controlled and his diabetes which needs a little bit of work. With regards to his third ventricle tumor they asked that neurosurgery look at the images. The neurosurgeon at [facility] [place] reviewed the images and they did not feel imminent transfer was required however they did recommend that he follow-up as an outpatient within the next 1 to [address] Holt at [facility] neurosurgery. Phone number was given to the patient for his office and they were asked to follow-up to make an outpatient appointment to be seen within the next 1 to 2 weeks. Prescriptions for the Levaquin, amlodipine, and increase metformin were sent to his local pharmacy at the time of discharge and I have recommended that he follow-up with his primary care physician for follow-up BMP to ensure his creatinine remained stable on the metformin after discharge. Discharge diagnoses: Left lower lobe pneumonia secondary to aspiration Acute lacunar infarct in the right cortez radiata Bilateral carotid artery stenosis 9 mm third ventricle mass Mild oropharyngeal dysphagia CKD-baseline unknown however appears to be stage II-IIIa Hyponatremia-resolved Essential hypertension Hyperlipidemia [id number] Debility and weakness due to stroke and pneumonia Physical Exam Const alert, oriented x3, no apparent distress, average body habitus, no limitations, healthy appearing and well nourished Constitutional Narrative: Older, -[place] male, reclining in a chair at the bedside, appears comfortable, nontoxic, very pleasant, appears younger than stated age, at bedside General Appearance: cooperative, comfortable, well kempt and well developed Orientation / Consciousness: awake, oriented to person, oriented to place and oriented to time Exam Limitations: no limitations Nutritional Appearance: thin HEENT normocephalic, head/scalp atraumatic, hearing grossly normal bilaterally and moist oral mucous membranes HEENT Narrative: Dentition is good, Mallampati is 2, no thrush Eyes PERRL, EOMs intact bilaterally and conjunctivae normal Eyes Narrative: No scleral icterus Neck no lymphadenopathy and supple Neck Narrative: Trachea midline, no thyroid enlargement Resp normal respiratory effort, no retractions, no use of accessory muscles and No clear to auscultation bilaterally Auscultation: crackles; Negative for rales, rhonchi or wheezes Cardio regular rate, regular rhythm, S1 normal heart sound, S2 normal heart sound, no murmurs, no rub, no gallops and no clicks GI normal to inspection, nondistended, normoactive bowel sounds, soft to palpation, non-tender and non-distended Extremity no clubbing, cyanosis or edema Extremity Narrative: Pedal pulses are 2+, radial pulses 2+ bilaterally Skin skin turgor normal and no jaundice Skin Narrative: Small area on left forearm where blistering has occurred from Tegaderm Neuro oriented x3, CN's II-XII intact bilaterally, moves all extremities, no focal motor deficits and no sensory deficits noted Neuro Narrative: Gait is still somewhat disorganized and balance is off Sensorium / Orientation: awake, alert, oriented to person, oriented to place and oriented to time Speech: speech normal Psych affect normal Psych Narrative: Very pleasant, interacts appropriately Weight / BMI Weight Weight: 71.1 kg Body Mass Index (BMI) 23.1 ABG / Lab / Microbiology Data 10/26/23 06:45 10/26/23 06:45 Laboratory: Laboratory Results - last 24 hr 10/24/23 05:05: Procalcitonin 1.02 H 10/25/23 16:50: POC Glucose 160 H 10/25/23 20:35: POC Glucose 146 H 10/26/23 06:19: POC Glucose 152 H 10/26/23 06:45: WBC 7.4, RBC 3.72 L, Hgb 10.7 L, Hct 32.7 L, MCV 87.9, MCH 28.8, MCHC 32.7, RDW Std Deviation 42.3, RDW Coeff of Natalee 13.2, Plt Count 289, MPV 11.4, Immature Gran % (Auto) 0.800, Neut % (Auto) 79.4 H, Lymph % (Auto) 9.2 L, Kings % (Auto) 7.3, Eos % (Auto) 3.0, Baso % (Auto) 0.3, Absolute Neuts (auto) 5.9, Absolute Lymphs (auto) 0.68 L, Nucleated RBC % 0, Sodium 137, Potassium 3.3 L, Chloride 106, Carbon Dioxide 23.0, Anion Gap 8, BUN 25 H, Creatinine 1.40 H, Estim Creat Clear Calc 49.10, Est GFR (MDRD) Af Amer 64, Est GFR (MDRD) Non-Af 53 L, BUN/Creatinine Ratio 17.9, Glucose 149 H, Calcium 8.6 10/26/23 11:00: POC Glucose 135 H Microbiology: Microbiology 10/21/23 20:25 Urine, Clean Catch Urine Culture - Final Culture exhibits no growth. 10/21/23 20:25 Urine, Clean Catch Legionella Antigen - Final 10/21/23 20:25 Urine, Clean Catch Streptococcus pneumoniae Antigen (M - Final 10/21/23 20:56 Mucosa - Nasopharyngeal SARS-CoV-2, Influenza & RSV (PCR) - Final D/C Instructions Discharge Diet: Low fat / Low cholesterol and 2200 Calorie Control Diet Discharge Activity: Use Walker (Until told otherwise by physical and Occupational Therapy) Meaningful Use Info Meaningful Use Meaningful Use Diagnoses (Choose all that apply): Ischemic CVA CVA Therapy Assessed for PT,OT and/or ST?: Yes Ischemic Stroke Antithrombotic order at d/c?: Yes Dx of Atrial fib/flutter?: No Anticoagulant at discharge?: No Reason anticoagulant not ordered: Treatment not Indicated Statin Dosing Therapy Reference: STATIN DOSE THERAPY REFERENCE: * Patients > 75 years receive moderate or high dose statin therapy. * Patients 75 years or YOUNGER should receive HIGH intensity statin dose unless contraindicated. You will be required to document reason for non-treatment if statin daily dose does not meet guidelines. HIGH DOSE STATIN THERAPY DAILY Atorvastatin > than or = to 40 mg Rosuvastatin > than or = to 20 mg Amlodipine + Atorvastatin > than or = to 2.5/40 mg Ezetimibe + Simvastatin 10/80 mg Simvastatin 80mg Statins at discharge?: Yes If patient is 75 or younger, pt will be discharged on HIGH intensity statin.: Yes Primary Dx Acute Ischemic CVA?: No IV thrombolytic ordered during stay?: No Reason IV thrombolytic not ordered: Treatment not Indicated Discharge Plan Admission Admit Date/Time: 10/21/23 23:02 Primary Reason for Your Visit: Fever/confusion Attending Provider: Sheri Montenegro Primary Care Provider: Sivan Henderson Consulting Providers: Jose Rafael Vieira; Jose L Bear; Leonardo Yates; Malorie Harrison; Daisha Ramírez; Ania Cedillo; Titi South; Keke Frias; Mina Hassan; Manuel Falcon; Luz Toney; Adria Lombardi; Bonnie Mcmanus; Jose De Jesus Caro; Noble Ramey; Israel Sorensen; Kareen Bangura; Esequiel Hanson; Elizabeth Montenegro; Khloe Shin Instructions Additional Instructions / Restrictions: 1. Please call [facility] and make a follow-up appointment with Dr. Holt at [phone]. This is a neurosurgeon. Tell them you were evaluated at [facility] for a third ventricle mass and the on-call neurosurgeon recommended you follow-up with Dr. Holt in the next 1 to 2 weeks as an outpatient. 2. Use a walker at all times until cleared by physical therapy for no further follow-up 3. Complete antibiotics as below 4. Please follow-up with outpatient Physical and Occupational Therapy after discharge 5. You were found to have small amount of blockages in your neck arteries and I will have you follow-up with Dr. Sin who is a vascular doctor as noted below. Please call to set up an appointment. This is not urgent. Discharge Orders/Prescriptions Prescriptions: New amlodipine 5 mg Tablet 5 mg PO DAILY Qty: 30 1RF levofloxacin 750 mg Tablet 750 mg PO Q48@0600 3 Days Qty: 3 0RF Rx Instructions: Take next dose tomorrow 10/27/2023 metformin 1,000 mg tablet 1,000 mg PO BID Qty: 60 1RF Discontinued metformin 500 mg tablet 500 mg PO BID No Action atorvastatin 40 mg tablet 40 mg PO QHS lisinopril 40 mg tablet 40 mg PO DAILY metoprolol succinate 50 mg tablet extended release 24 hr 50 mg PO DAILY aspirin [Aspirin Childrens] 81 mg tablet,chewable 1 tab PO DAILY multivitamin [Daily Multi-Vitamin] Tablet 1 tab PO DAILY C Complex 1,000 mg tablet extended release 1,000 mg PO DAILY cholecalciferol (vitamin D3) [Vitamin D3] 25 mcg (1,000 unit) capsule 25 mcg PO DAILY vitamin L36-iffdo acid 500-400 mcg tablet 1 tab PO DAILY Rx Instructions: administer with a meal garlic 100 mg tablet 100 mg PO DAILY omega-3 fatty acids Capsule 500 mg PO DAILY Referrals / Follow Up: Harpreet Sin MD [Med Staff - Active Staff] - See Referral Note (1 to 2 months) Sivan Henderson MD [Primary Care Provider] - Within 2 Weeks Disposition Disposition (needs filled in before D/C Order can be placed): Home, Self Care Charges/Coding Visit Charges Inpatient E&M: 95693 Disch Hosp >30min
--- NOTE | 2023-10-26 15:40 | CASEMGMT ---
KAYY NAVARRO updated by JAZMINE that patient and would like outpatient therapy at discharge. KAYY NAVARRO in to discuss outpatient therapy. states would like outpatient therapy at [facility]. states patient has walker at home. Patient and had no further questions or concerns. KAYY NAVARRO received script for outpatient therapy and faxed to [facility]. KAYY NAVARRO provided script to with [facility] information.
--- NOTE | 2023-10-26 16:01 | CHAPLAIN ---
Type of Pastoral Visit _x__ Initial Visit ___ Follow-up Visit ___ On-call Visit ___ General Patient Visit ___ Spiritual Assessment ___ Family Conference ___ Bereavement ___ Rapid Response ___ Code Blue ___ Other (describe below) Pastoral Care Referral From _x__ Patient ___ Family ___ Nurse ___ Physician ___ Bell Tier ___ Lead Cargoman ___ Other (describe below) Sacrament/Intervention _x__ Active listening ___ Anointing ___ Jew ___ Bereavement ___ Communion _x__ Emily exploration ___ _x__ Life review _x__ Prayer ___ Reconciliation ___ Sacrament of Sick _x__ Supportive presence ___ Wedding ___ Other (describe below) Pastoral Comments patient is very talkative and expressive about his life and in particular his current situation; pt is open to discuss his hopes and what makes him happy at this stage of life; pt relates to his emily in God; pt does how some of the why and what questions of this illness but appears to be handling things appropriately
== END 2023-10-26 16:57 | disposition home or self-care (01) | DRG 64 ==
LOC: ED 22:42 → MS3 23:04 → PCU 10-22 11:14
PROVIDERS: Nurse Practitioner; Admitting Provider Internal Medicine; Emergency Provider Emergency Medicine; PCP Family Medicine Sports Medicine; Visit Provider Internal Medicine
DX: I63.81 Other cerebral infarction due to occlusion or stenosis of small artery (principal); J69.0 Pneumonitis due to inhalation of food and vomit; G92.8 Other toxic encephalopathy; E87.1 Hypo-osmolality and hyponatremia; D63.1 Anemia in chronic kidney disease; E11.22 Type 2 diabetes mellitus with diabetic chronic kidney disease; N18.31 Chronic kidney disease, stage 3a; I12.9 Hypertensive chronic kidney disease with stage 1 through stage 4 chronic kidney disease, or unspecified chronic kidney disease; I65.23 Occlusion and stenosis of bilateral carotid arteries; G93.89 Other specified disorders of brain; E78.5 Hyperlipidemia, unspecified; E86.0 Dehydration; R53.1 Weakness; R26.9 Unspecified abnormalities of gait and mobility; R29.703 NIHSS score 3; Z79.01 Long term (current) use of anticoagulants; Z79.82 Long term (current) use of aspirin; Z79.84 Long term (current) use of oral hypoglycemic drugs; Z79.899 Other long term (current) drug therapy
CPT/HCPCS: 36415; 70450; 70544; 70553; 71045; 74230; 80048; 80053; 80061; 80307; 81001; 82077; 82607; 82746; 82962; 83036; 83605; 83735; 83930; 83935; 84100; 84134; 84145; 84443; 84484; 85025; 85027; 85610; 85730; 87040; 87086; 87449; 87631; 92526; 92610; 92611; 93005; 93306; 93880; 94762; 96360; 97110; 97116; 97162; 97166; 97530; 97535; 97802; 99283; 99284; A9575; A4216

== ENCOUNTER 2023-12-08 11:00 | Outpatient (RCR) | payer MEDICARE, SELFPAY ==
--- NOTE | 2023-11-03 12:30 | HP.PTEVAL_ITS ---
Patient's Visit Information Visit Information Visit Information: RIAN RODRIGUEZ is a 68 year old M referred to Physical Therapy by Dr. Sheri Montenegro DO with a diagnosis of DIFFICULTY WITH WALKING ,WEAKNESS. Date of Evaluation: 11/03/23 Physical Therapist: Manuel Clemente, PT, Cert MDT, [facility] Visit Plan Frequency: 2x /Week Duration: 4 Weeks Plan: PT INTERVENTIONS HIGH LEVEL FUNCTIONAL BALANCE ,ENDURANCE PROGRAM ,BLE STRENGTHENING AND FUNCTIONAL STRENGTHENING Subjective Subjective: This patient 68 t/o male presents to physical therapy with difficulty with walking, Patient was admitted with confusion and weakness . Patient was brought to [facility] ER via . Patient was admitted 10/18 and had CTSCAN and MRI showed Acute right 9 mm lacunar type infarct involving the right cortez radiata. Patient was d/c 10/26/23 to home with spouse. Doing well . No falls . No pain. Patient lives in 2 story level patient has walk in shower. Patient is I with bathing and dressing . Patient was d/c with fww but doesn't use. Patient spouse cooking. Patient condition affects QOL . Patient goals to get stronger. RTD November 10 SOCIAL; VOCATION: retired Objective Objective: POSTURE: mild forward posture GAIT: reciprocal pattern BALANCE: good MMT: quads/hams/hip 4/5 ,ankle 5/5 STAIRS: alternating FLEXABILITY: hamstrings mild tight Balance/Special Test Scores Functional Gait Assessment Score: 29 % Disability: 3.3400 CATSIB Score (Max score 120 seconds): 120 Lower Extremity Functional Score: 50 Goals Goal 1:: Patient to be I with high level activity program Goal Time Frame: 4-6 Weeks Goal 2:: Patient to demonstrate 90% improvement with improved function and ADL Goal Time Frame: 4-6 Weeks Goal 3:: Patient to improve LFES score by 5 points to improve QOL and function. Goal Time Frame: 4-6 Weeks Goal 4:: Patient to return to prior level of all function without difficulty with normal endurance. Goal Time Frame: 4-6 Weeks Rehabilitation Potential Physical Therapy Diagnosis: This patient had CVA with mild impairment's with functional endurance and strength thus benefit from skilled PT Rehabilitation Potential: Good Anticipated Interventions Patient/Client Instruction: Educate patient on: Condition and Plan of Care For the Purpose of:: To improve muscle performance and motor function, To improve ability to perform ADL's, To increase tolerance to activity/condition/position, To improve ability of physical actions for home/community/work/leisure, To improve gait and locomotor functions, To increase flexibility/ROM, To improve endurance and To improve balance Therapeutic Exercise to Include: Strength training, Endurance training and Balance training Comment: BLE For the Purpose of:: To improve muscle performance and motor function, To increase tolerance to activity/condition/position, To improve ability of physical actions for home/community/work/leisure, To increase flexibility/ROM, To improve endurance and To improve balance Text: Thank you for the opportunity to evaluate your patient. For Medicare and Medicare HMO plans, please review the plan of care and approve it. It will need to be FAXED BACK to us at [phone] for Medicare purposes. For Medicare only, by signing this I certify the plan of care. Please let me know if there are questions or concerns regarding this plan of care. Physician Signature: Date:
--- NOTE | 2023-11-08 18:20 | ST ---
[facility] Speech Pathology [address] [place] [address] Modified Barium Swallow Study MR#: [id number] Acct: [id number] Name: RIAN RODRIGUEZ Rep #: [id number] : 1955 68 From: Denisse Kiran M.A., [facility]-SAFETY COUNSELOR SAFETY COUNSELOR reviewed images with Dr. Larsen, who confirmed presence of cervical osteophytes described in the impressions below. He also acknowledged small pouch-like collection of barium below the UES to be a small diverticulum. No intervention recommended at this time due to very small size. Modified Barium Swallow Patient Information Study Date: 10/22/23 Study Time: 13:30 Direct Billable Minutes: 62 Total Minutes procedure & reportin Diagnosis: Mass of Brain G93.89; PNA J18.9 Referring Physician: Sheri Montenegro Reason for Referral: Objectively assess swallow function, assess risk for aspiration, and determine recommendations for least restrictive diet textures and compensatory strategies to improve safety of swallow. Medical History: PMH: HTN, Hearing Deficit, DM type 2, HLD. He had recent evaluation in our ER for fever, diarrhea, and altered mental status with suspicion for possible adverse drug reaction to metformin on October 19, 2023. He re-presented to [facility] ER 10/21/23 with fever and confusion. According to his the patient's symptoms began approximately 4 to 5 days prior to admission with intermittent fevers up to 102 ?F for the past 2 days that she treated with oral Tylenol. The patient also admitted to increased urination and intermittent urinary incontinence. His was concerned because he was not acting like himself. provided much of his history. In the ER, he was noted to have radiographic evidence of a Left lower lobe infiltrate consistent with suspected community-acquired pneumonia with laboratory evidence of leukocytosis of 14.1. He also had clinical evidence of respiratory insufficiency and mild dehydration. There was also concern for protein-calorie malnutrition compounded by acute metabolic encephalopathy and generalized weakness with ambulatory dysfunction. CT evidence of a ~5 mm round mass in his third ventricle. He was admitted to PCU for medical care. Brain MRI 10/22/23 IMPRESSION: 1. Acute right 9 mm lacunar type infarct involving the right cortez radiata. 2. 8mm lesion within or adjacent to the right side of third ventricle which may represent, an ependymoma, subependymoma, central neurocytoma, choroid plexus papilloma or intraventricular meningioma. Current Diet Ordered: Regular textures / Thin liquids Dentition: Natural Teeth and Missing Teeth Mental Status: Impaired (Toxic metabolic encephalopathy) Respiratory Status: Oxygenating on Room Air Penetration-Aspiration Scale Penetration-Aspiration Scale: OBJECTIVE ASSESSMENT OF SWALLOW FUNCTION (QUANTITATIVE ? PER TRIAL): PENETRATION / ASPIRATION SCALE (BARFIELD): 1 = does not enter airway 2 = enters airway/above vocal folds/ejected 3 = enters airway/above vocal folds/not ejected 4 = enters airway/contacts vocal folds/ejected 5 = enters airway/contacts vocal folds/not ejected 6 = enters airway/below vocal folds/ejected 7 = enters airway/below vocal folds/not ejected despite effort 8 = enters airway/below vocal folds/no effort VIDEOFLOROSCOPIC SCALE SCORE (BARFIELD): Grade I = aspiration of material that has penetrated into the laryngeal vestibule, intact cough reflex Grade II = aspiration < 10 % of the bolus, intact cough reflex Grade III = aspiration of < 10 % of the bolus, reduced cough reflex or aspiration of > 10 % of the bolus, intact cough reflex Grade IV = aspiration of > 10 % of the bolus, reduced cough reflexPenetration-Aspiration Scale Score Thin Liquid via teaspoon: Result: 1= does not enter airway Thin Liquid via teaspoon Trial 2: Result: 1= does not enter airway Thin Liquid via large single sip: cup: Result: 1= does not enter airway Thin Liquid via sequential sips: cup: Result: 1= does not enter airway Comment: Patient became short of breath and SAFETY COUNSELOR monitored SpO2 the remainder of the evaluation, which remained mid 90s. [place] Thick Liquid via small single sip: cup: Result: 1= does not enter airway Pudding via teaspoon: Result: 1= does not enter airway Comment: Esophageal screen - Complete clearance. 06/03 Cookie: Result: 1= does not enter airway Comment: Esophageal screen - Mild retention of cookie in the mid-lower esophagus. Thin Liquid via single sip: straw: Result: 1= does not enter airway Oral Phase Labial Seal: Escape beyond interlabial space; no extension beyond mitra border Tongue Control During Bolus Hold: Escape to lateral buccal cavity/floor of mouth Bolus Preparation/Mastication: Slow prolonged chewing/mashing with complete recollection Bolus Transport/Lingual Motion: Delayed initiation of tongue motion Pharyngeal Phase Initiation of Pharyngeal Swallow: Bolus head in valleculae Soft Palate Elevation: No bolus between soft palate and pharyngeal wall Laryngeal Elevation: Comp. Superior move thyroid cart w/comp. apprx arytenoid cart-epig pet Anterior Hyoid Excursion: Partial anterior movement Epiglottic Movement: Partial inversion (inconsistent) Laryngeal Vestibule Closure at Height of Swallow: Complete; no air/contrast in laryngeal vestibule Pharyngeal Stripping Wave: Present - complete Pharyngoesophageal Segment Opening: Parital distension and partial duration; parital obstruction of flow Tongue Base Retraction: Narrow column of contrast between tongue base & post. pharyngeal wall Pharyngeal Residue: Collection of residue within or on pharyngeal structures Esophageal Phase Esophageal Clearance: Esophageal retention w/ retrograde flow through pharyngoesophageal seg Diagnosis/Impression Diagnosis: Mild oropharyngeal dysphagia R13.12 Impression: The oral phase was primarily marked by... -Loss of portion of liquid bolus to FOM; otherwise, good bolus control. -Delayed initiation of tongue motion. -Prolonged, but complete mastication with the patient easily fatiguing from both eating and drinking. The pharyngeal phase was primarily marked by... -Mildy decreased tongue base retraction resulting in mild pharyngeal residue after the swallow. -Decreased anterior hyoid excursion and inconsistent epiglottic inversion; however, he maintained good airway closure during the swallow with no laryngeal penetration or aspiration observed. The esophageal phase was primarily marked by... -Mild retention of cookie in the mid-lower esophagus. -Small, pouch-like collection of barium at the level of C6-C-7. SAFETY COUNSELOR to review this finding, as well as the bony anterior protrusions observed on C5 and C6, with radiologist, Dr. Larsen, on 10/26/23.Figure 1. Retention of thin liquids via straw in pouch-like collection in the upper esophagus with retrograde flow to the pyriforms after the swallow was complete. Recommendations Diet: Regular Textures (Easy to Chew Textures - IDDSI Level 7 ) and Thin Liquids Compensatory Strategies: Small Bites, Small Sips, Slow Rate, Sitting upright and Remain sitting upright for 30 minutes after PO intake Supervision: Assist as needed (Assist feeding as needed d/t the patient becoming easily overexerted) Recommend Repeat Modified Barium Swallow: No Need for Skilled Speech Therapy Services: Yes Comment: -Train the patient in use of strategies to decrease risk for aspiration. -Train the patient in oropharyngeal exercise program to improve tongue base retraction and anterior hyoid excursion (Deysi Pollack). Recommended Referrals: Dietitian Consult (SAFETY COUNSELOR spoke with communications agentPhuong, and expressed concerns for the patient consuming adequate nutrition/hydration because he fatigues so easily when eating and drinking.) Education Completed: 1. Described result of evaluation., 2. Pt understands evaluation & agrees with goals and treatment plan. and 7. Pt requires further education on strategies & risks. Status Active ST Patient: Active Contact Information [facility] Speech Therapy:: Denisse Kiran M.A. CCC-SAFETY COUNSELOR? Speech-Language Pathologist?? [place] [address]?? [place] [address]?? [email or web address]?? [phone] 10/22/23 152 <Electronically signed by Denisse Kiran M.A. CCC-SAFETY COUNSELOR> Denisse Kiran M.A. CCC-SAFETY COUNSELOR
--- NOTE | 2023-11-09 06:17 | HP.OTEVAL_ITS ---
Patient's Visit Information Visit Information Visit Information: RIAN RODRIGUEZ is a 68 year old M, referred to Occupational Therapy by Dr. Sheri Montenegro DO, with a diagnosis of weakness, flushing, dysphagia. Date of Evaluation: 11/08/23 Occupational Therapist: Sharon Sharp, MARK ANTHONYR/Chet, CHT Subjective Subjective: This 68 year old male was seen for OT eval with dx of weakness, flushing, dysphagia. pt states he noticed he was having difficulty walking from his home to his detached barn. He was making multiple trips and noticed he was unable to do as much. pt states he went to ER. pt states he went to hospital on 10/19/23 and was found to be dehydrated- returned home and still was unable to have energy to perform daily tasks. pts made him return to hospital on 10/21/23 and he was found to have pneumonia and stroke- pt was released on 10/26/23. pt states since he has been home and has made efforts to stay hydrated and eat, he has noticed he has gained increase strength and with walking his dog he has noticed his mind does not feel as foggy. pt states he feels in regards to OT services he is at his PLOF. ADLs Comments: pt lives with - states he is doing all ADLS at his PLOF. ppt states he does exercise on a reg. basis pt walks dog two blocks 2x a day. pt does do the yard work pt states he is even able to play his saxophone. ROM ROM Comments: pt demo ROM WNL Strength Shoulder: flexion right 14# left 16# Elbow: Biceps right 25# left 23# triceps right 30# left 25# Building Architectural Designer: right 105# left 110# Lateral Pinch: right 20# left 22# Tripod Pinch: right 20# left 22# Sensation Sensation Comments: denies Quick DASH-Disab of Arm,Shoulder& Hand Quick DASH Score: 6.6650 Rehabilitation General Assessment: Based on objective measures pt demo with functional strength and safety awareness. Pt does not demo need for skilled OT services. pt at this time states he has returned to performing his ADLs and IADLS at his PLOF. PT state he will return to his UB workout. with objective measures pt denies need for skilled OT services-will cont. with physical therapy and follow up with speech. Visit Plan TEXT: Thank you for the opportunity to evaluate your patient. For Medicare and Medicare HMO plans, please review the plan of care and approve it. It will need to be FAXED BACK to us at [phone] for Medicare purposes. Please let me know if there are questions or concerns regarding this plan of care. Physician Signature: Date:
--- NOTE | 2023-11-10 10:11 | HP.SP.EV_ITS ---
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 RX HERE Medical Diagnosis: Dysphagia Previous speech therapy: Yes Results: In the hospital short term to evaluate dysphagia Other Relevant Medical History/Diagnoses/Surgery: PMH: HTN, Hearing Deficit, DM type 2, HLD. He had recent evaluation in our ER for fever, diarrhea, and altered mental status with suspicion for possible adverse drug reaction to metformin on October 19, 2023. He re-presented to [facility] ER 10/21/23 with fever and confusion. According to his the patient's symptoms began approximately 4 to 5 days prior to admission with intermittent fevers up to 102 ?F for the past 2 days that she treated with oral Tylenol. The patient also admitted to increased urination and intermittent urinary incontinence. His was concerned because he was not acting like himself. provided much of his history. In the ER, he was noted to have radiographic evidence of a Left lower lobe infiltrate consistent with suspected community-acquired pneumonia with laboratory evidence of leukocytosis of 14.1. He also had clinical evidence of respiratory insufficiency and mild dehydration. There was also concern for protein-calorie malnutrition compounded by acute metabolic encephalopathy and generalized weakness with ambulatory dysfunction. CT evidence of a ~5 mm round mass in his third ventricle. He was admitted to PCU for medical care. Brain MRI 10/22/23 IMPRESSION: 1. Acute right 9 mm lacunar type infarct involving the right cortez radiata. 2. 8mm lesion within or adjacent to the right side of third ventricle which may represent, an ependymoma, subependymoma, central neurocytoma, choroid plexus papilloma or intraventricular meningioma. Medications related to this diagnosis: ascorbic acid (vitamin C) 1,000 mg tablet,extended release (C Complex) 1,000 mg PO DAILY vitamin 10/21/23 aspirin 81 mg chewable tablet (Aspirin Childrens) 1 tab PO DAILY heart health 10/21/23 atorvastatin 40 mg tablet 40 mg PO QHS 10/21/23 cholecalciferol (vitamin D3) 25 mcg (1,000 unit) capsule (Vitamin D3) 25 mcg PO DAILY 10/21/23 garlic 100 mg tablet 100 mg PO DAILY 10/21/23 lisinopril 40 mg tablet 40 mg PO DAILY 10/21/23 metoprolol succinate 50 mg tablet,extended release 24 hr 50 mg PO DAILY 10/21/23 multivitamin (Daily Multi-Vitamin tablet) 1 tab PO DAILY 10/21/23 omega-3 fatty acids 500 mg PO DAILY 10/21/23 vitamin B12 500 mcg-folic acid 400 mcg tablet 1 tab PO DAILY 10/21/23 amlodipine 5 mg tablet 5 mg PO DAILY #30 tabs 10/26/23 levofloxacin 750 mg tablet 750 mg PO Q48@0600 3 days #3 tabs 10/26/23 metformin 1,000 mg tablet 1,000 mg PO BID #60 tabs 10/26/23 Smoking Status: Never smoker Diagnosis Diagnosis: Dysphagia Pain Is pain an issue with your current prescribed condition?: No Personal Preferred language: [place] Patient Allergies Allergies Allergies: Allergies No Known Allergies Allergy (Verified 10/21/23 20:09) Subjective Dysphagia Symptoms Reported Symptoms/Problems with: Hx of Pneumonia Current Diet Solids Current Diet: Regular Current Diet Liquids Current Liquids: Thin Objective Dysphagia Administered by Administered by: Self Thin Liquids Administred via: Cup Oral Transit: WNL Bolus clearance: fully cleared Gagging: No Cough: none observed/unable to assess Patient Report: No deficits. Regular Oral Preparation: WNL Oral Transit: WNL Bolus clearance: fully cleared Gagging: No Cough: none observed/unable to assess Patient Report: No deficits. Impact Impact on Safety & Functioning: No Limitations Recommendations Modified Barium Swallow/Cookie Swallow Recommended: No Swallowing Treatment: No Diet Texture Recommendations Solids: Regular (Level 7) Liquids: Thin (Level 0) Results Swallowing Within Normal Limits: Yes Objective Oral Motor Labial Impairment: WNL Closure: WNL Pucker: WNL Retraction: WNL Alternating Pucker/Retraction: WNL Involuntary Movement noted: No Lingual Impairment: WNL Protrusion: WNL Retraction: WNL Lateralization: WNL Involuntary Movement: No Jaw Impairment: WNL Opening: WNL Closing: WNL Involuntary Movement: No Respiratory Status Respiratory Status: Room Air Modified Barium Results Hx If Applicable Enter into a NOTE MBS Results (from prior exam): 11/08/23 18:20 Speech Therapy by Quintin Greenwood [facility] Speech Pathology [address] [place] [address] Modified Barium Swallow Study MR#: [id number] Acct: [id number] Name: RIAN RODRIGUEZ Rep #: [id number] : 1955 68 From: Denisse Kiran M.A., CCC-WELCOME DESK AGENT WELCOME DESK AGENT reviewed images with Dr. Larsen, who confirmed presence of cervical osteophytes described in the impressions below. He also acknowledged small pouch-like collection of barium below the UES to be a small diverticulum. No intervention recommended at this time due to very small size. Modified Barium Swallow Patient Information Study Date: 10/22/23 Study Time: 13:30 Direct Billable Minutes: 62 Total Minutes procedure & reportin Diagnosis: Mass of Brain G93.89; PNA J18.9 Referring Physician: Sheri Montenegro Reason for Referral: Objectively assess swallow function, assess risk for aspiration, and determine recommendations for least restrictive diet textures and compensatory strategies to improve safety of swallow. Medical History: PMH: HTN, Hearing Deficit, DM type 2, HLD. He had recent evaluation in our ER for fever, diarrhea, and altered mental status with suspicion for possible adverse drug reaction to metformin on October 19, 2023. He re-presented to [facility] ER 10/21/23 with fever and confusion. According to his the patient's symptoms began approximately 4 to 5 days prior to admission with intermittent fevers up to 102 ?F for the past 2 days that she treated with oral Tylenol. The patient also admitted to increased urination and intermittent urinary incontinence. His was concerned because he was not acting like himself. provided much of his history. In the ER, he was noted to have radiographic evidence of a Left lower lobe infiltrate consistent with suspected community-acquired pneumonia with laboratory evidence of leukocytosis of 14.1. He also had clinical evidence of respiratory insufficiency and mild dehydration. There was also concern for protein-calorie malnutrition compounded by acute metabolic encephalopathy and generalized weakness with ambulatory dysfunction. CT evidence of a ~5 mm round mass in his third ventricle. He was admitted to PCU for medical care. Brain MRI 10/22/23 IMPRESSION: 1. Acute right 9 mm lacunar type infarct involving the right cortez radiata. 2. 8mm lesion within or adjacent to the right side of third ventricle which may represent, an ependymoma, subependymoma, central neurocytoma, choroid plexus papilloma or intraventricular meningioma. Current Diet Ordered: Regular textures / Thin liquids Dentition: Natural Teeth and Missing Teeth Mental Status: Impaired (Toxic metabolic encephalopathy) Respiratory Status: Oxygenating on Room Air Penetration-Aspiration Scale Penetration-Aspiration Scale: OBJECTIVE ASSESSMENT OF SWALLOW FUNCTION (QUANTITATIVE ? PER TRIAL): PENETRATION / ASPIRATION SCALE (BARFIELD): 1 = does not enter airway 2 = enters airway/above vocal folds/ejected 3 = enters airway/above vocal folds/not ejected 4 = enters airway/contacts vocal folds/ejected 5 = enters airway/contacts vocal folds/not ejected 6 = enters airway/below vocal folds/ejected 7 = enters airway/below vocal folds/not ejected despite effort 8 = enters airway/below vocal folds/no effort VIDEOFLOROSCOPIC SCALE SCORE (BARFIELD): Grade I = aspiration of material that has penetrated into the laryngeal vestibule, intact cough reflex Grade II = aspiration < 10 % of the bolus, intact cough reflex Grade III = aspiration of < 10 % of the bolus, reduced cough reflex or aspiration of > 10 % of the bolus, intact cough reflex Grade IV = aspiration of > 10 % of the bolus, reduced cough reflexPenetration- Aspiration Scale Score Thin Liquid via teaspoon: Result: 1= does not enter airway Thin Liquid via teaspoon Trial 2: Result: 1= does not enter airway Thin Liquid via large single sip: cup: Result: 1= does not enter airway Thin Liquid via sequential sips: cup: Result: 1= does not enter airway Comment: Patient became short of breath and WELCOME DESK AGENT monitored SpO2 the remainder of the evaluation, which remained mid 90s. [place] Thick Liquid via small single sip: cup: Result: 1= does not enter airway Pudding via teaspoon: Result: 1= does not enter airway Comment: Esophageal screen - Complete clearance. 06/03 Cookie: Result: 1= does not enter airway Comment: Esophageal screen - Mild retention of cookie in the mid-lower esophagus. Thin Liquid via single sip: straw: Result: 1= does not enter airway Oral Phase Labial Seal: Escape beyond interlabial space; no extension beyond mitra border Tongue Control During Bolus Hold: Escape to lateral buccal cavity/floor of mouth Bolus Preparation/Mastication: Slow prolonged chewing/mashing with complete recollection Bolus Transport/Lingual Motion: Delayed initiation of tongue motion Pharyngeal Phase Initiation of Pharyngeal Swallow: Bolus head in valleculae Soft Palate Elevation: No bolus between soft palate and pharyngeal wall Laryngeal Elevation: Comp. Superior move thyroid cart w/comp. apprx arytenoid cart-epig pet Anterior Hyoid Excursion: Partial anterior movement Epiglottic Movement: Partial inversion (inconsistent) Laryngeal Vestibule Closure at Height of Swallow: Complete; no air/contrast in laryngeal vestibule Pharyngeal Stripping Wave: Present - complete Pharyngoesophageal Segment Opening: Parital distension and partial duration; parital obstruction of flow Tongue Base Retraction: Narrow column of contrast between tongue base & post. pharyngeal wall Pharyngeal Residue: Collection of residue within or on pharyngeal structures Esophageal Phase Esophageal Clearance: Esophageal retention w/ retrograde flow through pharyngoesophageal seg Diagnosis/Impression Diagnosis: Mild oropharyngeal dysphagia R13.12 Impression: The oral phase was primarily marked by... -Loss of portion of liquid bolus to FOM; otherwise, good bolus control. -Delayed initiation of tongue motion. -Prolonged, but complete mastication with the patient easily fatiguing from both eating and drinking. The pharyngeal phase was primarily marked by... -Mildy decreased tongue base retraction resulting in mild pharyngeal residue after the swallow. -Decreased anterior hyoid excursion and inconsistent epiglottic inversion; however, he maintained good airway closure during the swallow with no laryngeal penetration or aspiration observed. The esophageal phase was primarily marked by... -Mild retention of cookie in the mid-lower esophagus. -Small, pouch-like collection of barium at the level of C6-C-7. WELCOME DESK AGENT to review this finding, as well as the bony anterior protrusions observed on C5 and C6, with radiologist, Dr. Larsen, on 10/26/23.Figure 1. Retention of thin liquids via straw in pouch-like collection in the upper esophagus with retrograde flow to the pyriforms after the swallow was complete. Recommendations Diet: Regular Textures (Easy to Chew Textures - IDDSI Level 7 ) and Thin Liquids Compensatory Strategies: Small Bites, Small Sips, Slow Rate, Sitting upright and Remain sitting upright for 30 minutes after PO intake Supervision: Assist as needed (Assist feeding as needed d/t the patient becoming easily overexerted) Recommend Repeat Modified Barium Swallow: No Need for Skilled Speech Therapy Services: Yes Comment: -Train the patient in use of strategies to decrease risk for aspiration. -Train the patient in oropharyngeal exercise program to improve tongue base retraction and anterior hyoid excursion (Deysi Pollack). Recommended Referrals: Dietitian Consult (WELCOME DESK AGENT spoke with grooving lathe tender, Phuong, and expressed concerns for the patient consuming adequate nutrition/hydration because he fatigues so easily when eating and drinking.) Education Completed: 1. Described result of evaluation., 2. Pt understands evaluation & agrees with goals and treatment plan. and 7. Pt requires further education on strategies & risks. Status Active ST Patient: Active Contact Information [facility] Speech Therapy:: Denisse Kiran M.A. CCC-WELCOME DESK AGENT? Speech-Language Pathologist?? [facility] [address]?? [place] [address]?? [email or web address]?? [phone] 10/22/23 1523 <Electronically signed by Denisse Kiran M.A. CCC-WELCOME DESK AGENT> Denisse Kiran M.A., CCC-WELCOME DESK AGENT Initialized on 11/08/23 18:20 - END OF NOTE Swallowing Performance Scale Swallowing Performance Scale Swallowing Performance Scale Result: 1 Normal Reference: Neuro-QoL instrument Radiation Oncology Patient Plan Plan Plan: No further therapy needed for dysphagia. Recommend regular diet with thin liquids. No compensatory strategies needed. Education Patient has Indicated that the Following Identified Educational Needs: None The Patient has indicated that they have no educational or learning abilities that may effect their care.: Yes Patient Instruction Patient Education: Diagnosis, Treatment Plan and Diet Level Person Taught: Patient and Significant Other Teaching Method: Discussion Response to teaching: Verbalize understanding
--- NOTE | 2023-12-08 11:21 | HP.PTDCSUM ---
Discharge Summary D/C summary: It has been my pleasure to treat RIAN RODRIGUEZ referred by Dr. Sheri Montenegro DO, with the diagnosis of DIFFICULTY WITH WALKING ,WEAKNESS for a total of 10 visit(s). Discharge Date: Please see the following information for a summary of their discharge status. Subjective Subjective: Doing great ,plan to do [facility] with [facility] Overall Improvement % Improvement: 100 Objective Objective/Function: POSTURE: mild forward posture GAIT: reciprocal pattern BALANCE: good MMT: quads/hams/hip 5/5 ,ankle 5/5 STAIRS: alternating FLEXABILITY: hamstrings mild tight Goals Goal 1:: Patient to be I with high level activity program Goal Progress: Goal Met Goal 2:: Patient to demonstrate 90% improvement with improved function and ADL Goal Progress: Goal Met Goal 3:: Patient to improve LFES score by 5 points to improve QOL and function. Goal Progress: Goal Met Goal 4:: Patient to return to prior level of all function without difficulty with normal endurance. Goal Progress: Goal Met Plan Plan: D/ C TO GYM PROGRAM D/C Information d/c sentence: If there are questions or concerns regarding this patient's physical therapy, please feel free to call me at [phone]. Thank you for the referral of this patient. Sincerely, Manuel Clemente, PT, Cert MDT, OCS Balance/Gait/Functional tests Balance/Special Test Scores Functional Gait Assessment Score: 30 % Disability: 0 CATSIB Score (Max score 120 seconds): 120 Lower Extremity Functional Score: 76 Improvement % Improvement: 100
== END 2023-12-08 19:00 | disposition home or self-care (01) ==
LOC: PT 11:00
PROVIDERS: PCP Family Medicine Sports Medicine; Referring Provider Internal Medicine; Visit Provider Internal Medicine
DX: R13.12 Dysphagia, oropharyngeal phase (principal); R26.2 Difficulty in walking, not elsewhere classified; R53.1 Weakness; G93.89 Other specified disorders of brain
CPT/HCPCS: 92610; 97110; 97162; 97166; 97530

== ENCOUNTER → 2024-12-04 | Outpatient (CLI) | payer MEDICARE, SELFPAY | END | disposition home or self-care (01) | PROVIDERS: PCP Family Medicine Sports Medicine; Referring Provider Physician Assistant; Visit Provider Physician Assistant | DX: I65.23 Occlusion and stenosis of bilateral carotid arteries (principal) | CPT/HCPCS: 93880 ==

== ENCOUNTER → 2024-12-15 | Outpatient (CLI) | payer MEDICARE, SELFPAY ==
[2024-12-15 10:43] LABS: Hematocrit 35.2 % (40-54); Hemoglobin 11.0 g/dL (13.0-16.5); Mean Corp Hgb Conc 31.3 g/dL (32-36); Mean Corpuscular Volume 91.7 fL (80-94); Mean Platelet Vol. 11.6 fl (6.2-12.0); Platelet Count 167 K/mm3 (150-450); RBC Distribution Width CV 14.2 % (11.6-14.6); RBC Distribution Width SD 47.6 fl (35.1-43.9); Red Blood Count 3.84 M/mm3 (4.6-6.2); White Blood Count 4.6 K/mm3 (4.4-11.0)
[2024-12-15 12:36] LABS: AST(SGOT) 30 U/L (<=37); Alanine Aminotransfer ALT/SGPT 21 U/L (<=46); Albumin, Serum 4.3 g/dL (3.4-4.8); Alkaline Phosphatase 71 U/L (40-129); Anion Gap 11 (5-15); BUN 35 mg/dL (4-19); BUN/Creat Ratio 24.4 RATIO (10-20); Calcium,Total 9.6 mg/dL (7.6-11.0); Carbon Dioxide 25.2 mmol/L (21.0-32.0); Chloride 104 mmol/L (98-108); Cholesterol 109 mg/dL (<=200); Globulin 4.1 g/dL (2.2-4.2); Glucose 117 mg/dL (70-99); Low Density Lipoprotein Calc. 64 mg/dL; Potassium 4.8 mmol/L (3.3-5.1); Triglycerides 61 mg/dL; Very Low Density Lipoprotein 12 mg/dL (5-40); cholesterol:hdl ratio screen 3.30
[2024-12-15 13:01] LABS: Iron 66 ug/dL (65-175)
[2024-12-15 13:06] LABS: Ferritin 36 ng/mL (37-417); Vitamin B12 > 4000 pg/mL (180-914)
[2024-12-19 12:08] LABS: Vitamin D 1,25-Dihydroxy 38.6 pg/mL (24.8-81.5)
[2024-12-20 14:09] LABS: Folate, Hemolysate Test 444.0 ng/mL (Not Estab.); Folate, RBC (Hct) Test 35.2 % (37.5-51.0); Folates, RBC Test 1261 ng/mL (>498); Vitamin B1, Thiamine 109.4 nmol/L (66.5-200.0)
== END | disposition home or self-care (01) ==
LOC: MTLAB 08:39
PROVIDERS: PCP Family Medicine Sports Medicine; Referring Provider Psychiatry & Neurology Neurology; Visit Provider Psychiatry & Neurology Neurology
DX: G31.84 Mild cognitive impairment of uncertain or unknown etiology (principal); Z86.2 Personal history of diseases of the blood and blood-forming organs and certain disorders involving the immune mechanism; I10 Essential (primary) hypertension; G57.90 Unspecified mononeuropathy of unspecified lower limb
CPT/HCPCS: 36415; 80053; 80061; 82607; 82652; 82728; 82747; 83540; 83883; 84425; 84443; 85014; 85027

== ENCOUNTER → 2025-01-12 | Outpatient (CLI) | payer MEDICARE, OTHER, SELFPAY ==
--- NOTE | 2025-01-12 09:18 | ART_ITS ---
Reason For Study Reason For Study: Decreased Pedal Pulses Procedure A bilateral lower extremity continuous wave Doppler with analog waveform analysis and ankle brachial indexes. Left Segmental Pressures Left brachial= 152mmHg. Left posterior tibial artery = 108mmHg. Left dorsalis pedis artery = 116mmHg. Left digit = 108 mmHg. The left posterior tibial artery waveforms are biphasic. The left dorsalis pedis waveforms are biphasic. Right Segmental Pressures Right brachial= 159mmHg. Right posterior tibial artery = 118mmHg. Right dorsalis pedis artery = 108mmHg. Right digit = 78 mmHg. The right posterior tibial artery waveforms are biphasic. The right dorsalis pedis waveforms are biphasic. Indices The right ankle brachial index by the posterior tibial artery is 0.74. The right ankle brachial index by the dorsalis pedis is 0.68. The right digital-brachial index is 0.49. The left ankle brachial index by the posterior tibial artery is 0.68. The left ankle brachial index by the dorsalis pedis is 0.73. The left digital-brachial index is 0.68. VL/Ankle Brachial Index Interpretation Summary Biphasic Doppler waveforms are noted at ankle level bilaterally. Pulse-volume r ecordings appear diminished at digital level bilaterally, but satisfactory at ankle level bilaterally. Resting ankle-b rachial indices are moderately diminished bilaterally. The right digital-brachial index is moderately diminished. The lef t digital-brachial index is mildly diminished. Moderate arterial occlusive disease is noted in the right lower extremity. Mild -to-moderate arterial occlusive disease is noted in the left lower extremity. Ordering Physician: Antony Lucio Referring Physician: Sivan Henderson Performed By: Ezequiel Ramirez RVT
--- NOTE | 2025-01-12 09:54 | MRI_ITS ---
PROCEDURE: BRAIN W/WO CONTRAST 01/12/2025 REASON FOR EXAM: MILD COGNTIVE IMPAIMENT; HX CVA; ? 3RD VENTRIC MAS TECHNIQUE: BRAIN W/WO CONTRAST Multiplanar and multisequence images were obtained. CONTRAST: Clariscan VOLUME: 13 mL COMPARISON: MRI brain with and without contrast, 10/22/2023. FINDINGS: There are chronic lacunar infarctions in the periventricular white matter of both frontal lobes and in both thalami. There is periventricular and subcortical white matter signal abnormality consistent with chronic ischemic white matter disease in both cerebral hemispheres. There is no abnormal intracranial contrast enhancement. 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 There is a normal sulcal pattern and gyral configuration. There is no evidence of acute intracranial hemorrhage or infarction. The desir-white differentiation is well preserved. There is no evidence of restricted diffusion. The ventricles and basilar cisterns are normal. There are normal flow voids demonstrated in the recognized intracranial vessels. The cerebellum and brainstem are unremarkable. The cerebellar pontine angles are normal. The craniovertebral junction is normal. The sella and suprasellar regions are normal. The orbits and retro-orbital regions are unremarkable. There is nasal septal deviation to the left. There is a left-sided nasal spur. There is mucoperiosteal thickening of the frontal sinuses, the ethmoidal air cells, the maxillary sinuses and the sphenoid sinuses. There is mucoid material within the right maxillary sinus containing calcifications consistent with fungal sinusitis. There are multiple fluid-filled mastoid air cells on the right. There is normal bone marrow signal in the skull base and calvarium. MRI/Brain W/WO Contrast IMPRESSION: 1. 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 2. Chronic lacunar infarctions in the periventricular white matter of both fro ntal lobes and in the thalami. 3. Chronic ischemic white matter disease. Reading Location: [place] [address]
== END | disposition home or self-care (01) ==
LOC: MRI 09:16
PROVIDERS: PCP Family Medicine Sports Medicine; Referring Provider Psychiatry & Neurology Neurology; Visit Provider Psychiatry & Neurology Neurology
DX: R09.89 Other specified symptoms and signs involving the circulatory and respiratory systems (principal)
CPT/HCPCS: 70553; 93922; A9575

== ENCOUNTER → 2025-03-13 | Outpatient (CLI) | payer MEDICARE, OTHER, SELFPAY ==
[2025-03-16 16:09] LABS: Albumin 3.5 g/dL (2.9-4.4); Gamma Globulin 2.1 g/dL (0.4-1.8); Immunoglobulin A 396 mg/dL (61-437); Immunoglobulin G 2146 mg/dL (603-1613); Immunoglobulin M 56 mg/dL (15-143); PROEL- TOTAL PROTEIN 8.0 g/dL (6.0-8.5)
== END | disposition home or self-care (01) ==
LOC: MTLAB 12:50
PROVIDERS: PCP Family Medicine Sports Medicine; Referring Provider Psychiatry & Neurology Neurology; Visit Provider Psychiatry & Neurology Neurology
DX: G57.90 Unspecified mononeuropathy of unspecified lower limb (principal)
CPT/HCPCS: 36415; 82784; 84165; 86334; 86335